=== PATIENT | female | born 1940 | race Caucasian/White ===

== ENCOUNTER 2021-08-29 11:17 | Inpatient (IN) ==
[2021-08-29] MEDS ORDERED: fentaNYL citrate 100 MCG/2 ML VIAL IV STA (11:48)
[2021-08-29 12:03] LABS: Basophils # (auto) 0.02 K/uL (0-0.2); Basophils % (auto) 0.3 %; Eosinophils # (auto) 0.22 K/uL (0-0.5); Hematocrit (blood only) 42.7 % (37-47); Hemoglobin 13.3 g/dL (12.0-16.0); Immature Granulocytes # (auto) 0.04 K/uL (0.00-0.02); Immature Granulocytes % (auto) 0.5 %; Lymphocytes # (auto) 1.01 K/uL (1.2-3.4); Lymphocytes % (auto) 13.6 %; Mean Corpuscular Hemoglobin 28.3 pg (25-34); Mean Corpuscular Hgb Conc 31.1 g/dL (32-36); Mean Corpuscular Volume 90.9 fL (80-100); Mean Platelet Volume 10.9 fL (7.4-10.4); Monocytes # (auto) 0.37 K/uL (0.11-0.59); Neutrophils # (auto) 5.74 K/uL (1.4-6.5); Neutrophils % (auto) 77.6 %; Platelet Count 200 K/uL (130-400); RDW Coefficient of Variation 14.5 % (11.5-14.5); RDW Standard Deviation 48.1 fL (36.4-46.3)
[2021-08-29 12:05] LABS: Appearance Urine Clear (Clear); Bilirubin Urine Negative (Negative); Blood Urine Negative (Negative); Color Urine Yellow; Glucose Urine UA Negative (Negative); Ketones Urine Trace (Negative); Leukocyte Esterase Urine Negative (Negative); Nitrite Urine Negative (Negative); Protein Urine Negative (Negative); Specific Gravity Urine 1.014 (1.000-1.030); Urobilinogen Urine Negative (Negative)
[2021-08-29 12:19] LABS: Troponin I High Sensitivity 7.9 pg/ml (0-14)
[2021-08-29 12:21] LABS: Albumin Globulin Ratio 1.3 (0.9-2); Albumin Level 3.5 gm/dl (3.4-5.0); BUN Creatinine Ratio 19.1 (10-20); Bilirubin,Total 0.6 mg/dl (0.2-1.0); Calcium 8.5 mg/dl (8.5-10.1); Creatinine Clr Calc Pharmacy 37.4 ml/min; Est GFR (African American) 54.5 ml/min; Globulin 2.7 gm/dl (2.5-4.0); Total Protein 6.2 gm/dl (6.0-8.3)
--- NOTE | 2021-08-29 12:27 | Emergency Department Note ---
Impression & Plan Near syncope, Splenic infarct, Anticoagulant long-term use, Abdominal pain, Carotid aneurysm, right ED Provider Note Provider: Joey Patricio MD DATE OF SERVICE: 08/29/2021 CHIEF COMPLAINT: Abdominal pain, near syncope HISTORY OF PRESENT ILLNESS: Patient is a 81-year-old female history of mi graines, prior strokes, atrial fibrillation on Eliquis presenting here today via ambulance from her daughter's home. Visiting from out of town. Had a stroke with the last 1 about 6 4 to 6 weeks ago. Had aphasia at that time that has improved. Patient states he was visiting her daughter today and was getting ready been on some make-up when she had sudden onset of lower abdominal pain into her low back. No falls reported recently. Patient states she went and sat on the bed and then felt lightheaded and laid back on the bed. Daughter reports she found the patient here and the patient was pale and diaphoretic and was having word finding issues. She did call her sister who is a nurse on the phone and she recommended calling 911. Patient states her speech is improved now and the headache she had last night has resolved. Patient denies chest pain or shortness of breath at this time. Reports lower abdominal pain to the lower back but denies nausea at this point. Patient states she took nausea medicine prior to coming in. Patient denies numbness or tingling or weakness in the oth er extremities focally. Patient reports some urinary frequency but no blood in the urine or pain with urination. REVIEW OF SYSTEMS: A total of 10 review of systems was obtained and negative except as stated above in the HPI. PAST MEDICAL HISTORY: As noted above MEDICATIONS: Reviewed home medication list SOCIAL HISTORY: Former smoker PHYSICAL EXAM: GENERAL: alert and oriented in no acute distress on stretcher Head: normocephalic and atraumatic EYES: No injection, discharge or icterus. PERRL NECK: Trachea midline. Supple. ENT: Mucous membranes pink and moist. LUNGS: Airway patent. No retractions. Breath sounds clear with good air entry bilaterally. HEART: Regular bradycardic rate and rhythm. No chest wall tenderness ABDOMEN: Soft minimal to no tenderness on exam. No significant flank tenderness. SKIN: Acyanotic, warm, dry, without rashes EXTREMITIES: Without swelling, tenderness or deformity NEUROLOGICAL: No focal deficits. No aphasia. No facial droop or slurred speech. Normal strength and tone in the extremities. Sensation to gross touch normal. EK bpm sinus bradycardia without PVC or PAC. No acute ST segment elevation or depression with some diffuse T wave inversions with a QTC of 393. No priors available. CONTINUOUS CARDIAC MONITORING: was ordered and showed a heart rate of 40s-60s bpm in sinus bradycardia to normal sinus rhythm Patient's laboratory studies and imaging reviewed. Differential includes gastrointestinal, neurologic, infection, dehydration, metabolic abnormality, hypo/hyperglycemia, electrolyte disturbance, anemia, hypoxia, cardiac sources, intracerebral event, toxicologic, as well as other pathologies. IMPRESSION/MEDICAL DECISION MAKING: Patient with abdominal pain into the back pain as well as a history of anticoagulation on A. fib and recent stroke. Had a near syncopal event with paleness and diaphoresis reported with some transient word finding. Question of this may been hypotension related but with her history of stroke this is concerning. Thrombolytics contraindicated given her use of Eliquis at this point. Basic blood work was obtained. Does report some urinary frequency and urine sample sent. Straight cath urine sample without concerns for infection or blood. Negative COVID test. Blood work here without anemia or leukocytosis. No significant electrolyte abnormalities signs of renal dysfunction. No hepatitis or pancreatitis noted on blood work. High-sensitivity troponin is not elevated. EKG shows a sinus bradycardia and again the patient denies active chest pain. Patient without significant neurodeficit or aphasia at this time and have a lower suspicion for large vessel occlusion. CT of the head as well as CT angiograms of the head and neck as well as CT abdomen pelvis will be obtained. CT per radiology of the head without evidence of mass, hemorrhage, or acute ischemia noted by CT. An aneurysm of the right internal carotid artery is noted without evidence of rupture also with a 50% narrowing of the proximal right internal carotid artery. Patient states she knows she has a history of an aneurysm but was unclear of details. CT abdomen pelvis questions of splenic infarct but no other acute bleed noted on the read. Patient has been on Eliquis. Discussed with the patient. Given that she had some speech issues earlier as well as infarcts possibly while on anticoagulation discuss with her further observation here and MRI imaging to exclude stroke. Was contacted. DIAGNOSIS: Near syncope, abdominal pain, splenic infarct, right carotid aneurysm DISPOSITION: Hospitalist will evaluate Patient was agreeable with this plan. Daughter was updated at bedside as well. Past Med/Surg History Social History Smoking Status: Former smoker Preferred Language: Gabonese Feels Safe at Home: Yes Allergies Allergies Allergy/AdvReac Type Severity Reaction Status Date / Time amoxicillin AdvReac Migraine Unverified 08/29/21 12:50 atorvastatin [From Lipitor] AdvReac Muscle Pain Unverified 08/29/21 12:50 levofloxacin [From Levaquin] AdvReac Migraine Unverified 08/29/21 12:50 loratadine [From Claritin-D] AdvReac Migraine Unverified 08/29/21 12:50 losartan [From Cozaar] AdvReac Migraine Unverified 08/29/21 12:50 pseudoephedrine AdvReac Migraine Unverified 08/29/21 12:50 [From Claritin-D] Home Meds Home Medications Medication Instructions Recorded Confirmed apixaban 5 mg tablet (Eliquis) 5 mg PO BID 08/29/21 08/29/21 atogepant 60 mg tablet (Qulipta) 60 mg PO QAM 08/29/21 08/29/21 azithromycin 250 mg tablet 250 mg PO DIRECTED 08/29/21 08/29/21 divalproex 500 mg tablet,extended 500 mg PO HS 08/29/21 08/29/21 release 24 hr docusate sodium 100 mg capsule 100 mg PO BID 08/29/21 08/29/21 levothyroxine 75 mcg tablet 75 mcg PO QAM 08/29/21 08/29/21 metoprolol succinate 50 mg 50 mg PO BID 08/29/21 08/29/21 tablet,extended release 24 hr ondansetron HCl 4 mg tablet 4 mg PO Q4H 08/29/21 08/29/21 pantoprazole 40 mg tablet,delayed 40 mg PO BID 08/29/21 08/29/21 release rizatriptan 10 mg tablet 0 mg PO .COMPLEX 08/29/21 08/29/21 Results & Data (ED) Vital Signs Vital Signs - 24 hr 08/29/21 11:22 08/29/21 11:29 08/29/21 11:59 Temperature 36.7 C Temperature Source Oral Pulse Rate 54 L 58 L Pulse Rate [Right Finger] 54 L Pulse Rhythm Regular Regular Pulse Strength Normal Pulse Strength [Right Finger] Normal Respiratory Rate 19 19 19 Respiratory Effort / Characteristics Non-Labored Spontaneous Non-Labored Spontaneous Respiratory Depth Normal Normal Respiratory Pattern Regular Blood Pressure 169/87 H Blood Pressure [Right Arm] 169/87 H Blood Pressure Mean 114 Blood Pressure Mean [Right Arm] 114 Blood Pressure Position Lying Blood Pressure Position [Right Arm] Lying Pulse Oximetry 97 97 96 Oxygen Delivery Method Room Air Room Air Room Air Sepsis Recent Fever Within 48 Hours No Sepsis New/Unexplained Change in Mental Status No Sepsis Action Taken by Nursing No Action Required 08/29/21 13:06 08/29/21 14:18 08/29/21 15:00 Temperature Temperature Source Pulse Rate Pulse Rate [Right Finger] 51 L 49 L 47 L Pulse Rhythm Pulse Strength Pulse Strength [Right Finger] Normal Normal Normal Respiratory Rate 18 17 18 Respiratory Effort / Characteristics Non-Labored Spontaneous Non-Labored Spontaneous Non-Labored Spontaneous Respiratory Depth Normal Normal Normal Respiratory Pattern Regular Regular Blood Pressure Blood Pressure [Right Arm] 166/83 H 173/99 H Blood Pressure Mean Blood Pressure Mean [Right Arm] 110 123 Blood Pressure Position Blood Pressure Position [Right Arm] Lying Lying Pulse Oximetry 98 100 99 Oxygen Delivery Method Room Air Room Air Room Air Sepsis Recent Fever Within 48 Hours Sepsis New/Unexplained Change in Mental Status Sepsis Action Taken by Nursing Laboratory Data Result diagrams: 08/29/21 11:30 08/29/21 11:30 Lab Results 08/29/21 08/29/21 08/29/21 Range/Units 11:30 11:30 11:30 WBC 7.40 (4.8-10.8) K/uL RBC 4.70 (4.2-5.4) M/uL Hgb 13.3 (12.0-16.0) g/dL Hct 42.7 (37-47) % MCV 90.9 (80-100) fL MCH 28.3 (25-34) pg MCHC 31.1 L (32-36) g/dL RDW Std Deviation 48.1 H (36.4-46.3) fL RDW Coeff of Mary 14.5 (11.5-14.5) % Plt Count 200 (130-400) K/uL MPV 10.9 H (7.4-10.4) fL Immature Gran % (Auto) 0.5 % Neut % (Auto) 77.6 % Lymph % (Auto) 13.6 % [place] % (Auto) 5.0 % Eos % (Auto) 3.0 % Baso % (Auto) 0.3 % Neut # (Auto) 5.74 (1.4-6.5) K/uL Lymph # (Auto) 1.01 L (1.2-3.4) K/uL [place] # (Auto) 0.37 (0.11-0.59) K/uL Eos # (Auto) 0.22 (0-0.5) K/uL Baso # (Auto) 0.02 (0-0.2) K/uL Immature Gran # (Auto) 0.04 H (0.00-0.02) K/uL Sodium 142 (136-145) mmol/L Potassium 4.0 (3.5-5.1) mmol/L Chloride 107 (98-107) mmol/L Carbon Dioxide 28 (21-32) mmol/L Anion Gap 7 (3-11) BUN 21 (6-23) mg/dl Creatinine 1.10 (0.6-1.2) mg/dl Est Cr Clr Drug Dosing 37.4 ml/min Est GFR ( Amer) 54.5 ml/min Est GFR (Non-Af Amer) 47.0 ml/min BUN/Creatinine Ratio 19.1 (10-20) Glucose 139 H (70-99(Fasting)) mg/dl Calcium 8.5 (8.5-10.1) mg/dl Total Bilirubin 0.6 (0.2-1.0) mg/dl AST 10 L (13-39) U/L ALT 6 L (7-52) U/L Alkaline Phosphatase 65 (34-104) U/L Troponin I High Sens 7.9 (0-14) pg/ml Total Protein 6.2 (6.0-8.3) gm/dl Albumin 3.5 (3.4-5.0) gm/dl Globulin 2.7 (2.5-4.0) gm/dl Albumin/Globulin Ratio 1.3 (0.9-2) Lipase 8 L (11-82) U/L Urine Color Urine Appearance (Clear) Urine pH (4.5-7.5) Ur Specific [place] (1.000-1.030) Urine Protein (Negative) Urine Glucose (UA) (Negative) Urine Ketones (Negative) Urine Blood (Negative) Urine Nitrite (Negative) Urine Bilirubin (Negative) Urine Urobilinogen (Negative) Ur Leukocyte Esterase (Negative) Valproic Acid 67 (50-100) mcg/ml SARS-CoV-2, RNA, NAAT (NEGATIVE) 08/29/21 08/29/21 Range/Units 11:35 11:55 WBC (4.8-10.8) K/uL RBC (4.2-5.4) M/uL Hgb (12.0-16.0) g/dL Hct (37-47) % MCV (80-100) fL MCH (25-34) pg MCHC (32-36) g/dL RDW Std Deviation (36.4-46.3) fL RDW Coeff of Mary (11.5-14.5) % Plt Count (130-400) K/uL MPV (7.4-10.4) fL Immature Gran % (Auto) % Neut % (Auto) % Lymph % (Auto) % [place] % (Auto) % Eos % (Auto) % Baso % (Auto) % Neut # (Auto) (1.4-6.5) K/uL Lymph # (Auto) (1.2-3.4) K/uL [place] # (Auto) (0.11-0.59) K/uL Eos # (Auto) (0-0.5) K/uL Baso # (Auto) (0-0.2) K/uL Immature Gran # (Auto) (0.00-0.02) K/uL Sodium (136-145) mmol/L Potassium (3.5-5.1) mmol/L Chloride (98-107) mmol/L Carbon Dioxide (21-32) mmol/L Anion Gap (3-11) BUN (6-23) mg/dl Creatinine (0.6-1.2) mg/dl Est Cr Clr Drug Dosing ml/min Est GFR ( Amer) ml/min Est GFR (Non-Af Amer) ml/min BUN/Creatinine Ratio (10-20) Glucose (70-99(Fasting)) mg/dl Calcium (8.5-10.1) mg/dl Total Bilirubin (0.2-1.0) mg/dl AST (13-39) U/L ALT (7-52) U/L Alkaline Phosphatase (34-104) U/L Troponin I High Sens (0-14) pg/ml Total Protein (6.0-8.3) gm/dl Albumin (3.4-5.0) gm/dl Globulin (2.5-4.0) gm/dl Albumin/Globulin Ratio (0.9-2) Lipase (11-82) U/L Urine Color Yellow Urine Appearance Clear (Clear) Urine pH 7.0 (4.5-7.5) Ur Specific [place] 1.014 (1.000-1.030) Urine Protein Negative (Negative) Urine Glucose (UA) Negative (Negative) Urine Ketones Trace H (Negative) Urine Blood Negative (Negative) Urine Nitrite Negative (Negative) Urine Bilirubin Negative (Negative) Urine Urobilinogen Negative (Negative) Ur Leukocyte Esterase Negative (Negative) Valproic Acid (50-100) mcg/ml SARS-CoV-2, RNA, NAAT NEGATIVE (NEGATIVE) Administered Medications Discontinued Medications Fentanyl Citrate (Fentanyl Citrate 100 Mcg/2 Ml Vial) 50 mcg IV NOW STA Stop: 08/29/21 11:49 Last Admin: 08/29/21 12:12 Dose: 50 mcg Documented by: [id number] Ioversol (Optiray 320 125ml) 120 ml IV ONCE ONE Stop: 08/29/21 13:16 Last Admin: 08/29/21 13:16 Dose: 120 ml Documented by: [id number] Imaging Data Radiologist's Impression: Abdomen/Pelvis CT 08/29/21 11:47 CT abd pelvis IV con only CLINICAL HISTORY: lower abd pain, near syncope TECHNIQUE: Helical axial images of the abdomen and pelvis were obtained and displayed. Automated dose lowering techniques and/or adjustment according to patient size were utilized for this exam. This exam was performed with intravenous contrast. COMPARISON: None available at the time of this dictation. FINDINGS: Lower chest: No acute abnormality Liver: Unremarkable. No focal lesions are seen. Gallbladder and biliary tree: No calcified gallstones. Normal caliber wall. No intra- or extrahepatic biliary ductal dilation. Pancreas: Unremarkable, no focal lesions. Spleen: Wedge-shaped hypoenhancing region in the spleen is noted. Adrenals: Unremarkable. Kidneys and ureters: Multiple renal cysts are seen. Bladder: Limited evaluation due to underdistention. Reproductive organs: Unremarkable. Bowel: Diverticulosis is seen without evidence of diverticulitis. Patient is status post appendectomy. There is a moderate to large hiatal hernia. A duodenal diverticulum is seen. Lymph nodes Retroperitoneal: Unremarkable. Mesenteric: Unremarkable. Pelvic: Unremarkable. Peritoneum: Normal. Vessels: Atherosclerotic calcifications are seen. There is a 20 mm infrarenal aortic aneurysm. Abdominal wall: Unremarkable. Bones: Unremarkable. IMPRESSION: 1. 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 Correlation with prior imaging, if available, is recommended to establish chronicity, however acute infarct may explain patient's abdominal pain. 2. Moderate to large hiatal hernia. Additional findings as above. ACT 112: Negative or not required by law. Electronically signed by: Trenton Culver M.D. 08/29/2021 1:44 PM Neck CTA 08/29/21 11:47 CT ANGIOGRAM OF THE BRAIN COMBO; CT ANGIOGRAM OF THE NECK CLINICAL HISTORY: Near syncope. Transient aphasia. Headache. COMPARISON STUDY: No priors. TECHNIQUE: Unenhanced axial CT scan of the brain is performed. Subsequently, following the IV administration of 120 of Optiray 320, CT angiogram of the head and neck was performed from the aortic arch to the vertex. Images are reviewed in the axial, sagittal, and coronal planes. 3-D MIPS images are created and assessed. IV contrast was administered without complication. All measurements were calculated based on NASCET criteria. A dose lowering technique was utilized adhering to the principles of ALARA. CT DOSE: 1962.23 mGy.cm FINDINGS: Brain parenchyma: There is age-related involutional change noting moderate subcortical and periventricular microangiopathic disease. There is no hemorrhage, mass effect, or evidence of acute territorial ischemia by CT criteria. There is no evidence of enhancing mass lesion on the angiogram phase images. The ventricles, sulci, and cisterns are normal in configuration. Amos- white matter differentiation is preserved. No extra-axial fluid collection is seen. Thoracic aorta: There is mild atherosclerotic calcification of the thoracic aorta. Visualized portions of the thoracic aorta are normal in caliber. The aortic arch demonstrates standard 3-vessel anatomy. Right carotid arterial system: The right common carotid artery is widely patent. Atherosclerotic plaque is seen in the carotid bulb, and there is less than 50% luminal narrowing of the proximal right ICA seen on image #144. The remainder of the right internal carotid artery is widely patent, as is the right external carotid artery. Left carotid arterial system: The left common carotid artery is widely patent, as are the left internal and external carotid arteries. Vertebral arteries: The vertebral arteries are widely patent bilaterally noting left-sided dominance. Subclavian arteries: The subclavian arteries are patent bilaterally. There is plaque seen in the left subclavian artery below the thoracic outlet. Intracranial vasculature: There is atherosclerotic calcification of the cavernous carotid and vertebral arteries. The internal carotid arteries are patent at the skull base, as are the anterior and middle cerebral arteries bilaterally. The vertebrobasilar system and posterior cerebral arteries are widely patent. The lower vertebral artery is dominant. There is a 1.3 x 1.1 x 1.5 cm aneurysm of the supraclinoid right internal carotid artery extending into the sella. This is best seen on axial image #105. No additional aneurysm is seen throughout the intracranial circulation. There are no foci of high-grade stenosis or focal occlusion seen throughout The intracranial circulation. Jugular veins: Patent bilaterally. Dural sinuses: Patent. Lung apices: Partially visualized upper lobe lung parenchyma appears clear. Soft tissues: The visualized pharyngeal soft tissues are normal in appearance noting angiographic phase technique. The oropharyngeal airway appears widely patent. The thyroid gland is atrophic. The salivary glands are normal in appeara nce. No cervical lymphadenopathy is seen. Skeletal structures: The skeletal structures are osteopenic. The calvarium appears intact. The cervical spine is maintained noting mild spondylosis. No lytic or blastic lesion is seen. Orbits: The bony orbits are intact. Orbital contents are normal as visualized noting bilateral ocular lens implants. Sinuses and mastoids: The paranasal sinuses are clear. The mastoid air cells are well pneumatized. IMPRESSION: 1. There is no hemorrhage, mass effect, or evidence of acute territorial ischemia by CT criteria. 2. 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 There is no evidence of aneurysm rupture at this time. Neurosurgical/neurointerventional follow-up is advised. 3. Otherwise unremarkable CT angiogram of the brain. 4. Atherosclerotic plaque causes less than 50% luminal narrowing of the proximal right internal carotid artery. 5. Otherwise unremarkable CT angiogram of the neck. ACT 112: Positive. There are findings on this exam that require communication between the performing entity and the patient following Patient Test Result Information Act ([place] Act 112) guidelines. Electronically signed by: Gurmeet Marin M.D. 08/29/2021 1:38 PM Head CTA 08/29/21 11:48 CT ANGIOGRAM OF THE BRAIN COMBO; CT ANGIOGRAM OF THE NECK CLINICAL HISTORY: Near syncope. Transient aphasia. Headache. COMPARISON STUDY: No priors. TECHNIQUE: Unenhanced axial CT scan of the brain is performed. Subsequently, following the IV administration of 120 of Optiray 320, CT angiogram of the head and neck was performed from the aortic arch to the vertex. Images are reviewed in the axial, sagittal, and coronal planes. 3-D MIPS images are created and assessed. IV contrast was administered without complication. All measurements were calculated based on NASCET criteria. A dose lowering technique was utilized adhering to the principles of ALARA. CT DOSE: 1962.23 mGy.cm FINDINGS: Brain parenchyma: There is age-related involutional change noting moderate subcortical and periventricular microangiopathic disease. There is no hemorrhage, mass effect, or evidence of acute territorial ischemia by CT criteria. There is no evidence of enhancing mass lesion on the angiogram phase images. The ventricles, sulci, and cisterns are normal in configuration. Amos- white matter differentiation is preserved. No extra-axial fluid collection is seen. Thoracic aorta: There is mild atherosclerotic calcification of the thoracic aorta. Visualized portions of the thoracic aorta are normal in caliber. The aortic arch demonstrates standard 3-vessel anatomy. Right carotid arterial system: The right common carotid artery is widely patent. Atherosclerotic plaque is seen in the carotid bulb, and there is less than 50% luminal narrowing of the proximal right ICA seen on image #144. The remainder of the right internal carotid artery is widely patent, as is the right external carotid artery. Left carotid arterial system: The left common carotid artery is widely patent, as are the left internal and external carotid arteries. Vertebral arteries: The vertebral arteries are widely patent bilaterally noting left-sided dominance. Subclavian arteries: The subclavian arteries are patent bilaterally. There is plaque seen in the left subclavian artery below the thoracic outlet. Intracranial vasculature: There is atherosclerotic calcification of the cavernous carotid and vertebral arteries. The internal carotid arteries are patent at the skull base, as are the anterior and middle cerebral arteries bilaterally. The vertebrobasilar system and posterior cerebral arteries are widely patent. The lower vertebral artery is dominant. There is a 1.3 x 1.1 x 1.5 cm aneurysm of the supraclinoid right internal carotid artery extending into the sella. This is best seen on axial image #105. No additional aneurysm is seen throughout the intracranial circulation. There are no foci of high-grade stenosis or focal occlusion seen throughout The intracranial circulation. Jugular veins: Patent bilaterally. Dural sinuses: Patent. Lung apices: Partially visualized upper lobe lung parenchyma appears clear. Soft tissues: The visualized pharyngeal soft tissues are normal in appearance noting angiographic phase technique. The oropharyngeal airway appears widely patent. The thyroid gland is atrophic. The salivary glands are normal in appearance. No cervical lymphadenopathy is seen. Skeletal structures: The skeletal structures are osteopenic. The calvarium appears intact. The cervical spine is maintained noting mild spondylosis. No lytic or blastic lesion is seen. Orbits: The bony orbits are intact. Orbital contents are normal as visualized noting bilateral ocular lens implants. Sinuses and mastoids: The paranasal sinuses are clear. The mastoid air cells are well pneumatized. IMPRESSION: 1. There is no hemorrhage, mass effect, or evidence of acute territorial ischemia by CT criteria. 2. 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 There is no evidence of aneurysm rupture at this time. Neurosurgical/neurointerventional follow-up is advised. 3. Otherwise unremarkable CT angiogram of the brain. 4. Atherosclerotic plaque causes less than 50% luminal narrowing of the proximal right internal carotid artery. 5. Otherwise unremarkable CT angiogram of the neck. ACT 112: Positive. There are findings on this exam that require communication between the performing entity and the patient following Patient Test Result Information Act ([place] Act 112) guidelines. Electronically signed by: Gurmeet Marin M.D. 08/29/2021 1:38 PM Discharge Plan Visit Data Chief Complaint: Abdominal Pain ED Provider: Joey Patricio Discharge Problem: Near syncope, Splenic infarct, Anticoagulant long-term use, Abdominal pain, Carotid aneurysm, right Patient Disposition: Being Evaluated by Hospitalist Forms Stand Alone Forms: My [facility] Prescriptions Prescriptions: No Action divalproex 500 mg Tablet Extended Release 24 Hr 500 mg PO HS RF: 0 azithromycin 250 mg Tablet 250 mg PO DIRECTED RF: 0 metoprolol succinate 50 mg Tablet Extended Release 24 Hr 50 mg PO BID RF: 0 ondansetron HCl [Zofran] 4 mg Tablet 4 mg PO Q4H RF: 0 rizatriptan 10 mg Tablet 0 mg PO .COMPLEX RF: 0 levothyroxine 75 mcg Tablet 75 mcg PO QAM RF: 0 pantoprazole 40 mg Tablet,Delayed Release (Dr/Ec) 40 mg PO BID RF: 0 docusate sodium 100 mg Capsule 100 mg PO BID RF: 0 Eliquis 5 mg Tablet 5 mg PO BID RF: 0 Qulipta 60 mg Tablet 60 mg PO QAM RF: 0 Referrals Referrals: PCP,NO [Primary Care Provider] -
[2021-08-29] MEDS ORDERED: OPTIRAY 320 125ml IV ONE (13:15)
--- NOTE | 2021-08-29 13:40 | CT Scan Report ---
CT ANGIOGRAM OF THE BRAIN COMBO; CT ANGIOGRAM OF THE NECK CLINICAL HISTORY: Near syncope. Transient aphasia. Headache. COMPARISON STUDY: No priors. TECHNIQUE: Unenhanced axial CT scan of the brain is performed. Subsequently, following the IV adminis tration of 120 of [address] 320, CT angiogram of the head and neck was performed from the aortic arch t o the vertex. Images are reviewed in the axial, sagittal, and coronal planes. 3-D MIPS images are cre ated and assessed. IV contrast was administered without complication. All measurements were calculate d based on NASCET criteria. A dose lowering technique was utilized adhering to the principles of ALA RA. CT DOSE: 1962.23 mGy.cm FINDINGS: Brain parenchyma: There is age-related involutional change noting moderate subcortical and periventri cular microangiopathic disease. There is no hemorrhage, mass effect, or evidence of acute territorial ischemia by CT criteria. There is no evidence of enhancing mass lesion on the angiogram phase images . The ventricles, sulci, and cisterns are normal in configuration. Amos-white matter differentiation is preserved. No extra-axial fluid collection is seen. Thoracic aorta: There is mild atherosclerotic calcification of the thoracic aorta. Visualized portion s of the thoracic aorta are normal in caliber. The aortic arch demonstrates standard 3-vessel anatomy . Right carotid arterial system: The right common carotid artery is widely patent. Atherosclerotic plaq ue is seen in the carotid bulb, and there is less than 50% luminal narrowing of the proximal right IC A seen on image #144. The remainder of the right internal carotid artery is widely patent, as is the right external carotid artery. Left carotid arterial system: The left common carotid artery is widely patent, as are the left pharmacy graduate intern al and external carotid arteries. Vertebral arteries: The vertebral arteries are widely patent bilaterally noting left-sided dominance. Subclavian arteries: The subclavian arteries are patent bilaterally. There is plaque seen in the left subclavian artery below the thoracic outlet. Intracranial vasculature: There is atherosclerotic calcification of the cavernous carotid and vertebr al arteries. The internal carotid arteries are patent at the skull base, as are the anterior and midd le cerebral arteries bilaterally. The vertebrobasilar system and posterior cerebral arteries are wide ly patent. The lower vertebral artery is dominant. 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 This is best seen on axial image #10 5. No additional aneurysm is seen throughout the intracranial circulation. There are no foci of high- grade stenosis or focal occlusion seen throughout The intracranial circulation. Jugular veins: Patent bilaterally. Dural sinuses: Patent. Lung apices: Partially visualized upper lobe lung parenchyma appears clear. Soft tissues: The visualized pharyngeal soft tissues are normal in appearance noting angiographic pha se technique. The oropharyngeal airway appears widely patent. The thyroid gland is atrophic. The sali vary glands are normal in appearance. No cervical lymphadenopathy is seen. Skeletal structures: The skeletal structures are osteopenic. The calvarium appears intact. The cervic al spine is maintained noting mild spondylosis. No lytic or blastic lesion is seen. Orbits: The bony orbits are intact. Orbital contents are normal as visualized noting bilateral ocular lens implants. Sinuses and mastoids: The paranasal sinuses are clear. The mastoid air cells are well pneumatized. IMPRESSION: 1. There is no hemorrhage, mass effect, or evidence of acute territorial ischemia by CT criteria. 2. 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 There is no evidence of aneurysm rupture at this time. Neurosurgical/neurointerventional follow-up is advised. 3. Otherwise unremarkable CT angiogram of the brain. 4. Atherosclerotic plaque causes less than 50% luminal narrowing of the proximal right internal carot id artery. 5. Otherwise unremarkable CT angiogram of the neck. ACT 112: Positive. There are findings on this exam that require communication between the performing entity and the patient following Patient Test Result Information Act ([place] Act 112) guidelines. Electronically signed by: Gurmeet Marin M.D. 08/29/2021 1:38 PM
--- NOTE | 2021-08-29 13:46 | CT Scan Report ---
CT abd pelvis IV con only CLINICAL HISTORY: lower abd pain, near syncope TECHNIQUE: Helical axial images of the abdomen and pelvis were obtained and displayed. Automated dose lowering techniques and/or adjustment according to patient size were utilized for this exam. This e xam was performed with intravenous contrast. COMPARISON: None available at the time of this dictation. FINDINGS: Lower chest: No acute abnormality Liver: Unremarkable. No focal lesions are seen. Gallbladder and biliary tree: No calcified gallstones. Normal caliber wall. No intra- or extrahepatic biliary ductal dilation. Pancreas: Unremarkable, no focal lesions. Spleen: Wedge-shaped hypoenhancing region in the spleen is noted. Adrenals: Unremarkable. Kidneys and ureters: Multiple renal cysts are seen. Bladder: Limited evaluation due to underdistention. Reproductive organs: Unremarkable. Bowel: Diverticulosis is seen without evidence of diverticulitis. Patient is status post appendectomy . There is a moderate to large hiatal hernia. A duodenal diverticulum is seen. Lymph nodes Retroperitoneal: Unremarkable. Mesenteric: Unremarkable. Pelvic: Unremarkable. Peritoneum: Normal. Vessels: Atherosclerotic calcifications are seen. There is a 20 mm infrarenal aortic aneurysm. Abdominal wall: Unremarkable. Bones: Unremarkable. IMPRESSION: 1. 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 Correlation with prior imagin g, if available, is recommended to establish chronicity, however acute infarct may explain patient's abdominal pain. 2. Moderate to large hiatal hernia. Additional findings as above. ACT 112: Negative or not required by law. Electronically signed by: Trenton Culver M.D. 08/29/2021 1:44 PM
--- NOTE | 2021-08-29 15:05 | History & Physical Report ---
Date of Service August 29, 2021 Assessment & Plan (1) Abdominal pain: (2) Splenic infarct: Plan: Patient is 81 y/o F with PMH CVA, HTN, HLD intolerant to statins, atrial fibrillation anticoagulated on Eliquis, migraine, hypothyroidism presented to ER with complaint of abdominal pain today to epigastric, LUQ with nausea In ER afebrile, vitals stable. No leukocytosis. Unremarkable LFTs, lipase CT ABD/PELVIS: 1. 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 Correlation with prior imaging, if available, is recommended to establish chronicity, however acute infarct may explain patient's abdominal pain. 2. Moderate to large hiatal hernia. ?Abdominal pain secondary to splenic infarct. Unsure of chronicity of splenic infarct vs hiatal hernia vs gallbladder dysfunction Continue Eliquis General surgery consultation. No acute surgical intervention recommended CBC, BMP in am (3) Near syncope: Plan: After onset of abdominal pain developed lightheaded, diaphoresis and had brief episode of mumbled speech DDX: vasovagal, orthostatic hypotension, tachybrady syndrome, TIA/CVA In ER no focal neuro deficits CT Head: no acute findings CTA Head and neck: 1. There is no hemorrhage, mass effect, or evidence of acute territorial ischemia by CT criteria. 2. 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 There is no evidence of aneurysm rupture at this time. Neurosurgical/neurointerventional follow-up is advised. 3. Otherwise unremarkable CT angiogram of the brain. 4. Atherosclerotic plaque causes less than 50% luminal narrowing of the proximal right internal carotid artery. 5. Otherwise unremarkable CT angiogram of the neck. Orothostatic vitals Tele to monitor for arrhythmias A1c, TSH pending MRI brain echo continue Eliquis Neurology consult (4) CVA (cerebral vascular accident): (5) Carotid aneurysm, right: Plan: History CVA 07/2021. Was started on Eliquis and her aspirin was discontinued Known carotid aneurysm dx in 07/2021. Follows with neurosurgeon in [place], [place]. Patient denied further workup/intervention Records requested from outside hospital Continue Eliquis Intolerant to statins (6) Atrial fibrillation: (7) Bradycardia: Plan: DDX: tachybrady syndrome On chronic anticoagulation Continue Eliquis Current bradycardia. Patient reports dx afib during CVA admission in 07/2021 and was noted to have bradycardia down to 30's and metoprolol succ was reduced from 50mg BID to 25mg BID Reduce metoprolol succinate from 25mg BID to 12.5mg BID Monitor on tele May need cardiology consult if continued bradycardia or episodes of tachycardia (8) Migraine: Plan: No current STRONG Continue divalproex, Qulipta (9) Hypothyroidism: Plan: TSH pending Continue levothyroxine DVT Prophylaxis On Eliquis DNR/DNI as per discussion with pt Follows with [facility] in [place], [place] for routine care Pt was seen and care coordinated with Dr Andrew. See addendum History of Present Illness Chief Complaint: Abdominal pain Primary Care Provider: Dr Lola Niño Patient is 81 y/o F with PMH CVA, HTN, HLD intolerant to statins, atrial fibrillation anticoagulated on Eliquis, migraine, hypothyroidism presented to ER with complaint of abdominal pain. Patient reports she is from out of town and is visiting her family. She reports she was getting ready today standing at sink washing her face when she had sudden onset of epigastric and left upper quadrant pain described as severe. Patient reports is unable to further describe pain. She feels the pain radiated to her back. Also complains of associated nausea. Denies any vomiting or diarrhea. Patient reports she developed lightheaded and diaphoretic and went to lay on bed. Her daughter walked in and found her laying on her bed and she appeared pale and daughter reports that she was crying and "jibber jabbering" and EMS was called. Here in ER patient without any speech changes and no neuro symptoms. States has hiatal hernia. She states will get epigastric discomfort with eating ice cream that has been ongoing for months. Reports in 07/2021 had episode of trouble speaking and "jibber jabbering" and was taken to [facility] in [place], [place]. Patient reports her trouble speaking lasted a day or so and then she returned to baseline. She reports had MRI brain and was told that she had had a stroke and was told that she has an aneurysm to the artery in her neck. Patient states while hospitalized she was found to have A. fib. She reports she was also noted to have bradycardia down into the 30s so her metoprolol succinate was decreased from 50 mg twice daily to 25 mg twice daily. She reports she followed up with neurosurgeon in [facility] regarding carotid aneurysm who had recommended further intervention however patient and family declined. Reports chronic urinary frequency at night only. Denies hematuria, dysuria. Denies fever/chills, diaphoresis, diarrhea, constipation, STRONG, syncope, vision changes, neck pain, CP, SOB, orthopnea, palpitations, cough, sore throat, choking, otalgia, rhinorrhea, paresthesias, weakness, extremity weakness, extremity edema, rashes. Allergies Allergy/AdvReac Type Severity Reaction Status Date / Time amoxicillin AdvReac Migraine Unverified 08/29/21 12:50 atorvastatin [From Lipitor] AdvReac Muscle Pain Unverified 08/29/21 12:50 levofloxacin [From Levaquin] AdvReac Migraine Unverified 08/29/21 12:50 loratadine [From Claritin-D] AdvReac Migraine Unverified 08/29/21 12:50 losartan [From Cozaar] AdvReac Migraine Unverified 08/29/21 12:50 pseudoephedrine AdvReac Migraine Unverified 08/29/21 12:50 [From Claritin-D] Home Medications Medication Instructions Recorded Confirmed Type apixaban 5 mg tablet (Eliquis) 5 mg PO BID 08/29/21 08/29/21 History atogepant 60 mg tablet (Qulipta) 60 mg PO QAM 08/29/21 08/29/21 History azithromycin 250 mg tablet 250 mg PO DIRECTED 08/29/21 08/29/21 History divalproex 500 mg tablet,extended 500 mg PO HS 08/29/21 08/29/21 History release 24 hr docusate sodium 100 mg capsule 100 mg PO BID 08/29/21 08/29/21 History levothyroxine 75 mcg tablet 75 mcg PO QAM 08/29/21 08/29/21 History metoprolol succinate 50 mg 25 mg PO BID 08/29/21 08/29/21 History tablet,extended release 24 hr ondansetron HCl 4 mg tablet 4 mg PO Q4H 08/29/21 08/29/21 History pantoprazole 40 mg tablet,delayed 40 mg PO BID 08/29/21 08/29/21 History release rizatriptan 10 mg tablet 0 mg PO .COMPLEX 08/29/21 08/29/21 History Past Med/Surg History Medical History Abdominal wall hernia Anticoagulant long-term use Atrial fibrillation Carotid aneurysm, right HTN (hypertension) Hypothyroidism Migraine Postoperative abdominal hernia Stroke Surgical History H/O: hysterectomy History of appendectomy History of lumpectomy of left breast pt reported benign Family History Father Heart disease Alzheimer disease Grandmother (Maternal) Breast cancer Social History Smoking Status: Former smoker Hx Alcohol Use: No Hx Substance Use: No Preferred Language: Tristanian Beliefs That Will Affect Care: None Current Living Situation: Alone Current Living Situation Comment: lives in single story apartment alone without steps Feels Safe at Home: Yes Safety Concerns: Feels Safe At This Time Assistive Devices: Denture - Upper, Denture - Lower and Glasses Review of Systems Review of Systems: All systems reviewed & are unremarkable except as noted in HPI & below Physical Exam Physical Exam: General: no distress, obese Head: normocephalic, atraumatic Eyes: PERRL, EOM's intact, conjunctiva non-injected, anicteric ENT: normal inspection external ears, nose, mucous membranes moist Neck: supple, trachea midline Lungs: clear, no respiratory distress, no wheezing/rhonchi/rales CV: RRR, no murmur, no JVD, no pretibial edema Abd: protuberant, normal BS, soft, +tenderness to palpation epigastric and mild LUQ without rebound or guarding Ext: no cyanosis, no calf tenderness Neuro: A&O x 3, no focal deficits noted, clear speech, normal affect Skin: warm, dry Results & Data Results & Data ([facility]) Vital Signs (Past 12 Hours) Vital Signs Temp Pulse Pulse Resp BP BP Pulse Ox 08/29/21 14:18 49 L 17 166/83 H 100 08/29/21 13:06 51 L 18 98 08/29/21 11:59 58 L 19 96 08/29/21 11:29 54 L 19 169/87 H 97 08/29/21 11:22 36.7 C 54 L 19 169/87 H 97 Laboratory Results Short CBC 08/29/21 Range/Units 11:30 WBC 7.40 (4.8-10.8) K/uL Hgb 13.3 (12.0-16.0) g/dL Hct 42.7 (37-47) % Plt Count 200 (130-400) K/uL BMP 08/29/21 11:30 Sodium 142 Potassium 4.0 Chloride 107 Carbon Dioxide 28 BUN 21 Creatinine 1.10 Glucose 139 H Calcium 8.5 Liver Function 08/29/21 Range/Units 11:30 Total Bilirubin 0.6 (0.2-1.0) mg/dl AST 10 L (13-39) U/L ALT 6 L (7-52) U/L Alkaline Phosphatase 65 (34-104) U/L Albumin 3.5 (3.4-5.0) gm/dl Urine 08/29/21 Range/Units 11:35 Urine Color Yellow Urine Appearance Clear (Clear) Urine pH 7.0 (4.5-7.5) Ur Specific [place] 1.014 (1.000-1.030) Urine Protein Negative (Negative) Urine Glucose (UA) Negative (Negative) Diagnostic Findings Abdomen/Pelvis CT 08/29/21 11:47 CT abd pelvis IV con only CLINICAL HISTORY: lower abd pain, near syncope TECHNIQUE: Helical axial images of the abdomen and pelvis were obtained and displayed. Automated dose lowering techniques and/or adjustment according to patient size were utilized for this exam. This exam was performed with intravenous contrast. COMPARISON: None available at the time of this dictation. FINDINGS: Lower chest: No acute abnormality Liver: Unremarkable. No focal lesions are seen. Gallbladder and biliary tree: No calcified gallstones. Normal caliber wall. No intra- or extrahepatic biliary ductal dilation. Pancreas: Unremarkable, no focal lesions. Spleen: Wedge-shaped hypoenhancing region in the spleen is noted. Adrenals: Unremarkable. Kidneys and ureters: Multiple renal cysts are seen. Bladder: Limited evaluation due to underdistention. Reproductive organs: Unremarkable. Bowel: Diverticulosis is seen without evidence of diverticulitis. Patient is status post appendectomy. There is a moderate to large hiatal hernia. A duodenal diverticulum is seen. Lymph nodes Retroperitoneal: Unremarkable. Mesenteric: Unremarkable. Pelvic: Unremarkable. Peritoneum: Normal. Vessels: Atherosclerotic calcifications are seen. There is a 20 mm infrarenal aortic aneurysm. Abdominal wall: Unremarkable. Bones: Unremarkable. IMPRESSION: 1. 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 Correlation with prior imaging, if available, is recommended to establish chronicity, however acute infarct may explain patient's abdominal pain. 2. Moderate to large hiatal hernia. Additional findings as above. ACT 112: Negative or not required by law. Electronically signed by: Trenton Culver M.D. 08/29/2021 1:44 PM Neck CTA 08/29/21 11:47 CT ANGIOGRAM OF THE BRAIN COMBO; CT ANGIOGRAM OF THE NECK CLINICAL HISTORY: Near syncope. Transient aphasia. Headache. COMPARISON STUDY: No priors. TECHNIQUE: Unenhanced axial CT scan of the brain is performed. Subsequently, following the IV administration of 120 of Optiray 320, CT angiogram of the head and neck was performed from the aortic arch to the vertex. Images are reviewed in the axial, sagittal, and coronal planes. 3-D MIPS images are created and assessed. IV contrast was administered without complication. All measurements were calculated based on NASCET criteria. A dose lowering technique was utilized adhering to the principles of ALARA. CT DOSE: 1962.23 mGy.cm FINDINGS: Brain parenchyma: There is age-related involutional change noting moderate subcortical and periventricular microangiopathic disease. There is no hemorrhage, mass effect, or evidence of acute territorial ischemia by CT criteria. There is no evidence of enhancing mass lesion on the angiogram phase images. The ventricles, sulci, and cisterns are normal in configuration. Amos- white matter differentiation is preserved. No extra-axial fluid collection is seen. Thoracic aorta: There is mild atherosclerotic calcification of the thoracic aorta. Visualized portions of the thoracic aorta are normal in caliber. The aortic arch demonstrates standard 3-vessel anatomy. Right carotid arterial system: The right common carotid artery is widely patent. Atherosclerotic plaque is seen in the carotid bulb, and there is less than 50% luminal narrowing of the proximal right ICA seen on image #144. The remainder of the right internal carotid artery is widely patent, as is the right external carotid artery. Left carotid arterial system: The left common carotid artery is widely patent, as are the left internal and external carotid arteries. Vertebral arteries: The vertebral arteries are widely patent bilaterally noting left-sided dominance. Subclavian arteries: The subclavian arteries are patent bilaterally. There is plaque seen in the left subclavian artery below the thoracic outlet. Intracranial vasculature: There is atherosclerotic calcification of the cavernous carotid and vertebral arteries. The internal carotid arteries are patent at the skull base, as are the anterior and middle cerebral arteries bilaterally. The vertebrobasilar system and posterior cerebral arteries are widely patent. The lower vertebral artery is dominant. There is a 1.3 x 1.1 x 1.5 cm aneurysm of the supraclinoid right internal carotid artery extending into the sella. This is best seen on axial image #105. No additional aneurysm is seen throughout the intracranial circulation. There are no foci of high-grade stenosis or focal occlusion seen throughout The intracranial circulation. Jugular veins: Patent bilaterally. Dural sinuses: Patent. Lung apices: Partially visualized upper lobe lung parenchyma appears clear. Soft tissues: The visualized pharyngeal soft tissues are normal in appearance noting angiographic phase technique. The oropharyngeal airway appears widely patent. The thyroid gland is atrophic. The salivary glands are normal in appearance. No cervical lymphadenopathy is seen. Skeletal structures: The skeletal structures are osteopenic. The calvarium appears intact. The cervical spine is maintained noting mild spondylosis. No lytic or blastic lesion is seen. Orbits: The bony orbits are intact. Orbital contents are normal as visualized noting bilateral ocular lens implants. Sinuses and mastoids: The paranasal sinuses are clear. The mastoid air cells are well pneumatized. IMPRESSION: 1. There is no hemorrhage, mass effect, or evidence of acute territorial ischemia by CT criteria. 2. 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 There is no evidence of aneurysm rupture at this time. N eurosurgical/neurointerventional follow-up is advised. 3. Otherwise unremarkable CT angiogram of the brain. 4. Atherosclerotic plaque causes less than 50% luminal narrowing of the proximal right internal carotid artery. 5. Otherwise unremarkable CT angiogram of the neck. ACT 112: Positive. There are findings on this exam that require communication between the performing entity and the patient following Patient Test Result Information Act ([place] Act 112) guidelines. Electronically signed by: Gurmeet Marin M.D. 08/29/2021 1:38 PM Head CTA 06/10/22 11:48 CT ANGIOGRAM OF THE BRAIN COMBO; CT ANGIOGRAM OF THE NECK CLINICAL HISTORY: Near syncope. Transient aphasia. Headache. COMPARISON STUDY: No priors. TECHNIQUE: Unenhanced axial CT scan of the brain is performed. Subsequently, following the IV administration of 120 of Optiray 320, CT angiogram of the head and neck was performed from the aortic arch to the vertex. Images are reviewed in the axial, sagittal, and coronal planes. 3-D MIPS images are created and assessed. IV contrast was administered without complication. All measurements were calculated based on NASCET criteria. A dose lowering technique was utilized adhering to the principles of ALARA. CT DOSE: 1962.23 mGy.cm FINDINGS: Brain parenchyma: There is age-related involutional change noting moderate subcortical and periventricular microangiopathic disease. There is no hemorrhage, mass effect, or evidence of acute territorial ischemia by CT criteria. There is no evidence of enhancing mass lesion on the angiogram phase images. The ventricles, sulci, and cisterns are normal in configuration. Amos- white matter differentiation is preserved. No extra-axial fluid collection is seen. Thoracic aorta: There is mild atherosclerotic calcification of the thoracic aorta. Visualized portions of the thoracic aorta are normal in caliber. The aortic arch demonstrates standard 3-vessel anatomy. Right carotid arterial system: The right common carotid artery is widely patent. Atherosclerotic plaque is seen in the carotid bulb, and there is less than 50% luminal narrowing of the proximal right ICA seen on image #144. The remainder of the right internal carotid artery is widely patent, as is the right external carotid artery. Left carotid arterial system: The left common carotid artery is widely patent, as are the left internal and external carotid arteries. Vertebral arteries: The vertebral arteries are widely patent bilaterally noting left-sided dominance. Subclavian arteries: The subclavian arteries are patent bilaterally. There is plaque seen in the left subclavian artery below the thoracic outlet. Intracranial vasculature: There is atherosclerotic calcification of the cavernous carotid and vertebral arteries. The internal carotid arteries are patent at the skull base, as are the anterior and middle cerebral arteries bilaterally. The vertebrobasilar system and posterior cerebral arteries are widely patent. The lower vertebral artery is dominant. There is a 1.3 x 1.1 x 1.5 cm aneurysm of the supraclinoid right internal carotid artery extending into the sella. This is best seen on axial image #105. No additional aneurysm is seen throughout the intracranial circulation. There are no foci of high-grade stenosis or focal occlusion seen throughout The intracranial circulation. Jugular veins: Patent bilaterally. Dural sinuses: Patent. Lung apices: Partially visualized upper lobe lung parenchyma appears clear. Soft tissues: The visualized pharyngeal soft tissues are normal in appearance noting angiographic phase technique. The oropharyngeal airway appears widely patent. The thyroid gland is atrophic. The salivary glands are normal in appearance. No cervical lymphadenopathy is seen. Skeletal structures: The skeletal structures are osteopenic. The calvarium appears intact. The cervical spine is maintained noting mild spondylosis. No lytic or blastic lesion is seen. Orbits: The bony orbits are intact. Orbital contents are normal as visualized noting bilateral ocular lens implants. Sinuses and mastoids: The paranasal sinuses are clear. The mastoid air cells are well pneumatized. IMPRESSION: 1. There is no hemorrhage, mass effect, or evidence of acute territorial ischemia by CT criteria. 2. 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 There is no evidence of aneurysm rupture at this time. Neurosurgical/neurointerventional follow-up is advised. 3. Otherwise unremarkable CT angiogram of the brain. 4. Atherosclerotic plaque causes less than 50% luminal narrowing of the proximal right internal carotid artery. 5. Otherwise unremarkable CT angiogram of the neck. ACT 112: Positive. There are findings on this exam that require communication between the performing entity and the patient following Patient Test Result Information Act ([place] Act 112) guidelines. Electronically signed by: Gurmeet Marin M.D. 08/29/2021 1:38 PM Brain MRI 08/29/21 16:47 MR brain wo con CLINICAL HISTORY: Patient reports stroke 3 weeks ago with new onset anesthesia, nausea and weakness this a.m.. COMPARISON STUDY: CT brain from 08/29/2021 TECHNIQUE: Multiplanar multisequence images of the Brain were performed without IV contrast. Diffusion weighted imaging and ADC mapping was also performed. FINDINGS: Extra-axial space: There is no evidence for a subdural hematoma, There are no extra-axial fluid collections. Ventricles and cisterns: The ventricles are mildly dilated bilaterally. There is no evidence for midline shift or mass effect. Parenchyma: There is no evidence for an acute hemorrhage or infarct. No acute diffusion abnormalities are noted on diffusion weighted imaging or ADC mapping. There is normal amos-white differentiation. There is mild cerebral cortical atrophy present. There is bright signal seen on FLAIR weighted sequences within the centrum semiovale and periventricular white matter characteristic of remote small vessel disease. The sulci and gyri appear normal without effacement. The midline structures are unremarkable. The posterior fossa structures appear normal. There is no evidence for mass lesion. Osseous structures: The paranasal sinuses are well aerated. The mastoid air cells are well aerated. Soft tissues: No focal soft tissue abnormalities are identified. IMPRESSION: 1. No acute intracranial abnormalities. 2. Evidence for mild cerebral cortical atrophy and remote small vessel disease. ACT 112: Negative or not required by law. Electronically signed by: Raleigh Bello M.D. 08/29/2021 6:26 PM
--- NOTE | 2021-08-29 15:51 | Surgery Consultation ---
Date of Consultation August 29, 2021 Assessment & Plan (1) Splenic infarct: (2) Abdominal pain: 81-year-old female with sudden onset of left upper quadrant epigastric pain with near syncope. CT scan of the abdomen and pelvis showing possible splenic infarct however unknown if this is a chronic or acute finding. Per patient she has had 4-month history of upper epigastric/LUQ abdominal pain with associated nausea. Pain is worse after eating ice cream. She has history of a large hiatal hernia and has had a history of ulcers found on upper endoscopy. No history of prior gallbladder work-up or gallbladder issues. Abdominal exam with tenderness in the epigastric and mild tenderness in the left upper quadrant and right upper quadrant. No peritoneal signs or rigidity on exam. Plan: No acute surgical intervention required for the splenic infarct. As for the patient's upper abdominal pain uncertain if this is secondary to the splenic infarct or another underlying etiology potentially her large hiatal hernia, gastric ulcer or, gallbladder issues. There is no acute findings on examination that requires surgical intervention. Would recommend pain management for the splenic infarct and continued anticoagulation. She may require further GI evaluation and further work-up for her gallbladder as potential etiologies of her chronic upper abdominal pain with nausea. Continue current medical management Seen and agree Discussed with Dr. Riggs who agrees with above. History of Present Illness Reason for Consultation: Splenic infarct LUQ abdominal pain Requesting Physician: Lisa Medrano PA-C Attending Physician: Dr. Andrew History of Present Illness Rosalba is 81 y/o F with PMH CVA, HTN, HLD intolerant to statins, atrial fibrillation anticoagulated on Eliquis, migraine, hypothyroidism presented to ER with complaint of abdominal pain. Patient is from out of town and is visiting her family. States she had sudden onset of epigastric and left upper sided abdominal pain with associated nausea. Daughter states that she was very pale and then they brought her to the emergency department. Rosalba states that she has been having chronic abdominal pain for at least 4 months. Mostly in the epigastric region describes pain as sharp and stabbing in nature. Worse with ice cream however most of the time she has pain with eating. Has a history of hiatal hernia. Possibly had an upper endoscopy within the last 6 months. She recently had a stroke and was placed on Eliquis for atrial fibrillation. She denies of any history of prior gallbladder problems or gallbladder imaging. She denies of any fevers, chills, changes in her bowel habits, diarrhea, constipation, bloating, difficulty urinating. Allergies Allergy/AdvReac Type Severity Reaction Status Date / Time amoxicillin AdvReac Migraine Unverified 08/29/21 12:50 atorvastatin [From Lipitor] AdvReac Muscle Pain Unverified 08/29/21 12:50 levofloxacin [From Levaquin] AdvReac Migraine Unverified 08/29/21 12:50 loratadine [From Claritin-D] AdvReac Migraine Unverified 08/29/21 12:50 losartan [From Cozaar] AdvReac Migraine Unverified 08/29/21 12:50 pseudoephedrine AdvReac Migraine Unverified 08/29/21 12:50 [From Claritin-D] Home Medications Medication Instructions Recorded Confirmed Type apixaban 5 mg tablet (Eliquis) 5 mg PO BID 08/29/21 08/29/21 History atogepant 60 mg tablet (Qulipta) 60 mg PO QAM 08/29/21 08/29/21 History azithromycin 250 mg tablet 250 mg PO DIRECTED 08/29/21 08/29/21 History divalproex 500 mg tablet,extended 500 mg PO HS 08/29/21 08/29/21 History release 24 hr docusate sodium 100 mg capsule 100 mg PO BID 08/29/21 08/29/21 History levothyroxine 75 mcg tablet 75 mcg PO QAM 08/29/21 08/29/21 History metoprolol succinate 50 mg 25 mg PO BID 08/29/21 08/29/21 History tablet,extended release 24 hr ondansetron HCl 4 mg tablet 4 mg PO Q4H 08/29/21 08/29/21 History pantoprazole 40 mg tablet,delayed 40 mg PO BID 08/29/21 08/29/21 History release rizatriptan 10 mg tablet 0 mg PO .COMPLEX 08/29/21 08/29/21 History Patient History Medical History (Updated 08/29/21 @ 16:41 by Yeni Delgado PA-C) Abdominal wall hernia Anticoagulant long-term use Carotid aneurysm, right Postoperative abdominal hernia Stroke Surgical History (Updated 08/29/21 @ 16:41 by Yeni Delgado PA-C) H/O: hysterectomy Social History Smoking Status: Former smoker Hx Alcohol Use: No Hx Substance Use: No Preferred Language: Bengali Beliefs That Will Affect Care: None Current Living Situation: Alone Current Living Situation Comment: lives in single story apartment alone without steps Feels Safe at Home: Yes Safety Concerns: Feels Safe At This Time Assistive Devices: Denture - Upper, Denture - Lower and Glasses Physical Exam Constitutional: WD/WN, vitals as above + obese; no acute distress and not ill appearing Neck: normal visual inspection and trachea midline Respiratory: normal respiratory effort, lungs clear to auscultation Cardiovascular: RRR, no murmur, no edema Gastrointestinal (Abdomen): Inspection/Auscultation: abdomen normal to inspection and normal bowel sounds; abdomen not distended Percussion/Palpation: + abdomen tender (epigastrium and LUQ) and abdomen soft; no guarding, abdomen not rigid and abdomen not firm Skin: no rashes, warm and dry no jaundice Psychiatric: A+Ox3, euthymic affect Results & Data ([facility]) Vital Signs (Past 12 Hours) Vital Signs Temp Pulse Pulse Resp BP BP Pulse Ox 08/29/21 15:00 47 L 18 173/99 H 99 08/29/21 14:18 49 L 17 166/83 H 100 08/29/21 13:06 51 L 18 98 08/29/21 11:59 58 L 19 96 08/29/21 11:29 54 L 19 169/87 H 97 08/29/21 11:22 36.7 C 54 L 19 169/87 H 97 Laboratory Results 08/29/21 08/29/21 08/29/21 Range/Units 11:55 11:35 11:30 WBC (4.8-10.8) K/uL RBC (4.2-5.4) M/uL Hgb (12.0-16.0) g/dL Hct (37-47) % MCV (80-100) fL MCH (25-34) pg MCHC (32-36) g/dL RDW Std Deviation (36.4-46.3) fL RDW Coeff of Mary (11.5-14.5) % Plt Count (130-400) K/uL MPV (7.4-10.4) fL Immature Gran % (Auto) % Neut % (Auto) % Lymph % (Auto) % [place] % (Auto) % Eos % (Auto) % Baso % (Auto) % Neut # (Auto) (1.4-6.5) K/uL Lymph # (Auto) (1.2-3.4) K/uL [place] # (Auto) (0.11-0.59) K/uL Eos # (Auto) (0-0.5) K/uL Baso # (Auto) (0-0.2) K/uL Immature Gran # (Auto) (0.00-0.02) K/uL Sodium (136-145) mmol/L Potassium (3.5-5.1) mmol/L Chloride (98-107) mmol/L Carbon Dioxide (21-32) mmol/L Anion Gap (3-11) BUN (6-23) mg/dl Creatinine (0.6-1.2) mg/dl Est Cr Clr Drug Dosing ml/min Est GFR ( Amer) ml/min Est GFR (Non-Af Amer) ml/min BUN/Creatinine Ratio (10-20) Glucose (70-99(Fasting)) mg/dl Calcium (8.5-10.1) mg/dl Total Bilirubin (0.2-1.0) mg/dl AST (13-39) U/L ALT (7-52) U/L Alkaline Phosphatase (34-104) U/L Troponin I High Sens (0-14) pg/ml Total Protein (6.0-8.3) gm/dl Albumin (3.4-5.0) gm/dl Globulin (2.5-4.0) gm/dl Albumin/Globulin Ratio (0.9-2) Lipase (11-82) U/L Urine Color Yellow Urine Appearance Clear (Clear) Urine pH 7.0 (4.5-7.5) Ur Specific [place] 1.014 (1.000-1.030) Urine Protein Negative (Negative) Urine Glucose (UA) Negative (Negative) Urine Ketones Trace H (Negative) Urine Blood Negative (Negative) Urine Nitrite Negative (Negative) Urine Bilirubin Negative (Negative) Urine Urobilinogen Negative (Negative) Ur Leukocyte Esterase Negative (Negative) Valproic Acid 67 (50-100) mcg/ml SARS-CoV-2, RNA, NAAT NEGATIVE (NEGATIVE) 08/29/21 08/29/21 Range/Units 11:30 11:30 WBC 7.40 (4.8-10.8) K/uL RBC 4.70 (4.2-5.4) M/uL Hgb 13.3 (12.0-16.0) g/dL Hct 42.7 (37-47) % MCV 90.9 (80-100) fL MCH 28.3 (25-34) pg MCHC 31.1 L (32-36) g/dL RDW Std Deviation 48.1 H (36.4-46.3) fL RDW Coeff of Mary 14.5 (11.5-14.5) % Plt Count 200 (130-400) K/uL MPV 10.9 H (7.4-10.4) fL Immature Gran % (Auto) 0.5 % Neut % (Auto) 77.6 % Lymph % (Auto) 13.6 % [place] % (Auto) 5.0 % Eos % (Auto) 3.0 % Baso % (Auto) 0.3 % Neut # (Auto) 5.74 (1.4-6.5) K/uL Lymph # (Auto) 1.01 L (1.2-3.4) K/uL [place] # (Auto) 0.37 (0.11-0.59) K/uL Eos # (Auto) 0.22 (0-0.5) K/uL Baso # (Auto) 0.02 (0-0.2) K/uL Immature Gran # (Auto) 0.04 H (0.00-0.02) K/uL Sodium 142 (136-145) mmol/L Potassium 4.0 (3.5-5.1) mmol/L Chloride 107 (98-107) mmol/L Carbon Dioxide 28 (21-32) mmol/L Anion Gap 7 (3-11) BUN 21 (6-23) mg/dl Creatinine 1.10 (0.6-1.2) mg/dl Est Cr Clr Drug Dosing 37.4 ml/min Est GFR ( Amer) 54.5 ml/min Est GFR (Non-Af Amer) 47.0 ml/min BUN/Creatinine Ratio 19.1 (10-20) Glucose 139 H (70-99(Fasting)) mg/dl Calcium 8.5 (8.5-10.1) mg/dl Total Bilirubin 0.6 (0.2-1.0) mg/dl AST 10 L (13-39) U/L ALT 6 L (7-52) U/L Alkaline Phosphatase 65 (34-104) U/L Troponin I High Sens 7.9 (0-14) pg/ml Total Protein 6.2 (6.0-8.3) gm/dl Albumin 3.5 (3.4-5.0) gm/dl Globulin 2.7 (2.5-4.0) gm/dl Albumin/Globulin Ratio 1.3 (0.9-2) Lipase 8 L (11-82) U/L Urine Color Urine Appearance (Clear) Urine pH (4.5-7.5) Ur Specific [place] (1.000-1.030) Urine Protein (Negative) Urine Glucose (UA) (Negative) Urine Ketones (Negative) Urine Blood (Negative) Urine Nitrite (Negative) Urine Bilirubin (Negative) Urine Urobilinogen (Negative) Ur Leukocyte Esterase (Negative) Valproic Acid (50-100) mcg/ml SARS-CoV-2, RNA, NAAT (NEGATIVE) Diagnostic Findings CT abd pelvis IV con only CLINICAL HISTORY: lower abd pain, near syncope TECHNIQUE: Helical axial images of the abdomen and pelvis were obtained and displayed. Automated dose lowering techniques and/or adjustment according to patient size were utilized for this exam. This exam was performed with intravenous contrast. COMPARISON: None available at the time of this dictation. FINDINGS: Lower chest: No acute abnormality Liver: Unremarkable. No focal lesions are seen. Gallbladder and biliary tree: No calcified gallstones. Normal caliber wall. No intra- or extrahepatic biliary ductal dilation. Pancreas: Unremarkable, no focal lesions. Spleen: Wedge-shaped hypoenhancing region in the spleen is noted. Adrenals: Unremarkable. Kidneys and ureters: Multiple renal cysts are seen. Bladder: Limited evaluation due to underdistention. Reproductive organs: Unremarkable. Bowel: Diverticulosis is seen without evidence of diverticulitis. Patient is status post appendectomy. There is a moderate to large hiatal hernia. A duodenal diverticulum is seen. Lymph nodes Retroperitoneal: Unremarkable. Mesenteric: Unremarkable. Pelvic: Unremarkable. Peritoneum: Normal. Vessels: Atherosclerotic calcifications are seen. There is a 20 mm infrarenal aortic aneurysm. Abdominal wall: Unremarkable. Bones: Unremarkable. IMPRESSION: 1. 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 Correlation with prior imaging, if available, is recommended to establish chronicity, however acute infarct may explain patient's abdominal pain. 2. Moderate to large hiatal hernia. Additional findings as above.
[2021-08-29] MEDS ORDERED: ALUMINUM/MAGNESIUM SUSP 30 ML UDC PO PRN (16:47)
[2021-08-29] MEDS ORDERED: POLYETHYLENE (MIRALAX) 17 GM PACK PO PRN (16:47)
[2021-08-29] MEDS ORDERED: PHARMACIST DISCHARGE MED REC CONSULT PRN (16:47)
[2021-08-29] MEDS ORDERED: ONDANSETRON INJ 2 MG/ML 2 ML VIAL IV PRN (16:47)
--- NOTE | 2021-08-29 18:28 | Magnetic Resonance Report ---
MR brain wo con CLINICAL HISTORY: Patient reports stroke 3 weeks ago with new onset anesthesia, nausea and weakness this a.m.. COMPARISON STUDY: CT brain from 08/29/2021 TECHNIQUE: Multiplanar multisequence images of the Brain were performed without IV contrast. Diffusi on weighted imaging and ADC mapping was also performed. FINDINGS: Extra-axial space: There is no evidence for a subdural hematoma, There are no extra-axial fluid donnell ections. Ventricles and cisterns: The ventricles are mildly dilated bilaterally. There is no evidence for mid line shift or mass effect. Parenchyma: There is no evidence for an acute hemorrhage or infarct. No acute diffusion abnormalities are noted on diffusion weighted imaging or ADC mapping. There is normal soto-white differentiation. There is mild cerebral cortical atrophy present. There is bright signal seen on FLAIR weighted sequen [place] within the centrum semiovale and periventricular white matter characteristic of remote small vess el disease. The sulci and gyri appear normal without effacement. The midline structures are unremarka ble. The posterior fossa structures appear normal. There is no evidence for mass lesion. Osseous structures: The paranasal sinuses are well aerated. The mastoid air cells are well aerated. Soft tissues: No focal soft tissue abnormalities are identified. IMPRESSION: 1. No acute intracranial abnormalities. 2. Evidence for mild cerebral cortical atrophy and remote small vessel disease. ACT 112: Negative or not required by law. Electronically signed by: Raleigh Bello M.D. 08/29/2021 6:26 PM
[2021-08-29] MEDS: APIXABAN 5 MG TABLET PO SCH (20:12)
[2021-08-29] MEDS: DIVALPROEX EXTENDED RELEASE 500 MG TAB PO SCH (20:13)
[2021-08-29] MEDS: DOCUSATE SODIUM 100 MG CAP PO SCH (20:13)
[2021-08-29] MEDS ORDERED: oxyCODONE HCL IR 5 MG TAB (IMMEDIATE RELEASE) PO PRN (20:14)
[2021-08-29] MEDS: PANTOprazole 40 MG TAB PO SCH (20:14)
[2021-08-29] MEDS: ACETAMINOPHEN 325 MG TAB PO PRN (20:23)
[2021-08-29] MEDS ORDERED: METOPROLOL SUCC 25MG EXT REL TAB PO SCH (21:00)
[2021-08-30 02:10] LABS: Basophils # (auto) 0.02 K/uL (0-0.2); Basophils % (auto) 0.2 %; Eosinophils # (auto) 0.23 K/uL (0-0.5); Eosinophils % (auto) 2.9 %; Hematocrit (blood only) 40.3 % (37-47); Hemoglobin 12.6 g/dL (12.0-16.0); Immature Granulocytes # (auto) 0.05 K/uL (0.00-0.02); Immature Granulocytes % (auto) 0.6 %; Lymphocytes % (auto) 18.6 %; Mean Corpuscular Hemoglobin 28.2 pg (25-34); Mean Corpuscular Hgb Conc 31.3 g/dL (32-36); Mean Corpuscular Volume 90.2 fL (80-100); Mean Platelet Volume 10.8 fL (7.4-10.4); Monocytes % (auto) 8.7 %; Neutrophils # (auto) 5.57 K/uL (1.4-6.5); Platelet Count 193 K/uL (130-400); RDW Coefficient of Variation 14.5 % (11.5-14.5); RDW Standard Deviation 47.3 fL (36.4-46.3); Red Blood Count 4.47 M/uL (4.2-5.4); White Blood Count 8.07 K/uL (4.8-10.8)
[2021-08-30 02:37] LABS: Calcium 8.3 mg/dl (8.5-10.1); Chol HDL Ratio 5.4 (0-5); Creatinine Clr Calc Pharmacy 33.4 ml/min; Est GFR (African American) 49.6 ml/min; Est GFR (Non-African American) 42.8 ml/min; Potassium 3.6 mmol/L (3.5-5.1)
[2021-08-30] MEDS ORDERED: MoRPHine SULFATE 4 MG/ML 1 ML CARP\\VIAL IV STA (04:11)
[2021-08-30] MEDS: LEVOTHYROXINE SODIUM 75 MCG TABLET PO SCH (05:45)
--- NOTE | 2021-08-30 06:26 | Electrocardiogram Report ---
Test Reason : Blood Pressure : / mmHG Vent. Rate : 056 BPM Atrial Rate : 056 BPM P-R Int : 164 ms QRS Dur : 082 ms QT Int : 408 ms P-R-T Axes : 061 -45 -40 degrees QTc Int : 393 ms Sinus bradycardia Left axis deviation Low voltage QRS Abnormal ECG No previous ECGs available Confirmed by Rambo Phillips ([id number]) on 08/30/2021 6:26:14 AM Referred By: ED Confirmed By:Rambo Phillips
[2021-08-30 08:00] LABS: Estimated Average Glucose 103 mg/dl; Hemoglobin A1C 5.2 % (4.5-5.6)
[2021-08-30] MEDS: APIXABAN 5 MG TABLET PO SCH ×2 (08:48→20:28)
[2021-08-30] MEDS: PANTOprazole 40 MG TAB PO SCH ×2 (08:48→20:29)
[2021-08-30] MEDS: DOCUSATE SODIUM 100 MG CAP PO SCH ×2 (08:51→20:29)
[2021-08-30] MEDS: ACETAMINOPHEN 325 MG TAB PO PRN (08:55)
[2021-08-30] MEDS ORDERED: BUTALBITAL/ACETAMIN/CAFFEINE TAB PO STA (10:00)
--- NOTE | 2021-08-30 10:50 | Electrocardiogram Report ---
Test Reason : Blood Pressure : / mmHG Vent. Rate : 046 BPM Atrial Rate : 046 BPM P-R Int : 160 ms QRS Dur : 080 ms QT Int : 454 ms P-R-T Axes : 076 -28 -08 degrees QTc Int : 397 ms Sinus bradycardia Nonspecific ST and T wave abnormality Abnormal ECG When compared with ECG of 29-AUG-2021 15:24, (unconfirmed) T wave inversion less evident in Anterolateral leads Confirmed by Stevenson Mancilla ([id number]) on 08/30/2021 10:50:46 AM Referred By: REFERRED SELF Confirmed By:Gómez Mancilla
--- NOTE | 2021-08-30 11:11 | Surgery Progress Note ---
Date of Service August 30, 2021 Assessment & Plan (1) Splenic infarct: Plan: -continue conservative measures -no surgical issues Admission and Anticipated Discharge Date Admission Date: August 29, 2021 Subjective -abdominal pain a little better -some nausea Review of Systems Constitutional: no fever and no chills Eyes: no problem reported Ear, Nose, Mouth, Throat: no problem reported Respiratory: no cough and no dyspnea Cardiovascular: no chest pain Gastrointestinal: + abdominal pain and + nausea; no vomiting Genitourinary: no dysuria Musculoskeletal: no back pain Neurologic: no localized weakness and no generalized weakness Physical Exam Constitutional: well developed and well nourished Eyes: PERRL, conjunctivae normal, anicteric sclerae ENMT: external ear and nose normal, oropharynx normal Neck: trachea midline Respiratory: normal respiratory effort, lungs clear to auscultation Cardiovascular: RRR, no murmur, no edema Gastrointestinal (Abdomen): Inspection/Auscultation: abdomen normal to inspection; abdomen not distended Percussion/Palpation: + abdomen tender and abdomen soft Results & Data ([facility]) Vital Signs (Past 12 Hours) Vital Signs Temp Pulse Pulse Resp BP Pulse Ox 08/30/21 10:50 36.3 C L 46 L 18 142/84 H 95 08/30/21 07:50 45 L 08/30/21 06:27 36.6 C 46 L 18 126/81 94 08/30/21 03:48 36.4 C L 47 L 16 129/83 95 08/29/21 23:22 48 L
--- NOTE | 2021-08-30 11:18 | Hospitalist Progress Note ---
Date of Service August 30, 2021 Assessment & Plan (1) LUQ abdominal pain: (2) Splenic infarct: (3) Near syncope: (4) Sinus bradycardia: (5) Paroxysmal atrial fibrillation: (6) HTN (hypertension): (7) Migraine: (8) Hypothyroidism: (9) Hiatal hernia: (10) Carotid aneurysm, right: Plan: Patient is 81 y/o F with PMH CVA, HTN, HLD intolerant to statins, atrial fibrillation anticoagulated on Eliquis, migraine, hypothyroidism presented to ER with complaint of abdominal pain today to epigastric, LUQ with nausea In ER afebrile, vitals stable. No leukocytosis. Unremarkable LFTs, lipase CT ABD/PELVIS: 1. 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 Correlation with prior imaging, if available, is recommended to establish chronicity, however acute infarct may explain patient's abdominal pain. 2. Moderate to large hiatal hernia. LUQ pain- ongoing for 4 months with no improvement. - CT A/P shows splenic infarct- unknown chronicity- seen by surgery and recommended conservative measures, no intervention- recommended GI eval- will consult GI - Continue protonix bid as she has large hiatal hernia and PUD is a possibility- GI to evaluate further Splenic infarct- no intervention per surgery. continue home eliquis Near syncope- stroke w/u negative, no focal deficits- suspect due to bradycardia vs vasovagal. HR in mid 40s- will continue to hold BB- if continues to be bradycardic despite washout of BB, will consult cardio. Check for lyme. orthostatic vitals, continue tele. F/u on echo In ER no focal neuro deficits MRI brain and CT head with no acute finding CTA Head and neck: 1. There is no hemorrhage, mass effect, or evidence of acute territorial ischemia by CT criteria. 2. 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 There is no evidence of aneurysm rupture at this time. Neurosurgical/neurointerventional follow-up is advised. 3. Otherwise unremarkable CT angiogram of the brain. 4. Atherosclerotic plaque causes less than 50% luminal narrowing of the proximal right internal carotid artery. 5. Otherwise unremarkable CT angiogram of the neck. Sinus bradycardia- HR in mid 40s since admission, asymptomatic- home BB on hold, hold all AV heather albert. If no improvement, cardio eval. Paroxysmal Afib- currently in sinus rhythm. Anticoagulated on eliquis. - Patient reports she was diagnosed with Afib during CVA admission in 07/2021 and was noted to have bradycardia down to 30's and toprol was reduced from 50mg BID to 25mg BID- will dc completely for now Carotid aneurysm, right- seen in CTA- Patient aware- states found in 2012 and was evaluated by neurosurgery in [facility]- recommended to continue to follow up. History of CVA 07/2021- was started on Eliquis and her aspirin was discontinued- continue eliquis, intoleratant to statin Migraine- complains of bad headache, states she thinks caffeine withdrawal- recommended coffee intake, will give fioricet x1. continue AGILE TESTER divalproex, Qulipta. Tylenol prn Hypothyroidism: TSH normal. Continue levothyroxine DVT Prophylaxis- fully anticoagulated on Eliquis Dispo- Medsurg tele- continue tele and monitor sierra- needs further management of abd pain Admission and Anticipated Discharge Date Admission Date: August 29, 2021 Subjective Continues with headache and LUQ pain. States LUQ pain ongoing for 4 months with no improvement or worsening. Also has migraine and bad headache today- states she drinks coffee regularly at home but was not given this morning. Has some nausea but no vomiting. Did not feel like eating today because of nausea. Denies any lightheadedness, dizziness, chest pain, shortness of breath. Physical Exam Physical Exam: General: Sitting comfortably in bed, not in distress, on room air HEENT: EOMI, JONATHAN, MMM Chest: Clear breath sounds bilaterally, no wheezes or crackles CVS: Bradycardic, regular, no murmur Abdomen: Soft, LUQ tenderness, not distended, normal bowel sounds Neuro: Awake, alert, oriented, conversing well, non focal Extremities: No cyanosis, clubbing or edema Results & Data Results & Data ([facility]) Vital Signs (Past 12 Hours) Vital Signs Temp Pulse Pulse Resp BP Pulse Ox 08/30/21 10:50 36.3 C L 46 L 18 142/84 H 95 08/30/21 07:50 45 L 08/30/21 06:27 36.6 C 46 L 18 126/81 94 08/30/21 03:48 36.4 C L 47 L 16 129/83 95 08/29/21 23:22 48 L Laboratory Results Short CBC 08/29/21 08/30/21 Range/Units 11:30 01:52 WBC 7.40 8.07 (4.8-10.8) K/uL Hgb 13.3 12.6 (12.0-16.0) g/dL Hct 42.7 40.3 (37-47) % Plt Count 200 193 (130-400) K/uL BMP 08/29/21 08/30/21 11:30 01:52 Sodium 142 142 Potassium 4.0 3.6 Chloride 107 107 Carbon Dioxide 28 30 BUN 21 25 H Creatinine 1.10 1.19 Glucose 139 H 91 Calcium 8.5 8.3 L Liver Function 08/29/21 Range/Units 11:30 Total Bilirubin 0.6 (0.2-1.0) mg/dl AST 10 L (13-39) U/L ALT 6 L (7-52) U/L Alkaline Phosphatase 65 (34-104) U/L Albumin 3.5 (3.4-5.0) gm/dl Urine 08/29/21 Range/Units 11:35 Urine Color Yellow Urine Appearance Clear (Clear) Urine pH 7.0 (4.5-7.5) Ur Specific [place] 1.014 (1.000-1.030) Urine Protein Negative (Negative) Urine Glucose (UA) Negative (Negative) Medications Administered Current Inpatient Medications Acetaminophen (Acetaminophen 325 Mg Tab) 650 mg PO Q4H PRN PRN Reason: Pain or Fever Stop: 09/28/21 16:46 Last Admin: 08/30/21 08:55 Dose: 650 mg Documented by: Al Hydrox/Mg Hydrox/Simethicone (Aluminum/Magnesium Susp 30 Ml Udc) 15 ml PO Q4H PRN PRN Reason: Dyspepsia Stop: 09/28/21 16:46 Apixaban (Apixaban 5 Mg Tablet) 5 mg PO BID SHERRELL Stop: 09/28/21 20:59 Last Admin: 08/30/21 08:48 Dose: 5 mg Documented by: Divalproex Sodium (Divalproex Extended Release 500 Mg Tab) 500 mg PO HS SHERRELL Stop: 09/28/21 20:59 Last Admin: 08/29/21 20:13 Dose: 500 mg Documented by: Docusate Sodium (Docusate Sodium 100 Mg Cap) 100 mg PO BID [facility] Stop: 09/28/21 20:59 Last Admin: 08/30/21 08:51 Dose: 100 mg Documented by: Levothyroxine Sodium (Levothyroxine Sodium 75 Mcg Tablet) 75 mcg PO DAILYBB [facility] Stop: 09/29/21 06:29 Last Admin: 08/30/21 05:45 Dose: 75 mcg Documented by: Metoprolol Succinate (Metoprolol Succ 25mg Ext Rel Tab) 12.5 mg PO BID [facility] Stop: 09/28/21 20:59 Last Admin: 08/29/21 20:29 Dose: Not Given Documented by: Miscellaneous (Order Awaiting Action [Atogepant [Qulipta] 60 Mg Tablet]) 1 ea N/A QS [facility] Stop: 09/29/21 00:00 Last Admin: 08/30/21 08:49 Dose: Not Given Documented by: Miscellaneous Information (Pharmacist Discharge Med Rec Consult) 1 ea N/A UD PRN PRN Reason: Consult Stop: 09/28/21 16:46 Ondansetron HCl (Ondansetron Inj 2 Mg/Ml 2 Ml Vial) 4 mg IV Q6H PRN PRN Reason: Nausea Stop: 09/28/21 16:46 Last Admin: 08/30/21 08:52 Dose: 4 mg Documented by: Oxycodone HCl (Oxycodone Hcl Ir 5 Mg Tab (Immediate Release)) 5 mg PO Q6H PRN PRN Reason: Severe Pain Stop: 09/12/21 20:13 Last Admin: 08/30/21 03:21 Dose: 5 mg Documented by: Pantoprazole Sodium (Pantoprazole 40 Mg Tab) 40 mg PO BID [facility] Stop: 09/28/21 20:59 Last Admin: 08/30/21 08:48 Dose: 40 mg Documented by: Polyethylene Glycol (Polyethylene (Miralax) 17 Gm Pack) 17 gm PO DAILY PRN PRN Reason: Constipation Stop: 09/28/21 16:46
--- NOTE | 2021-08-30 12:00 | Consultation Report ---
DATE OF CONSULTATION: 08/30/2021 REASON FOR CONSULTATION: Possible transient ischemic attack. HISTORY OF PRESENT ILLNESS: The patient is an 81-year-old presumed right-handed female who was in [facility] several weeks ago for what seems like it was a right parietal occipital infarct, thought to be related to atrial fibrillation. The patient was started on anticoagulation with Eliquis. 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 She was brought back to the area to rehabilitate as her daughter lives here. Yesterday they were going to get ready to go out and the patient noted she had a hot flash, felt nauseated and then either laid down or fell down on her bed. Unclear if there was loss of consciousness. She was pale and upon coming to her speech was gibberish. This lasted about 10 minutes. Apparently, no other focal neurologic findings were noted. She has chronically had some left upper quadrant pain and nausea and vomiting. She has no prior history of syncope or seizure. There was no accompanying vertigo, double vision, slurred speech, unilateral weakness or numbness. CT of the head was noncontributory. MRI of the brain, I believe shows a subacute to chronic right parietooccipital infarction. CTA of the head and neck showed a 1.5 cm aneurysm of the right supraclinoid internal carotid artery, otherwise unremarkable CTA of the brain, atherosclerotic plaque causing less than 50% narrowing of the right internal carotid artery and an otherwise normal CTA of the neck. Her abdomen and pelvis CT showed a wedge-shaped splenic hypodensities consistent with splenic infarct and a moderate to large hiatal hernia. Her electrocardiogram on admission was abnormal sinus bradycardia, rate of 56, left axis deviation, low voltage QRS. Heart rate has ranged from a low of 44 to a high of 58. Of note, when the patient was hospitalized at [facility], she was noted to have bradycardia into the 30s and metoprolol was decreased in dose. The patient did have some abdominal pain yesterday. Hours later she had a mild headache, which was not atypical for her migraine. PAST MEDICAL HISTORY: As above. Abdominal wall hernia, atrial fibrillation, carotid aneurysm, hypertension, hypothyroidism, migraine, stroke. PAST SURGICAL HISTORY: Hysterectomy, appendectomy, benign lump on breast. FAMILY HISTORY: Heart disease, Alzheimer's, breast cancer. SOCIAL HISTORY: Former smoker, does not drink alcohol. MEDICATIONS: On admission were apixaban, Qulipta, azithromycin, Depakote, docusate, levothyroxine, metoprolol, Zofran, pantoprazole and Rizatriptan. ALLERGIES: AMOXICILLIN, ATORVASTATIN, LEVOFLOXACIN, LORATADINE, LOSARTAN, AND SUDAFED. PHYSICAL EXAMINATION: VITAL SIGNS: Current vitals, temperature 36.3, pulse 46, respiration 18, 142/84, 95% on room air. GENERAL: The patient is awake and alert. Speech and language are normal and her affect is appropriate. No carotid or vertebral bruits are noted. HEART: Is irregularly irregular. No murmurs, rubs or gallops. NEUROLOGIC: Pupils are postsurgical. Optic nerves are grossly normal. Motility is normal and there is no field cut. There is no visual extinction. There may be a mild flattening of the right nasolabial fold, but on the whole face is symmetric. Tongue is midline. Motor is 5/5, no drift. Normal rapid alternating movements. Symmetric reflexes, downgoing toes. [id number] and [id number] are normal. Sensation is intact to light touch. IMPRESSION: Episode of flush and nausea and pallor, speaking mild gibberish, speaks of hypoperfusion rather than focal vascular ischemia. PLAN: I agree with the plan as it is currently described including monitor for symptomatic bradycardia. Check for orthostasis. Possible vasovagal syncope. This patient has not had a new stroke, has atrial fibrillation and best treatment for stroke prevention includes a DOAC, which the pt is one. Recommend a goal LDL of 70 or less. Regarding her right supraclinoid ICA aneurysm 1.5 cm by report, the patient has declined intervention previously. I have no sense that this is related to her current presentation. We will sign off. Job ID: [id number] [facility]
[2021-08-30 12:30] LABS: Lyme Ab IgG w/WB Rflx Negative (Negative); Lyme Ab IgM w/WB Rflx Negative (Negative)
[2021-08-30] MEDS: D5W AND 1/2NSS 1,000 ML IV SCH (15:59)
[2021-08-30] MEDS: traMADol HCL 50 MG TABLET PO PRN ×2 (16:07→20:40)
[2021-08-30] MEDS: DIVALPROEX EXTENDED RELEASE 500 MG TAB PO SCH (20:28)
[2021-08-31] MEDS: D5W AND 1/2NSS 1,000 ML IV SCH (03:57)
[2021-08-31] MEDS: LEVOTHYROXINE SODIUM 75 MCG TABLET PO SCH (05:38)
[2021-08-31] MEDS ORDERED: ALUMINUM/MAGNESIUM SUSP 30 ML UDC PO PRN (07:36)
--- NOTE | 2021-08-31 07:43 | Gastrointestinal Consultation ---
Date of Consultation August 31, 2021 Assessment & Plan (1) LUQ abdominal pain: 81 yo female with multiple comorbidities including CVA and AF on Eloquis with 6+ months of upper abd pain which has been worked up where she lives (here visiting family) known to have a large hiatal hernia and history of ulcers. Feeling OK this AM. Hungry. Would allow her to eat and follow symptoms. Given recent workup by her primary GI physician and PCP, would not repeat diagnostics. Treat with BID PPI. can add BID H2RA (Pepcid). PRN use of Zofran. Suspec thte finding of splenic infarct is not acute. (2) Hiatal hernia: (3) Abdominal pain: (4) Splenic infarct: (5) Anticoagulant long-term use: (6) Atrial fibrillation: (7) CVA (cerebral vascular accident): History of Present Illness Reason for Consultation: abd pain Attending Physician: Luke Aceves MD History of Present Illness 81 yo female visiting family from out of town. She has multiple medical problems including CAD, AF, fairly recent CVA, on Eloquis and chronic abd pain that has been present for at least the last 6 months. She has a GI physician at home and has had a work up for her upper abd pain. 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 She thinks her recent EGD was just a few months ago. on PPI. On evaluation here she was found to have evidence of splenic infarct which is thought to be chronic and not acute. This morning she is resting comfortably. Her pain is minimal and she tells me not any worse than it has been for months. Not nauseated this AM. No vomiting. She is asking if she can have breakfast as she is hungry. Allergies Allergy/AdvReac Type Severity Reaction Status Date / Time amoxicillin AdvReac Migraine Unverified 08/29/21 12:50 atorvastatin [From Lipitor] AdvReac Muscle Pain Unverified 08/29/21 12:50 levofloxacin [From Levaquin] AdvReac Migraine Unverified 08/29/21 12:50 loratadine [From Claritin-D] AdvReac Migraine Unverified 08/29/21 12:50 losartan [From Cozaar] AdvReac Migraine Unverified 08/29/21 12:50 pseudoephedrine AdvReac Migraine Unverified 08/29/21 12:50 [From Nikki] Home Medications Medication Instructions Recorded Confirmed Type apixaban 5 mg tablet (Eliquis) 5 mg PO BID 08/29/21 08/29/21 History atogepant 60 mg tablet (Qulipta) 60 mg PO QAM 08/29/21 08/29/21 History azithromycin 250 mg tablet 250 mg PO DIRECTED 08/29/21 08/29/21 History divalproex 500 mg tablet,extended 500 mg PO HS 08/29/21 08/29/21 History release 24 hr docusate sodium 100 mg capsule 100 mg PO BID 08/29/21 08/29/21 History levothyroxine 75 mcg tablet 75 mcg PO QAM 08/29/21 08/29/21 History metoprolol succinate 50 mg 25 mg PO BID 08/29/21 08/29/21 History tablet,extended release 24 hr ondansetron HCl 4 mg tablet 4 mg PO Q4H 08/29/21 08/29/21 History pantoprazole 40 mg tablet,delayed 40 mg PO BID 08/29/21 08/29/21 History release rizatriptan 10 mg tablet 0 mg PO .COMPLEX 08/29/21 08/29/21 History Patient History Medical History Abdominal wall hernia Anticoagulant long-term use Atrial fibrillation Carotid aneurysm, right HTN (hypertension) Hypothyroidism Migraine Postoperative abdominal hernia Stroke Surgical History H/O: hysterectomy History of appendectomy History of lumpectomy of left breast pt reported benign Family History Father Heart disease Alzheimer disease Grandmother (Maternal) Breast cancer Social History Smoking Status: Former smoker Hx Alcohol Use: No Hx Substance Use: No Preferred Language: Maori Communication Ability: Effective Beliefs That Will Affect Care: None marital status: / Current Living Situation: Alone Current Living Situation Comment: lives in single story apartment alone without steps How many Children do You have: 4 Feels Safe at Home: Yes Safety Concerns: Feels Safe At This Time Assistive Devices: Cane, CPAP and Walker Assistive Devices Comment: CPAP is in [place]. Pt does not like to use Review of Systems Review of Systems: All systems reviewed & are unremarkable except as noted in HPI & below Physical Exam Constitutional: WD/WN, vitals as above Respiratory: normal respiratory effort, lungs clear to auscultation Cardiovascular: RRR, no murmur, no edema Extremities: + edema (Left hand and forearm with edema) Gastrointestinal (Abdomen): normal bowel sounds, soft, nontender, no hepatosplenomegaly Results & Data ([facility]) Vital Signs (Past 12 Hours) Vital Signs Temp Pulse Pulse Resp BP Pulse Ox 08/31/21 04:41 36.7 C 73 18 127/77 93 08/31/21 02:41 51 L 08/30/21 22:00 36.5 C 55 L 18 139/84 95
[2021-08-31] MEDS: APIXABAN 5 MG TABLET PO SCH ×2 (08:28→20:26)
[2021-08-31] MEDS: PANTOprazole 40 MG TAB PO SCH ×2 (08:28→20:27)
[2021-08-31] MEDS: DOCUSATE SODIUM 100 MG CAP PO SCH ×2 (08:28→20:27)
[2021-08-31] MEDS: [UNRECOGNIZED DRUG - REMARK] PO SCH (08:29)
[2021-08-31] MEDS: FAMOTIDINE 20 MG TAB PO SCH ×2 (08:33→20:31)
[2021-08-31 08:43] LABS: Basophils # (auto) 0.01 K/uL (0-0.2); Basophils % (auto) 0.2 %; Eosinophils # (auto) 0.23 K/uL (0-0.5); Eosinophils % (auto) 3.9 %; Hematocrit (blood only) 38.1 % (37-47); Hemoglobin 11.9 g/dL (12.0-16.0); Immature Granulocytes # (auto) 0.05 K/uL (0.00-0.02); Immature Granulocytes % (auto) 0.8 %; Lymphocytes # (auto) 1.12 K/uL (1.2-3.4); Lymphocytes % (auto) 18.8 %; Mean Corpuscular Hemoglobin 28.1 pg (25-34); Mean Corpuscular Hgb Conc 31.2 g/dL (32-36); Mean Corpuscular Volume 90.1 fL (80-100); Mean Platelet Volume 10.9 fL (7.4-10.4); Monocytes # (auto) 0.55 K/uL (0.11-0.59); Monocytes % (auto) 9.2 %; Neutrophils # (auto) 3.99 K/uL (1.4-6.5); Neutrophils % (auto) 67.1 %; Platelet Count 187 K/uL (130-400); RDW Coefficient of Variation 14.5 % (11.5-14.5); RDW Standard Deviation 47.5 fL (36.4-46.3); Red Blood Count 4.23 M/uL (4.2-5.4); White Blood Count 5.95 K/uL (4.8-10.8)
[2021-08-31 08:57] LABS: BUN Creatinine Ratio 27.5 (10-20); Calcium 8.5 mg/dl (8.5-10.1); Creatinine Clr Calc Pharmacy 44.1 ml/min; Est GFR (African American) 68.6 ml/min; Est GFR (Non-African American) 59.2 ml/min; Phosphorus 3.3 mg/dl (2.5-4.9); Potassium 3.6 mmol/L (3.5-5.1)
--- NOTE | 2021-08-31 09:05 | Surgery Progress Note ---
Date of Service August 31, 2021 Assessment & Plan (1) LUQ abdominal pain: Plan: -splenic infact without sigh of inefction -pain minimal -will sign off Admission and Anticipated Discharge Date Admission Date: August 29, 2021 Subjective -minimal pain -eating OK -appreciate GI input Review of Systems Constitutional: no fever and no chills Respiratory: no cough and no dyspnea Cardiovascular: no chest pain Gastrointestinal: + abdominal pain (mild); no nausea, no vomiting and no change in bowel habits Genitourinary: no dysuria Physical Exam Constitutional: WD/WN, vitals as above Respiratory: normal respiratory effort, lungs clear to auscultation Cardiovascular: RRR, no murmur, no edema Gastrointestinal (Abdomen): Inspection/Auscultation: abdomen normal to inspection; abdomen not distended Percussion/Palpation: + abdomen tender and abdomen soft; no guarding Musculoskeletal: Head/Neck/Chest: normocephalic and head atraumatic [facility] & Data ([facility]) Vital Signs (Past 12 Hours) Vital Signs Temp Pulse Pulse Resp BP Pulse Ox 08/31/21 08:11 36.4 C L 53 L 16 138/91 94 08/31/21 07:58 52 L 08/31/21 04:41 36.7 C 73 18 127/77 93 08/31/21 02:41 51 L 08/30/21 22:00 36.5 C 55 L 18 139/84 95
[2021-08-31] MEDS: traMADol HCL 50 MG TABLET PO PRN (10:34)
--- NOTE | 2021-08-31 12:09 | Cardiology Consultation ---
Date of Consultation August 31, 2021 Assessment & Plan (1) Paroxysmal atrial fibrillation: (2) Sinus bradycardia: (3) CVA (cerebral vascular accident): The patient is currently alert and oriented and in no acute distress. The patient's beta-albert was held on admission. At present I would continue to hold the metoprolol. She is anticoagulated with Eliquis. The echocardiogram shows no evidence of a PFO or other significant findings. At this point I would recommend no additional cardiac work-up. History of Present Illness Attending Physician: Luke Aceves MD History of Present Illness This is an 81-year-old female who recently relocated to live with family here in [place]. She is originally from [facility] where she has received most of her medical care. She is a very pleasant and alert 81-year-old female but not a good historian and most of the information is taken from the medical record. Recently she had a CVA which was felt to be secondary to paroxysmal atrial fibrillation. She has been chronically anticoagulated with Eliquis and is on 25 mg of metoprolol succinate twice daily for rhythm control. On the telemetry she is currently in a sinus bradycardia with heart rates in the 50s and has had no evidence of atrial fibrillation. No high-grade heart block. On admission the patient's beta-albert was held due to the sinus bradycardia in the 40s She presented to the emergency department with with nausea and abdominal discomfort. She had a presyncopal episode at home which was most likely related to the abdominal discomfort and a vasovagal event. During my exam she is sitting in a chair with no ongoing complaints. She has been seen by the GI service. An echocardiogram completed this admission shows no atrial septal defect or PFO. No significant valvular pathology and normal LV function. Allergies Allergy/AdvReac Type Severity Reaction Status Date / Time amoxicillin AdvReac Migraine Unverified 08/29/21 12:50 atorvastatin [From Lipitor] AdvReac Muscle Pain Unverified 08/29/21 12:50 levofloxacin [From Levaquin] AdvReac Migraine Unverified 08/29/21 12:50 loratadine [From Claritin-D] AdvReac Migraine Unverified 08/29/21 12:50 losartan [From Cozaar] AdvReac Migraine Unverified 08/29/21 12:50 pseudoephedrine AdvReac Migraine Unverified 08/29/21 12:50 [From Nikki] Home Medications Medication Instructions Recorded Confirmed Type apixaban 5 mg tablet (Eliquis) 5 mg PO BID 08/29/21 08/29/21 History atogepant 60 mg tablet (Qulipta) 60 mg PO QAM 08/29/21 08/29/21 History azithromycin 250 mg tablet 250 mg PO DIRECTED 08/29/21 08/29/21 History divalproex 500 mg tablet,extended 500 mg PO HS 08/29/21 08/29/21 History release 24 hr docusate sodium 100 mg capsule 100 mg PO BID 08/29/21 08/29/21 History levothyroxine 75 mcg tablet 75 mcg PO QAM 08/29/21 08/29/21 History metoprolol succinate 50 mg 25 mg PO BID 08/29/21 08/29/21 History tablet,extended release 24 hr ondansetron HCl 4 mg tablet 4 mg PO Q4H 08/29/21 08/29/21 History pantoprazole 40 mg tablet,delayed 40 mg PO BID 08/29/21 08/29/21 History release rizatriptan 10 mg tablet 0 mg PO .COMPLEX 08/29/21 08/29/21 History Patient History Medical History Abdominal wall hernia Anticoagulant long-term use Atrial fibrillation Carotid aneurysm, right HTN (hypertension) Hypothyroidism Migraine Postoperative abdominal hernia Stroke Surgical History H/O: hysterectomy History of appendectomy History of lumpectomy of left breast pt reported benign Family History Father Heart disease Alzheimer disease Grandmother (Maternal) Breast cancer Social History Smoking Status: Former smoker Hx Alcohol Use: No Hx Substance Use: No Preferred Language: Lithuanian Communication Ability: Effective Beliefs That Will Affect Care: None marital status: / Current Living Situation: Alone Current Living Situation Comment: lives in single story apartment alone without steps How many Children do You have: 4 Feels Safe at Home: Yes Safety Concerns: Feels Safe At This Time Assistive Devices: Cane, CPAP and Walker Assistive Devices Comment: CPAP is in [place]. Pt does not like to use Review of Systems Review of Systems: Review of Systems: See HPI for pertinent positives. All other 10 point review of systems are negative. Physical Exam Physical Exam: General: no acute distress and stated age Head: normocephalic, no masses, lesions, tenderness or abnormalities Eyes: conjunctiva are pink and non-injected, sclera clear Neck: supple, no adenopathy, no bruits, normal jugular venous pulse, no hepatojugular reflux Chest: normal shape and normal respiratory effort Lungs: clear to auscultation and percussion Cardiac Exam: - regular rate & rhythm, no murmurs gallops or rubs - normal S1, normal S2 Pulses: 2(+) throughout Abdomen: abdomen soft, non-tender, no abnormal masses and no hepatosplenomegaly Musculoskeletal: no gait disturbance, no joint inflammation, no deforming arthritis Extremities: no edema and no cyanosis Neuro: grossly normal exam Results & Data ([facility]) Vital Signs (Past 12 Hours) Vital Signs Temp Pulse Pulse Resp BP BP Pulse Ox 08/31/21 11:12 36.8 C 59 L 18 137/88 96 08/31/21 08:11 36.4 C L 53 L 16 138/91 94 08/31/21 07:58 52 L 08/31/21 04:41 36.7 C 73 18 127/77 93 08/31/21 02:41 51 L Laboratory Results Laboratory Results - last 24 hr 08/30/21 08/30/21 08/31/21 11:26 11:26 07:33 WBC 5.95 RBC 4.23 Hgb 11.9 L Hct 38.1 MCV 90.1 MCH 28.1 MCHC 31.2 L RDW Std Deviation 47.5 H RDW Coeff of Mary 14.5 Plt Count 187 MPV 10.9 H Immature Gran % (Auto) 0.8 Neut % (Auto) 67.1 Lymph % (Auto) 18.8 [place] % (Auto) 9.2 Eos % (Auto) 3.9 Baso % (Auto) 0.2 Neut # (Auto) 3.99 Lymph # (Auto) 1.12 L [place] # (Auto) 0.55 Eos # (Auto) 0.23 Baso # (Auto) 0.01 Immature Gran # (Auto) 0.05 H Sodium Potassium Chloride Carbon Dioxide Anion Gap BUN Creatinine Est Cr Clr Drug Dosing Est GFR ( Amer) Est GFR (Non-Af Amer) BUN/Creatinine Ratio Glucose Calcium Phosphorus Magnesium Vitamin B12 135 L Lyme Disease IgG Ab Negative Lyme Disease IgM Ab Negative 08/31/21 07:33 WBC RBC Hgb Hct MCV MCH MCHC RDW Std Deviation RDW Coeff of Mary Plt Count MPV Immature Gran % (Auto) Neut % (Auto) Lymph % (Auto) [place] % (Auto) Eos % (Auto) Baso % (Auto) Neut # (Auto) Lymph # (Auto) [place] # (Auto) Eos # (Auto) Baso # (Auto) Immature Gran # (Auto) Sodium 139 Potassium 3.6 Chloride 105 Carbon Dioxide 29 Anion Gap 5 BUN 25 H Creatinine 0.91 Est Cr Clr Drug Dosing 44.1 Est GFR ( Amer) 68.6 Est GFR (Non-Af Amer) 59.2 BUN/Creatinine Ratio 27.5 H Glucose 99 Calcium 8.5 Phosphorus 3.3 Magnesium 2.0 Vitamin B12 Lyme Disease IgG Ab Lyme Disease IgM Ab Medications Administered Current Inpatient Medications Acetaminophen (Acetaminophen 325 Mg Tab) 650 mg PO Q4H PRN PRN Reason: Pain or Fever Stop: 09/28/21 16:46 Last Admin: 08/30/21 08:55 Dose: 650 mg Documented by: Al Hydrox/Mg Hydrox/Simethicone (Aluminum/Magnesium Susp 30 Ml Udc) 15 ml PO Q4H PRN PRN Reason: Dyspepsia Stop: 09/28/21 16:46 Al Hydrox/Mg Hydrox/Simethicone (Aluminum/Magnesium Susp 30 Ml Udc) 15 ml PO TID PRN PRN Reason: Heartburn Stop: 09/30/21 07:35 Apixaban (Apixaban 5 Mg Tablet) 5 mg PO BID SHERRELL Stop: 09/28/21 20:59 Last Admin: 08/31/21 08:28 Dose: 5 mg Documented by: Cyanocobalamin (Cyanocobalamin 1000 Mcg/Ml Vial) 1,000 mcg IM QAM SHERRELL Stop: 10/04/21 08:59 Divalproex Sodium (Divalproex Extended Release 500 Mg Tab) 500 mg PO HS SHERRELL Stop: 09/28/21 20:59 Last Admin: 08/30/21 20:28 Dose: 500 mg Documented by: Docusate Sodium (Docusate Sodium 100 Mg Cap) 100 mg PO BID [facility] Stop: 09/28/21 20:59 Last Admin: 08/31/21 08:28 Dose: 100 mg Documented by: Famotidine (Famotidine 20 Mg Tab) 20 mg PO BID [facility] Stop: 09/30/21 08:59 Last Admin: 08/31/21 08:33 Dose: 20 mg Documented by: Dextrose/Sodium Chloride (D5w And 1/2nss) 1,000 mls @ 80 mls/hr IV .[id number] [facility] Stop: 08/31/21 15:29 Last Admin: 08/31/21 03:57 Dose: 80 mls/hr Documented by: Levothyroxine Sodium (Levothyroxine Sodium 75 Mcg Tablet) 75 mcg PO DAILYBB [facility] Stop: 09/29/21 06:29 Last Admin: 08/31/21 05:38 Dose: 75 mcg Documented by: Metoprolol Succinate (Metoprolol Succ 25mg Ext Rel Tab) 12.5 mg PO BID [facility] Stop: 09/28/21 20:59 Last Admin: 08/29/21 20:29 Dose: Not Given Documented by: Miscellaneous Information (Pharmacist Discharge Med Rec Consult) 1 ea N/A UD PRN PRN Reason: Consult Stop: 09/28/21 16:46 Atogepant [Qulipta]: Non-Form Pt's Own Med 1 ea PO QAM [facility] Stop: 09/30/21 08:59 Last Admin: 08/31/21 08:29 Dose: 60 mg Documented by: Ondansetron HCl (Ondansetron Inj 2 Mg/Ml 2 Ml Vial) 4 mg IV Q6H PRN PRN Reason: Nausea Stop: 09/28/21 16:46 Last Admin: 08/30/21 08:52 Dose: 4 mg Documented by: Oxycodone HCl (Oxycodone Hcl Ir 5 Mg Tab (Immediate Release)) 5 mg PO Q6H PRN PRN Reason: Severe Pain Stop: 09/12/21 20:13 Last Admin: 08/30/21 03:21 Dose: 5 mg Documented by: Pantoprazole Sodium (Pantoprazole 40 Mg Tab) 40 mg PO BID [facility] Stop: 09/28/21 20:59 Last Admin: 08/31/21 08:28 Dose: 40 mg Documented by: Polyethylene Glycol (Polyethylene (Miralax) 17 Gm Pack) 17 gm PO DAILY PRN PRN Reason: Constipation Stop: 09/28/21 16:46 Tramadol HCl (Tramadol Hcl 50 Mg Tablet) 50 mg PO Q6 PRN PRN Reason: mod pain Stop: 09/29/21 15:11 Last Admin: 08/31/21 10:34 Dose: 50 mg Documented by:
--- NOTE | 2021-08-31 13:07 | Hospitalist Progress Note ---
Date of Service August 31, 2021 Assessment & Plan (1) LUQ abdominal pain: (2) Splenic infarct: (3) Near syncope: (4) Sinus bradycardia: (5) Paroxysmal atrial fibrillation: (6) HTN (hypertension): (7) Migraine: (8) Hypothyroidism: (9) Hiatal hernia: (10) Carotid aneurysm, right: Plan: Patient is 81 y/o F with PMH CVA, HTN, HLD intolerant to statins, atrial fibrillation anticoagulated on Eliquis, migraine, hypothyroidism presented to ER with complaint of abdominal pain today to epigastric, LUQ with nausea In ER afebrile, vitals stable. No leukocytosis. Unremarkable LFTs, lipase CT ABD/PELVIS: 1. 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 Correlation with prior imaging, if available, is recommended to establish chronicity, however acute infarct may explain patient's abdominal pain. 2. Moderate to large hiatal hernia. LUQ pain- ongoing for 4 months with no improvement. - CT A/P shows splenic infarct- unknown chronicity, likely chronic - seen by surgery and recommended conservative measures, no intervention - Seen by GI- did not recommend further work up as this point as she recently had OP EGD couple months ago- recommended addition of pepcid to protonix recommended GI eval- seen by GI - Continue protonix bid, added pepcid bid- monitor for improvement Splenic infarct- no intervention per surgery. continue home eliquis Syncope- stroke w/u negative, no focal deficits- suspect due to bradycardia vs vasovagal. HR in mid 40s->now in 50s. Orthostatics negative. Lyme negative. Echo reviewed. monitor in tele. In ER no focal neuro deficits MRI brain and CT head with no acute finding CTA Head and neck: 1. There is no hemorrhage, mass effect, or evidence of acute territorial ischemia by CT criteria. 2. 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 There is no evidence of aneurysm rupture at this time. Neurosurgical/neurointerventional follow-up is advised. 3. Otherwise unremarkable CT angiogram of the brain. 4. Atherosclerotic plaque causes less than 50% luminal narrowing of the proximal right internal carotid artery. 5. Otherwise unremarkable CT angiogram of the neck. Sinus bradycardia- HR in mid 40s on admission, asymptomatic-> improved to 50s after holding BB. Reviewed cardio note after which I spoke to Dr Lei- recommended to hold BB for now- will monitor on tele. Lyme negative. TSH normal Paroxysmal Afib- currently in sinus rhythm. Anticoagulated on eliquis. - Patient reports she was diagnosed with Afib during CVA admission in 07/2021 and was noted to have bradycardia down to 30's and toprol was reduced from 50mg BID to 25mg BID- will dc completely for now Carotid aneurysm, right- seen in CTA- Patient aware- states found in 2012 and was evaluated by neurosurgery in [facility]- recommended to continue to follow up. History of CVA 07/2021- was started on Eliquis and her aspirin was discontinued- continue eliquis, intoleratant to statin Migraine- headache resolved with fioricet. continue [employer] divalproex, Qulipta. Tylenol prn Hypothyroidism: TSH normal. Continue levothyroxine DVT Prophylaxis- fully anticoagulated on Eliquis Dispo- Medsurg tele Admission and Anticipated Discharge Date Admission Date: August 29, 2021 Subjective Continues with intermittent abdominal and back pain. Hallucination is resolved. Tolerating oral intake without nausea or vomiting today. Denies any lightheadedness or dizziness. No fever or chills. Physical Exam Physical Exam: General: Sitting comfortably in chair eating breakfast, not in distress, on room air HEENT: EOMI, JONATHAN, MMM Chest: Clear breath sounds bilaterally, no wheezes or crackles CVS: Bradycardic, regular, no murmur Abdomen: Soft, LUQ tenderness, not distended, normal bowel sounds Neuro: Awake, alert, oriented, conversing well, non focal Extremities: No cyanosis, clubbing or edema Results & Data Results & Data ([facility]) Vital Signs (Past 12 Hours) Vital Signs Temp Pulse Pulse Resp BP BP Pulse Ox 08/31/21 11:12 36.8 C 59 L 18 137/88 96 08/31/21 08:11 36.4 C L 53 L 16 138/91 94 08/31/21 07:58 52 L 08/31/21 04:41 36.7 C 73 18 127/77 93 08/31/21 02:41 51 L Laboratory Results Short CBC 08/31/21 Range/Units 07:33 WBC 5.95 (4.8-10.8) K/uL Hgb 11.9 L (12.0-16.0) g/dL Hct 38.1 (37-47) % Plt Count 187 (130-400) K/uL [facility] 08/31/21 07:33 Sodium 139 Potassium 3.6 Chloride 105 Carbon Dioxide 29 BUN 25 H Creatinine 0.91 Glucose 99 Calcium 8.5 Medications Administered Current Inpatient Medications Acetaminophen (Acetaminophen 325 Mg Tab) 650 mg PO Q4H PRN PRN Reason: Pain or Fever Stop: 09/28/21 16:46 Last Admin: 08/30/21 08:55 Dose: 650 mg Documented by: Al Hydrox/Mg Hydrox/Simethicone (Aluminum/Magnesium Susp 30 Ml Udc) 15 ml PO Q4H PRN PRN Reason: Dyspepsia Stop: 09/28/21 16:46 Al Hydrox/Mg Hydrox/Simethicone (Aluminum/Magnesium Susp 30 Ml Udc) 15 ml PO TID PRN PRN Reason: Heartburn Stop: 09/30/21 07:35 Apixaban (Apixaban 5 Mg Tablet) 5 mg PO BID SHERRELL Stop: 09/28/21 20:59 Last Admin: 08/31/21 08:28 Dose: 5 mg Documented by: Cyanocobalamin (Cyanocobalamin 1000 Mcg/Ml Vial) 1,000 mcg IM QAM [facility] Stop: 10/04/21 08:59 Divalproex Sodium (Divalproex Extended Release 500 Mg Tab) 500 mg PO HS [facility] Stop: 09/28/21 20:59 Last Admin: 08/30/21 20:28 Dose: 500 mg Documented by: Docusate Sodium (Docusate Sodium 100 Mg Cap) 100 mg PO BID SHERRELL Stop: 09/28/21 20:59 Last Admin: 08/31/21 08:28 Dose: 100 mg Documented by: Famotidine (Famotidine 20 Mg Tab) 20 mg PO BID [facility] Stop: 09/30/21 08:59 Last Admin: 08/31/21 08:33 Dose: 20 mg Documented by: Dextrose/Sodium Chloride (D5w And 1/2nss) 1,000 mls @ 80 mls/hr IV .[id number] [facility] Stop: 08/31/21 15:29 Last Admin: 08/31/21 03:57 Dose: 80 mls/hr Documented by: Levothyroxine Sodium (Levothyroxine Sodium 75 Mcg Tablet) 75 mcg PO DAILYBB [facility] Stop: 09/29/21 06:29 Last Admin: 08/31/21 05:38 Dose: 75 mcg Documented by: Metoprolol Succinate (Metoprolol Succ 25mg Ext Rel Tab) 12.5 mg PO BID [facility] Stop: 09/28/21 20:59 Last Admin: 08/29/21 20:29 Dose: Not Given Documented by: Miscellaneous Information (Pharmacist Discharge Med Rec Consult) 1 ea N/A UD PRN PRN Reason: Consult Stop: 09/28/21 16:46 Atogepant [Qulipta]: Non-Form Pt's Own Med 1 ea PO QAM [facility] Stop: 09/30/21 08:59 Last Admin: 08/31/21 08:29 Dose: 60 mg Documented by: Ondansetron HCl (Ondansetron Inj 2 Mg/Ml 2 Ml Vial) 4 mg IV Q6H PRN PRN Reason: Nausea Stop: 09/28/21 16:46 Last Admin: 08/30/21 08:52 Dose: 4 mg Documented by: Oxycodone HCl (Oxycodone Hcl Ir 5 Mg Tab (Immediate Release)) 5 mg PO Q6H PRN PRN Reason: Severe Pain Stop: 09/12/21 20:13 Last Admin: 08/30/21 03:21 Dose: 5 mg Documented by: Pantoprazole Sodium (Pantoprazole 40 Mg Tab) 40 mg PO BID [facility] Stop: 09/28/21 20:59 Last Admin: 08/31/21 08:28 Dose: 40 mg Documented by: Polyethylene Glycol (Polyethylene (Miralax) 17 Gm Pack) 17 gm PO DAILY PRN PRN Reason: Constipation Stop: 09/28/21 16:46 Tramadol HCl (Tramadol Hcl 50 Mg Tablet) 50 mg PO Q6 PRN PRN Reason: mod pain Stop: 09/29/21 15:11 Last Admin: 08/31/21 10:34 Dose: 50 mg Documented by:
[2021-08-31] MEDS: LIDOCAINE 5% 1 PATCH TD SCH (17:21)
[2021-08-31] MEDS: DIVALPROEX EXTENDED RELEASE 500 MG TAB PO SCH (20:27)
[2021-09-01] MEDS: LEVOTHYROXINE SODIUM 75 MCG TABLET PO SCH (05:26)
[2021-09-01 06:10] LABS: Hematocrit (blood only) 36.7 % (37-47); Hemoglobin 11.9 g/dL (12.0-16.0); Mean Corpuscular Hemoglobin 29.6 pg (25-34); Mean Corpuscular Hgb Conc 32.4 g/dL (32-36); Mean Corpuscular Volume 91.3 fL (80-100); Mean Platelet Volume 10.6 fL (7.4-10.4); Platelet Count 170 K/uL (130-400); RDW Coefficient of Variation 14.4 % (11.5-14.5); RDW Standard Deviation 48.3 fL (36.4-46.3); Red Blood Count 4.02 M/uL (4.2-5.4); White Blood Count 6.17 K/uL (4.8-10.8)
[2021-09-01 06:38] LABS: BUN Creatinine Ratio 19.4 (10-20); Calcium 8.2 mg/dl (8.5-10.1); Creatinine Clr Calc Pharmacy 43.2 ml/min; Est GFR (African American) 66.8 ml/min; Est GFR (Non-African American) 57.6 ml/min; Magnesium 1.9 mg/dl (1.7-2.4); Potassium 3.8 mmol/L (3.5-5.1)
[2021-09-01] MEDS: APIXABAN 5 MG TABLET PO SCH (08:28)
[2021-09-01] MEDS: DOCUSATE SODIUM 100 MG CAP PO SCH (08:28)
[2021-09-01] MEDS: FAMOTIDINE 20 MG TAB PO SCH (08:28)
[2021-09-01] MEDS: PANTOprazole 40 MG TAB PO SCH (08:28)
[2021-09-01] MEDS: LIDOCAINE 5% 1 PATCH TD SCH (08:29)
[2021-09-01] MEDS: [UNRECOGNIZED DRUG - REMARK] PO SCH (08:29)
--- NOTE | 2021-09-01 11:46 | Electrocardiogram Report ---
Test Reason : Blood Pressure : / mmHG Vent. Rate : 059 BPM Atrial Rate : 059 BPM P-R Int : 160 ms QRS Dur : 084 ms QT Int : 424 ms P-R-T Axes : 112 224 213 degrees QTc Int : 419 ms Suspect arm lead reversal, interpretation assumes no reversal Sinus bradycardia Lateral infarct , age undetermined Inferior infarct , age undetermined Abnormal ECG When compared with ECG of 30-AUG-2021 05:34, Lateral infarct is now Present Inferior infarct is now Present T wave inversion now evident in Lateral leads Confirmed by Stevenson Mancilla ([id number]) on 09/01/2021 6:44:53 PM Referred By: REFERRED SELF Confirmed By:Gómez Mancilla
--- NOTE | 2021-09-01 11:49 | Electrocardiogram Report ---
Test Reason : Blood Pressure : / mmHG Vent. Rate : 045 BPM Atrial Rate : 045 BPM P-R Int : 174 ms QRS Dur : 082 ms QT Int : 454 ms P-R-T Axes : 077 -30 -20 degrees QTc Int : 392 ms Sinus bradycardia Left axis deviation Low voltage QRS Abnormal ECG When compared with ECG of 29-AUG-2021 11:26, No significant change was found Confirmed by Stevenson Mancilla ([id number]) on 09/01/2021 11:48:42 AM Referred By: REFERRED SELF Confirmed By:Gómez Mancilla
--- NOTE | 2021-09-01 13:15 | Cardiology Progress Note ---
Date of Service September 01, 2021 Assessment & Plan (1) Paroxysmal atrial fibrillation: (2) Sinus bradycardia: (3) CVA (cerebral vascular accident): Plan: The patient is currently alert and oriented and in no acute distress. The patient's beta-albert was held on admission. At present I would continue to hold the metoprolol. She is anticoagulated with Eliquis. The echocardiogram shows no evidence of a PFO or other significant findings. At this point I would recommend no additional cardiac work-up. Admission and Anticipated Discharge Date Admission Date: August 29, 2021 Subjective Telemetry reviewed: No further bradycardia arrhythmias overnight. Results & Data ([facility]) Vital Signs (Past 12 Hours) Vital Signs Temp Pulse Pulse Resp BP BP Pulse Ox 09/01/21 12:00 36.4 C L 64 18 147/75 H 98 09/01/21 07:47 36.7 C 56 L 18 165/89 H 96 09/01/21 07:39 51 L 09/01/21 02:56 36.5 C 62 16 136/84 94 09/01/21 01:33 57 L
--- NOTE | 2021-09-01 14:32 | Discharge Summary ---
Date of Service September 01, 2021 Admission HPI Per Admitting Provider Patient is 81 y/o F with PMH CVA, HTN, HLD intolerant to statins, atrial fibrillation anticoagulated on Eliquis, migraine, hypothyroidism presented to ER with complaint of abdominal pain. Patient reports she is from out of town and is visiting her family. She reports she was getting ready today standing at sink washing her face when she had sudden onset of epigastric and left upper quadrant pain described as severe. Patient reports is unable to further describe pain. She feels the pain radiated to her back. Also complains of associated nausea. Denies any vomiting or diarrhea. Patient reports she developed lightheaded and diaphoretic and went to lay on bed. Her daughter walked in and found her laying on her bed and she appeared pale and daughter reports that she was crying and "jibber jabbering" and EMS was called. Here in ER patient without any speech changes and no neuro symptoms. States has hiatal hernia. She states will get epigastric discomfort with eating ice cream that has been ongoing for months. Reports in 07/2021 had episode of trouble speaking and "jibber jabbering" and was taken to [facility] in [place], [place]. Patient reports her trouble speaking lasted a day or so and then she returned to baseline. She reports had MRI brain and was told that she had had a stroke and was told that she has an aneurysm to the artery in her neck. Patient states while hospitalized she was found to have A. fib. She reports she was also noted to have bradycardia down into the 30s so her metoprolol succinate was decreased from 50 mg twice daily to 25 mg twice daily. She reports she followed up with neurosurgeon in [facility] regarding carotid aneurysm who had recommended further intervention however patient and family declined. Reports chronic urinary frequency at night only. Denies hematuria, dysuria. Denies fever/chills, diaphoresis, diarrhea, constipation, STRONG, syncope, vision changes, neck pain, CP, SOB, orthopnea, palpitations, cough, sore throat, choking, otalgia, rhinorrhea, paresthesias, weakness, extremity weakness, extremity edema, rashes. Admission Exam Per Admitting Provider General: no distress, obese Head: normocephalic, atraumatic Eyes: PERRL, EOM's intact, conjunctiva non-injected, anicteric ENT: normal inspection external ears, nose, mucous membranes moist Neck: supple, trachea midline Lungs: clear, no respiratory distress, no wheezing/rhonchi/rales CV: RRR, no murmur, no JVD, no pretibial edema Abd: protuberant, normal BS, soft, +tenderness to palpation epigastric and mild LUQ without rebound or guarding Ext: no cyanosis, no calf tenderness Neuro: A&O x 3, no focal deficits noted, clear speech, normal affect Skin: warm, dry Principal Diagnosis Near syncope Sinus bradycardia LLQ abdominal pain Splenic infarct Migraine Hiatal hernia Carotid aneurysm, right Discharge Exam GENERAL: Alert and oriented x3. NAD, on RA. EAting lunch. HEENT: No pallor, no icterus. Pupils equal, round and reactive to light. Oral mucosa moist. NECK: No JVD, no neck masses. HEART: S1 and S2 heard. Regular rate and rhythm. No murmur, no gallop. RESPIRATORY SYSTEM: Normal AP diameter. No accessory muscle use. No wheezing, no crackles. ABDOMEN: Soft, bowel sounds present, LUQ tender-mild, no distention. CENTRAL NERVOUS SYSTEM: No facial droop. Speech is clear. Obeys simple commands. Moves extremities. EXTREMITIES: trace ble edema, no erythema seen. Discharge Data Allergies Allergy/AdvReac Type Severity Reaction Status Date / Time amoxicillin AdvReac Migraine Unverified 08/29/21 12:50 atorvastatin [From Lipitor] AdvReac Muscle Pain Unverified 08/29/21 12:50 levofloxacin [From Levaquin] AdvReac Migraine Unverified 08/29/21 12:50 loratadine [From Claritin-D] AdvReac Migraine Unverified 08/29/21 12:50 losartan [From Cozaar] AdvReac Migraine Unverified 08/29/21 12:50 pseudoephedrine AdvReac Migraine Unverified 08/29/21 12:50 [From Claritin-D] Consultations 08/29/21 14:12 ED Decision to Admit Stat 08/29/21 15:33 Consult Health Information Management Routine 08/29/21 16:47 Consult General Surgery Routine Consult Neurology Routine 08/30/21 11:09 Consult Gastroenterology Routine 08/31/21 09:53 Consult Cardiology Routine Ordered Studies 08/29/21 11:47 CT abd pelvis IV con only Stat CT angio neck with con Stat 08/29/21 11:48 CT angio head wo/w Stat 08/29/21 16:47 MR brain wo con Routine Hospital Course (1) LUQ abdominal pain: (2) Splenic infarct: (3) Near syncope: (4) Sinus bradycardia: (5) Paroxysmal atrial fibrillation: (6) HTN (hypertension): (7) Migraine: (8) Hypothyroidism: (9) Hiatal hernia: (10) Carotid aneurysm, right: Patient is 81 y/o F with PMH CVA, HTN, HLD intolerant to statins, atrial fibrillation anticoagulated on Eliquis, migraine, hypothyroidism presented to ER with complaint of abdominal pain today to epigastric, LUQ with nausea In ER afebrile, vitals stable. No leukocytosis. Unremarkable LFTs, lipase. the imaging in the ED: CT ABD/PELVIS: 1. 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 Correlation with prior imaging, if available, is recommended to establish chronicity, however acute infarct may explain patient's abdominal pain. 2. Moderate to large hiatal hernia. She was managed for the following: #. LUQ pain- ongoing for 4 months with no improvement. - CT A/P shows splenic infarct- unknown chronicity, likely chronic. Stopping home Rizatriptan upon DC due to its association w/ splenic infarct. - seen by surgery and recommended conservative measures, no intervention - Seen by GI- did not recommend further work up as this point as she recently had OP EGD couple months ago- recommended addition of pepcid to protonix recommended GI eval- seen by GI - Continue protonix bid, added pepcid bid- monitor for improvement #. Splenic infarct- no intervention per surgery. continue home eliquis. Will DC home Rizatriptan. #. Syncope- stroke w/u negative, no focal deficits- suspect due to bradycardia vs vasovagal. Early in presentation, HR in mid 40s->now in 50s. Orthostatics ne gative. Lyme negative. Echo reviewed, no interatrial septum. Tele reviewed HR in 50-60s overnight, HR in 60s in AM In ER no focal neuro deficits MRI brain and CT head with no acute finding CTA Head and neck: 1. There is no hemorrhage, mass effect, or evidence of acute territorial ischemia by CT criteria. 2. There is a 1.5 cm aneurysm of the supraclinoid right internal carotid art wendy. There is no evidence of aneurysm rupture at this time. Neurosurgical/neurointerventional follow-up is advised. 3. Otherwise unremarkable CT angiogram of the brain. 4. Atherosclerotic plaque causes less than 50% luminal narrowing of the proximal right internal carotid artery. 5. Otherwise unremarkable CT angiogram of the neck. #. Sinus bradycardia- HR in mid 40s on admission, asymptomatic-> improved to 50s to 60s after holding BB. Reviewed cardio note - recommended to hold BB for now, no additional w/u now. Lyme negative. TSH normal #. Paroxysmal Afib- currently in sinus rhythm. Anticoagulated on eliquis. - Patient reports she was diagnosed with Afib during CVA admission in 07/2021 and was noted to have bradycardia down to 30's and toprol was reduced from 50mg BID to 25mg BID- will dc completely for now #. Carotid aneurysm, right- seen in CTA- Patient aware- states found in 2012 and was evaluated by neurosurgery in [facility]- recommended to continue to follow up. #. History of CVA 07/2021- was started on Eliquis and her aspirin was discontinued- continue eliquis, intoleratant to statin #. Migraine- headache resolved with fioricet. continue [employer] divalproex, Qulipta. Tylenol prn. DC rizatriptan. #. Hypothyroidism: TSH normal. Continue levothyroxine DVT Prophylaxis- fully anticoagulated on Eliquis Patient being discharged to home with home health. Patient's daughter Nhi was given a phone call and went over to discharge recommendation. She voiced understanding and was agreeable to the plan of care. Following instructions were communicated: Follow-up with your primary care physician within a week time. For your splenic infarct, surgery evaluated you while inpatient, no intervention per surgery. Follow-up with primary care as an outpatient for continued monitoring. For your syncope, neurology and cardiology evaluated you while inpatient, your metoprolol has been stopped, your heart rate has been better upon discontinuing your metoprolol. Follow-up with your heart doctor as an outpatient in 2 to 3 weeks time for further evaluation and management. For your hiatal hernia and abdominal pain, GI doctor evaluated you, because of your recent work-up by your primary care physician and your primary GI physician, no further interventions were done while in hospital, Pepcid has been added on top of your home Protonix. Follow-up with the GI doctor as an outpatient. I will discharge you with few days worth of pain meds, you will need to get in touch with your PCP for further evaluation/prescription on Pain Management. You can also buy [id number] lidocaine patch 4% for your pain management if not controlled with Tylenol and tramadol. For your history of carotid aneurysm x right, maintain follow-up with your neur osurgery as previous recommendation. Get your blood work CBC and CMP done in a week time and have the results forwarded to your primary care physician. Your vitamin B12 was low, you have been started on vitamin B12 supplement. Because of the concern of association of splenic infarction due to rizatriptan, your home medication rizatriptan has been stopped upon discharge. Continue follow-up with your primary care physician for further evaluation and management of your migraine. Continue other home meds. Continue with your home health physical therapy. Take your medications as prescribed. Total Time Total Time Spent Total Time Spent (In Minutes): 45 Discharge Plan Discharge Items Patient Disposition: Home - Home Health Services Reason For Visit: ABD PAIN Discharge Diagnosis: Near syncope Sinus bradycardia LLQ abdominal pain Splenic infarct Migraine Hiatal hernia Carotid aneurysm, right Activity: Resume your previous activity Non-emergency contact: Primary Care Provider Call non-emergency contact if: you have any medication questions, your symptoms worsen and your temperature is above 101 Follow-up/Referrals: PCP,NO [Primary Care Provider] - Diet: Regular Addtl Attending Provider Instructions: Follow-up with your primary care physician within a week time. For your splenic infarct, surgery evaluated you while inpatient, no intervention per surgery. Follow-up with primary care as an outpatient for continued monitoring. For your syncope, neurology and cardiology evaluated you while inpatient, your metoprolol has been stopped, your heart rate has been better upon discontinuing your metoprolol. Follow-up with your heart doctor as an outpatient in 2 to 3 weeks time for further evaluation and management. For your hiatal hernia and abdominal pain, GI doctor evaluated you, because of your recent work-up by your primary care physician and your primary GI phy sician, no further interventions were done while in hospital, Pepcid has been added on top of your home Protonix. Follow-up with the GI doctor as an outpatient. I will discharge you with few days worth of pain meds, you will need to get in touch with your PCP for further evaluation/prescription on Pain Management. You can also buy [id number] lidocaine patch 4% for your pain management if not controlled with Tylenol and tramadol. For your history of carotid aneurysm x right, maintain follow-up with your neurosurgery as previous recommendation. Get your blood work CBC and CMP done in a week time and have the results forwarded to your primary care physician. Your vitamin B12 was low, you have been started on vitamin B12 supplement. Because of the concern of association of splenic infarction due to rizatriptan, your home medication rizatriptan has been stopped upon discharge. Continue follow-up with your primary care physician for further evaluation and management of your migraine. Continue other home meds. Continue with home health PT. Take your medications as prescribed. Pending Studies at Discharge: No Stand-Alone Forms: My [facility] [employer], Smoking Cessation Medications and DC Order Prescriptions: New acetaminophen 325 mg Tablet 650 mg PO Q6H PRN (Reason: fever or pain) Qty: 30 RF: 0 tramadol 50 mg Tablet 50 mg PO Q6 PRN (Reason: severe pain (scale score 7-10)) Qty: 20 RF: 0 famotidine 20 mg Tablet 20 mg PO BID Qty: 60 RF: 0 cyanocobalamin (vitamin B-12) 100 mcg tablet 100 mcg PO DAILY Qty: 30 RF: 0 Continued divalproex 500 mg Tablet Extended Release 24 Hr 500 mg PO HS RF: 0 ondansetron HCl [Zofran] 4 mg Tablet 4 mg PO Q4H RF: 0 levothyroxine 75 mcg Tablet 75 mcg PO QAM RF: 0 pantoprazole 40 mg Tablet,Delayed Release (Dr/Ec) 40 mg PO BID RF: 0 docusate sodium 100 mg Capsule 100 mg PO BID RF: 0 Eliquis 5 mg Tablet 5 mg PO BID RF: 0 Qulipta 60 mg Tablet 60 mg PO QAM RF: 0 Discontinued azithromycin 250 mg Tablet 250 mg PO DIRECTED RF: 0 metoprolol succinate 50 mg Tablet Extended Release 24 Hr 25 mg PO BID RF: 0 rizatriptan 10 mg Tablet 0 mg PO .COMPLEX RF: 0 Discharge Orders: Discharge Order (Routine); Ordered 09/01/21 Ordered By: Emperatriz Francisco Admission Data Admit Date/Time: 08/29/21 15:33 Attending Provider: Emperatriz Francisco Admit Provider: Deondre Andrew Primary Care Provider: PCP,ULICES Other Providers: Deondre Andrew ; Chepe Riggs ; Hanny Stallings ; Becky Pinzon ; Chepe Lei
[2021-09-04] MEDS ORDERED: CYANOCOBALAMIN 1000 MCG/ML VIAL IM SCH (09:00)
== END 2021-09-01 17:00 | disposition home health service (06) | DRG 815 ==
LOC: ED 11:17 → SUATTDRO 15:33 → 2N 15:33

== ENCOUNTER 2024-03-01 09:57 | Observation (INO) ==
--- NOTE | 2024-03-01 10:18 | Emergency Department Note ---
Impression & Plan Syncope, Fall, Chronic anticoagulation, Acute pain of left knee, History of atrial fibrillation ED Provider Note NAME: MUKUND ABDI AGE: 83 SEX: F : 1940 ARRIVES VIA: Ambulance INFORMANT: Patient, nursing/EMS report, daughter ED PROVIDER(S): Braydon Carty MD CHIEF COMPLAINT: Syncope MEDICAL DECISION MAKING: Patient presents due to concern for syncope while on Eliquis. No reported head strike no head or neck pain does complain of left knee pain. Patient is well- appearing at the bedside. Known history of A-fib. Patient's blood work shows a normal white count H&H and platelet count. The patient's kidney function is unremarkable with normal electrolytes. TSH elevated but free T4 normal. The patient did have a head CT PE and chest x-rays obtained. These are unremarkable. Given the patient's known history of A-fib with associated syncope without prodromal symptoms to believe the patient would benefit from admission and telemetry. I did speak with ALBANIA Diaz with Dr. Chavez and the patient was admitted to the medicine service. I discussed the findings and recommendations with the patient. After further discussion the patient was on Depakote in the past for migraines. She does have a prior history of what they described as a cerebral aneurysm but the patient had recently had a study completed and seen by Dr. Go through [facility] and this was apparently unchanged back in January. Patient currently is without any headache or neurologic symptoms. Discussion w/ other healthcare providers: ALBANIA Diaz with Dr. Chavez inpatient medicine service Prior /Outside records reviewed: none Differential diagnosis: Vasovagal event, dehydration, infection, hypoglycemia, electrolyte abnormalities, arrhythmia, pulmonary embolism, seizure among others were considered. Diagnostics, as interpreted by me: ECG: Sinus with first-degree AV block, rate of 56, prolonged OK normal QRS, left axis deviation T wave inversions inferiorly as well as anterior laterally.Patient's T wave inversions appear chronic from comparison September 01, 2021. Cardiac monitoring: An order was placed for continuous cardiac monitoring. The monitor shows a rate of 56 with sinus rhythm. Patient was placed on pulse oximetry Medical decision rules: None Imaging studies: I informally interpreted the patient's chest x-ray does not show obvious pneumonia or pneumothorax with formal report to follow. HPI: Patient presents due to concern for syncope that occurred at [facility] prior to arrival. The patient states that she was walking towards the gift cards when she suddenly just passed out. The patient denies any prodromal symptoms of dizziness or lightheadedness no palpitations. The patient denies any chest pain or shortness of breath. Patient states that she does have some left knee pain. She does not believe that she struck her head. The patient denies any head neck chest back or abdominal pain no upper extremity or right lower extremity pain. The patient last took her Eliquis this morning. Patient does follow with [facility] cardiology. PAST MEDICAL HISTORY: See Below PAST SURGICAL HISTORY: See Below SOCIAL HISTORY: See Below HOME MEDICATIONS: See Below ALLERGIES: See Below VITALS: See Below PHYSICAL EXAMINATION: GENERAL: NAD, non-toxic. Wearing glasses. EYE EXAM: Normal conjunctiva. PERRL, no anisocoria and EOM's grossly intact w/o pain. Head: Normocephalic atraumatic. OROPHARYNX: Moist mucus membranes, grossly normal dentition. NECK: Trachea midline, no stridor. Supple, no nuchal rigidity, no adenopathy, non-tender. No signs of meningismus. FROM of the neck with good chin to chest and neck extension. No midline C-spine TTP. LUNGS: Clear to auscultation. Normal chest wall mechanics. HEART: NSR, no MRG. ABDOMEN: Abdomen soft, non-tender, no masses, no rebound or guarding. BACK: No CVA TTP. SKIN: No rashes and no bruising. UPPER EXTREMITIES: Upper extremities are grossly normal. No TTP or deformity. LOWER EXTREMITIES: Mild left knee pain with associated ecchymosis and no significant swelling able to bend at the left knee no obvious deformity neurovasc intact distally. No TTP to the right lower extremity. NEURO EXAM: A&O x3, cranial nerves II-XII grossly intact, normal speech, moves all 4 extremities. Past Med/Surg History Problem List (Updated 03/01/24 @ 16:30 by Braydon Carty MD) History of atrial fibrillation (Acute) Acute pain of left knee (Acute) Chronic anticoagulation (Acute) Fall (Acute) Syncope (Acute) Fall Paroxysmal atrial fibrillation Sinus bradycardia LUQ abdominal pain Bradycardia CVA (cerebral vascular accident) History of appendectomy Hypothyroidism Migraine HTN (hypertension) Atrial fibrillation Anticoagulant long-term use (Acute) Carotid aneurysm, right (Acute) Hiatal hernia Near syncope (Acute) Splenic infarct (Acute) Abdominal pain (Acute) Medical History Postoperative abdominal hernia Abdominal wall hernia Stroke Surgical History History of lumpectomy of left breast pt reported benign H/O: hysterectomy Family History Father Heart disease Alzheimer disease Grandmother (Maternal) Breast cancer Social History Smoking Status: Former smoker Hx Alcohol Use: No Hx Substance Use: No Preferred Language: Monegasque Communication Ability: Effective Tax Advisor Required: No Beliefs That Will Affect Care: None marital status: / Current Living Situation: Family Current Living Situation Comment: lives in apartment How many Children do You have: 4 Other Information That Helps Us Care for You: No Feels Safe at Home: Yes Safety Concerns: Feels Safe At This Time Assistive Devices: Denture - Upper, Denture - Lower, Glasses and Walker Allergies Allergies Allergy/AdvReac Type Severity Reaction Status Date / Time amoxicillin AdvReac Migraine Unverified 03/01/24 11:25 atorvastatin [From Lipitor] AdvReac Muscle Pain Unverified 03/01/24 11:25 levofloxacin [From Levaquin] AdvReac Migraine Unverified 03/01/24 11:25 loratadine [From Claritin-D] AdvReac Migraine Unverified 03/01/24 11:25 losartan [From Cozaar] AdvReac Migraine Unverified 03/01/24 11:25 pseudoephedrine AdvReac Migraine Unverified 03/01/24 11:25 [From Claritin-D] Home Meds Home Medications Medication Instructions Recorded Confirmed apixaban 5 mg tablet (Eliquis) 5 mg PO BID 08/29/21 03/01/24 atogepant 60 mg tablet (Qulipta) 60 mg PO QAM 08/29/21 03/01/24 levothyroxine 75 mcg tablet 75 mcg PO QAM 08/29/21 03/01/24 amlodipine 5 mg tablet 5 mg PO DAILY 03/01/24 03/01/24 cholecalciferol (vitamin D3) 25 25 mcg PO QAM 03/01/24 03/01/24 mcg (1,000 unit) tablet (Vitamin D3) fluoxetine 20 mg capsule 20 mg PO DAILY 03/01/24 03/01/24 levocetirizine 5 mg tablet (Xyzal) 5 mg PO PM 03/01/24 03/01/24 metoprolol succinate 25 mg 25 mg PO DAILY 03/01/24 03/01/24 tablet,extended release 24 hr multivitamin 1 tab PO QAM 03/01/24 03/01/24 pantoprazole 20 mg tablet,delayed 20 mg PO DAILY 03/01/24 03/01/24 release turmeric 400 mg capsule 400 mg PO QAM 03/01/24 03/01/24 Results & Data (ED) Vital Signs Vital Signs - 24 hr 03/01/24 10:01 03/01/24 10:16 03/01/24 10:21 Temperature 37.0 C Temperature Source Oral Pulse Rate 66 57 L 57 L Pulse Rate from SpO2 Sensor Pulse Rhythm Regular Pulse Strength Normal Respiratory Rate 18 Respiratory Effort / Characteristics Non-Labored Spontaneous Respiratory Depth Normal Respiratory Pattern Regular Blood Pressure 160/99 H Blood Pressure Mean 119 Blood Pressure Position Sitting Pulse Oximetry 95 98 Oxygen Delivery Method Room Air Room Air Sepsis Recent Fever Within 48 Hours No Sepsis New/Unexplained Change in Mental Status No Sepsis Action Taken by Nursing No Action Required 03/01/24 11:33 Temperature Temperature Source Pulse Rate 53 L Pulse Rate from SpO2 Sensor 52 L Pulse Rhythm Pulse Strength Respiratory Rate 14 Respiratory Effort / Characteristics Respiratory Depth Respiratory Pattern Blood Pressure 177/107 H Blood Pressure Mean 130 Blood Pressure Position Pulse Oximetry 97 Oxygen Delivery Method Sepsis Recent Fever Within 48 Hours Sepsis New/Unexplained Change in Mental Status Sepsis Action Taken by Shelter Medications Current Medication List: was personally reviewed by me Laboratory Data Attestation: I reviewed the patient's lab results. 03/01/24 10:06 03/01/24 10:06 Lab Results 03/01/24 Range/Units 10:06 WBC 6.46 (4.8-10.8) K/ul RBC 4.46 (4.20-5.40) M/uL Hgb 13.1 (12.0-16.0) g/dl Hct 40.0 (37.0-47.0) % MCV 89.7 (80.0-100.0) fL MCH 29.4 (25.0-34.0) pg MCHC 32.8 (32.0-36.0) g/dL RDW Std Deviation 43.3 (36.4-46.3) fL RDW Coeff of Mary 13.2 (11.5-14.5) % Plt Count 200 (130-400) K/uL MPV 10.6 (9.4-12.4) fL Immature Gran % (Auto) 0.9 % Neut % (Auto) 67.1 % Lymph % (Auto) 18.0 % Barbour % (Auto) 9.9 % Eos % (Auto) 3.6 % Baso % (Auto) 0.5 % Neut # (Auto) 4.34 (1.40-6.50) K/uL Lymph # (Auto) 1.16 L (1.20-3.40) K/uL Barbour # (Auto) 0.64 H (0.11-0.59) K/uL Eos # (Auto) 0.23 (0.00-0.50) K/uL Baso # (Auto) 0.03 (0.00-0.20) K/uL Immature Gran # (Auto) 0.06 (0.01-0.20) K/uL Sodium 141 (136-145) mmol/L Potassium 4.2 (3.5-5.1) mmol/L Chloride 108 H (98-107) mmol/L Carbon Dioxide 29 (21-32) mmol/L Anion Gap 4 (3-11) BUN 19 (6-23) mg/dl Creatinine 0.91 (0.6-1.2) mg/dl Est Cr Clr Drug Dosing 42.2 ml/min eGFR 62.60 BUN/Creatinine Ratio 20.9 H (10-20) Glucose 88 (70-99(Fasting)) mg/dl Calcium 9.0 (8.6-10.3) mg/dl Magnesium 2.0 (1.7-2.4) mg/dl Total Bilirubin 0.5 (0.2-1.0) mg/dl AST 15 (13-39) U/L ALT 11 (7-52) U/L Alkaline Phosphatase 80 (34-104) U/L Troponin I High Sens 7.8 (0-14) pg/ml Total Protein 6.3 (6.0-8.3) gm/dl Albumin 3.5 (3.4-5.0) gm/dl Globulin 2.8 (2.5-4.0) gm/dl Albumin/Globulin Ratio 1.3 (0.9-2) TSH 5.531 H (0.300-4.500) uIu/ml Free T4 1.09 (0.61-1.60) ng/dl Administered Medications Discontinued Medications Acetaminophen (Acetaminophen 500 Mg Tab) 1,000 mg PO NOW STA Stop: 03/01/24 12:39 Last Admin: 03/01/24 12:42 Dose: 1,000 mg Documented By: NADINE Lidocaine (Lidocaine 5% 1 Patch) 1 patch TD NOW STA Stop: 03/01/24 12:38 Last Admin: 03/01/24 12:42 Dose: 1 patch Documented By: NADINE Imaging Data Radiologist's Impression: Chest X-Ray 03/01/24 10:16 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 Comparison: None available at the time of this dictation. FINDINGS: No lines and tubes are seen. Calcified and tortuous aorta is seen. The lungs are clear. No evidence of pleural effusion or pneumothorax. IMPRESSION: No acute chest disease. ACT 112: Negative or not required by law. Electronically signed by: Trenton Culver M.D. 03/01/2024 10:38 AM Knee X-Ray 03/01/24 10:16 XR knee LT 3V HISTORY: 83 years-old Female pain/bruising post fall acute left knee pain status post syncope COMPARISON: None TECHNIQUE: 3 views of the left knee FINDINGS: Arterial calcifications. Demineralized appearance of the bones. Arterial calcifications. Dystrophic 1.4 cm calcification noted in the expected location of the MCL origin. There is moderate anterolateral soft tissue swelling. No acute fracture, dislocation or large joint effusion. IMPRESSION: Soft tissue swelling without acute fracture. ACT 112: Negative or not required by law. The above report was generated using voice recognition software. It may contain grammatical, syntax or spelling errors. Electronically signed by: Rashard Roberts M.D. 03/01/2024 10:55 AM Discharge Plan Visit Data Chief Complaint: Syncope Stated Complaint: SYNCOPE ED Provider: Braydon Carty Discharge Problem: Syncope, Fall, Chronic anticoagulation, Acute pain of left knee, History of atrial fibrillation Patient Disposition: Admitted As Inpatient Discharge Instructions Interventions: ED Discharge Assessment Last Done: 03/01/24 12:35 Discharge Problem: Syncope Qualifiers: Syncope type: unspecified Qualified Code(s): R55 - Syncope and collapse Fall Qualifiers: Encounter type: initial encounter Qualified Code(s): W19.XXXA - Unspecified fall, initial encounter
[2024-03-01 10:35] LABS: Basophils # (auto) 0.03 K/uL (0.00-0.20); Basophils % (auto) 0.5 %; Eosinophils # (auto) 0.23 K/uL (0.00-0.50); Eosinophils % (auto) 3.6 %; Hemoglobin 13.1 g/dl (12.0-16.0); Immature Granulocytes # (auto) 0.06 K/uL (0.01-0.20); Immature Granulocytes % (auto) 0.9 %; Lymphocytes # (auto) 1.16 K/uL (1.20-3.40); Mean Corpuscular Hemoglobin 29.4 pg (25.0-34.0); Mean Corpuscular Hgb Conc 32.8 g/dL (32.0-36.0); Mean Corpuscular Volume 89.7 fL (80.0-100.0); Mean Platelet Volume 10.6 fL (9.4-12.4); Monocytes # (auto) 0.64 K/uL (0.11-0.59); Monocytes % (auto) 9.9 %; Neutrophils # (auto) 4.34 K/uL (1.40-6.50); Neutrophils % (auto) 67.1 %; Platelet Count 200 K/uL (130-400); RDW Coefficient of Variation 13.2 % (11.5-14.5); RDW Standard Deviation 43.3 fL (36.4-46.3); Red Blood Count 4.46 M/uL (4.20-5.40); White Blood Count 6.46 K/ul (4.8-10.8)
--- NOTE | 2024-03-01 10:40 | XRay Report ---
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 Comparison: None available at the time of this dictation. FINDINGS: No lines and tubes are seen. Calcified and tortuous aorta is seen. The lungs are clear. No evidence o f pleural effusion or pneumothorax. IMPRESSION: No acute chest disease. ACT 112: Negative or not required by law. Electronically signed by: Trenton Culver M.D. 03/01/2024 10:38 AM
--- NOTE | 2024-03-01 10:56 | XRay Report ---
XR knee LT 3V HISTORY: 83 years-old Female pain/bruising post fall acute left knee pain status post syncope COMPARISON: None TECHNIQUE: 3 views of the left knee FINDINGS: Arterial calcifications. Demineralized appearance of the bones. Arterial calcifications. Dystrophic 1 .4 cm calcification noted in the expected location of the MCL origin. There is moderate anterolateral soft tissue swelling. No acute fracture, dislocation or large joint effusion. IMPRESSION: Soft tissue swelling without acute fracture. ACT 112: Negative or not required by law. The above report was generated using voice recognition software. It may contain grammatical, syntax o r spelling errors. Electronically signed by: Rashard Roberts M.D. 03/01/2024 10:55 AM
[2024-03-01 10:58] LABS: Albumin Globulin Ratio 1.3 (0.9-2); Albumin Level 3.5 gm/dl (3.4-5.0); BUN Creatinine Ratio 20.9 (10-20); Bilirubin,Total 0.5 mg/dl (0.2-1.0); Creatinine Clr Calc Pharmacy 42.2 ml/min; Globulin 2.8 gm/dl (2.5-4.0); Potassium 4.2 mmol/L (3.5-5.1); Total Protein 6.3 gm/dl (6.0-8.3)
[2024-03-01 11:04] LABS: Troponin I High Sensitivity 7.8 pg/ml (0-14)
--- NOTE | 2024-03-01 12:04 | History & Physical Report ---
Date of Service March 01, 2024 Assessment & Plan (1) Paroxysmal atrial fibrillation: (2) Sinus bradycardia: (3) CVA (cerebral vascular accident): (4) Hypothyroidism: (5) Migraine: (6) HTN (hypertension): (7) Carotid aneurysm, right: (8) Hiatal hernia: Plan Assessment and plan: Syncope Bradycardia: EKG with sinus bradycardia in the 50s, reports this is the patient's baseline Hold metoprolol for now, telemetry monitoring, check orthostatic BPs Recheck echo, cardiology consult, suspect underlying arrhythmia or symptomatic bradycardia Troponin level negative, mag and K within normal limits Hx HTN/AF/CVA: Continue amlodipine/hold metoprolol with bradycardia Hold Eliquis for now with injury to left knee, monitor H/H Hx migraines: Hold Qulipta while inpatient Hx hypothyroidism: Continue Synthroid, check TSH Hx GERD: Continue Protonix A total of 60 minutes was spent on chart review/facilitating plan of care/reviewing diagnostic data/discussion with consultants Full code DVT prophylaxis: Eliquis on hold History of Present Illness Chief Complaint: syncope Primary Care Provider: Temi Santos MD The patient is an 83-year-old female with a past medical history of bradycardia, PAF, on Eliquis, HTN, carotid aneurysm right, syncopal episodes, splenic infarct, hypothyroidism, depression, GERD, migraines who presents to the ED on 03/01/2024 with complaints of passing out at the grocery store today. Patient's daughter reports she dropped her off at [employer] this morning. The patient reports while she was shopping she passed out. It is unclear how long the pat ient was down for. Patient denies any dizziness but does remember feeling some lightheadedness prior to passing out. She reports compliance with her medications. On exam, the patient denies any chest pain/shortness of breath/nausea/vomiting/diarrhea/abdominal pain. Patient's daughter is at bedside and reports the patient is usually in sinus rhythmsinus bradycardia in the 50s sometimes in the 40s, patient denies any heart palpitations or blurry vision. Patient was hospitalized for similar symptoms in 2021 and her metoprolol was temporarily held and she has been back on her metoprolol for about 2 years now. Does have a history of a stroke and had some residual slurred speech but otherwise has no weakness no other focal deficits. Has a history of hernia repair 2 years ago and she was being considered for Watchman device prior to this. That is not being pursued at this time. Patient does not smoke, denies illicit drug use, denies alcohol use. She does report a recent viral illness and taking cough medicine and she feels that her cough is improving. Labs are fairly unremarkable on arrival., Troponin was negative, no acute EKG changes recent viral illness - taking cough medicine - dry cough - getting better Head CT was negative, patient does not believe she struck her head with the fall, denies any headaches, neuroexam within normal limits Knee x-ray showed soft tissue swellingno acute fracture Chest x-ray was negative The patient will be admitted for further syncope workup Allergies Allergy/AdvReac Type Severity Reaction Status Date / Time amoxicillin AdvReac Migraine Unverified 03/01/24 11:25 atorvastatin [From Lipitor] AdvReac Muscle Pain Unverified 03/01/24 11:25 levofloxacin [From Levaquin] AdvReac Migraine Unverified 03/01/24 11:25 loratadine [From Claritin-D] AdvReac Migraine Unverified 03/01/24 11:25 losartan [From Cozaar] AdvReac Migraine Unverified 03/01/24 11:25 pseudoephedrine AdvReac Migraine Unverified 03/01/24 11:25 [From Claritin-D] Home Medications Medication Instructions Recorded Confirmed Type apixaban 5 mg tablet (Eliquis) 5 mg PO BID 08/29/21 03/01/24 History atogepant 60 mg tablet (Qulipta) 60 mg PO QAM 08/29/21 03/01/24 History levothyroxine 75 mcg tablet 75 mcg PO QAM 08/29/21 03/01/24 History amlodipine 5 mg tablet 5 mg PO DAILY 03/01/24 03/01/24 History cholecalciferol (vitamin D3) 25 25 mcg PO QAM 03/01/24 03/01/24 History mcg (1,000 unit) tablet (Vitamin D3) fluoxetine 20 mg capsule 20 mg PO DAILY 03/01/24 03/01/24 History levocetirizine 5 mg tablet (Xyzal) 5 mg PO PM 03/01/24 03/01/24 History metoprolol succinate 25 mg 25 mg PO DAILY 03/01/24 03/01/24 History tablet,extended release 24 hr multivitamin 1 tab PO QAM 03/01/24 03/01/24 History pantoprazole 20 mg tablet,delayed 20 mg PO DAILY 03/01/24 03/01/24 History release turmeric 400 mg capsule 400 mg PO QAM 03/01/24 03/01/24 History Past Med/Surg History Problem List (Updated 09/20/23 @ 00:07 by Daryn Domínguez) Paroxysmal atrial fibrillation Sinus bradycardia LUQ abdominal pain Bradycardia CVA (cerebral vascular accident) History of appendectomy Hypothyroidism Migraine HTN (hypertension) Atrial fibrillation Anticoagulant long-term use (Acute) Carotid aneurysm, right (Acute) Hiatal hernia Near syncope (Acute) Splenic infarct (Acute) Abdominal pain (Acute) Medical History Postoperative abdominal hernia Abdominal wall hernia Stroke Surgical History History of lumpectomy of left breast pt reported benign H/O: hysterectomy Family History Father Heart disease Alzheimer disease Grandmother (Maternal) Breast cancer Social History Smoking Status: Never smoker Hx Alcohol Use: No Hx Substance Use: No Preferred Language: Turkmen Communication Ability: Effective Beliefs That Will Affect Care: None marital status: / Current Living Situation: Alone Current Living Situation Comment: lives in single story apartment alone without steps How many Children do You have: 4 Feels Safe at Home: Yes Assistive Devices: Cane, CPAP and Walker Review of Systems Review of Systems: All systems reviewed & are unremarkable except as noted in HPI & below Physical Exam Constitutional: WD/WN, vitals as above Eyes: PERRL, conjunctivae normal, anicteric sclerae ENMT: external ear and nose normal, oropharynx normal Neck: trachea midline, no thyromegaly Respiratory: normal respiratory effort, lungs clear to auscultation Cardiovascular: RRR, no murmur, no edema (+ 3 b/l le non pitting edema ) Gastrointestinal (Abdomen): normal bowel sounds, soft, nontender, no hepatosplenomegaly Musculoskeletal: no cyanosis or clubbing, extremities motor strength 5/5 (L knee soft tissue swelling ) Skin: no rashes, warm and dry Neurologic: PERRL, EOMI, accommodation nl, no face palsy, no dysarthria Psychiatric: A+Ox3, euthymic affect Lymphatic: no cervical or axillary lymphadenopathy Results & Data Results & Data Vital Signs (Past 12 Hours) Vital Signs Temp Pulse Resp BP Pulse Ox O2 Del Method 03/01/24 11:33 53 L 14 177/107 H 97 03/01/24 10:21 57 L 03/01/24 10:16 57 L 98 Room Air 03/01/24 10:01 37.0 C 66 18 160/99 H 95 Room Air Diagnostic Findings Laboratory Results WBC 6.46 K/ul (4.8-10.8) 03/01/24 10:06 RBC 4.46 M/uL (4.20-5.40) 03/01/24 10:06 Hgb 13.1 g/dl (12.0-16.0) 03/01/24 10:06 Hct 40.0 % (37.0-47.0) 03/01/24 10:06 MCV 89.7 fL (80.0-100.0) 03/01/24 10:06 MCH 29.4 pg (25.0-34.0) 03/01/24 10:06 MCHC 32.8 g/dL (32.0-36.0) 03/01/24 10:06 RDW Std Deviation 43.3 fL (36.4-46.3) 03/01/24 10:06 RDW Coeff of Mary 13.2 % (11.5-14.5) 03/01/24 10:06 Plt Count 200 K/uL (130-400) 03/01/24 10:06 MPV 10.6 fL (9.4-12.4) 03/01/24 10:06 Immature Gran % (Auto) 0.9 % 03/01/24 10:06 Neut % (Auto) 67.1 % 03/01/24 10:06 Lymph % (Auto) 18.0 % 03/01/24 10:06 Broome % (Auto) 9.9 % 03/01/24 10:06 Eos % (Auto) 3.6 % 03/01/24 10:06 Baso % (Auto) 0.5 % 03/01/24 10:06 Neut # (Auto) 4.34 K/uL (1.40-6.50) 03/01/24 10:06 Lymph # (Auto) 1.16 K/uL (1.20-3.40) L 03/01/24 10:06 Broome # (Auto) 0.64 K/uL (0.11-0.59) H 03/01/24 10:06 Eos # (Auto) 0.23 K/uL (0.00-0.50) 03/01/24 10:06 Baso # (Auto) 0.03 K/uL (0.00-0.20) 03/01/24 10:06 Immature Gran # (Auto) 0.06 K/uL (0.01-0.20) 03/01/24 10:06 Sodium 141 mmol/L (136-145) 03/01/24 10:06 Potassium 4.2 mmol/L (3.5-5.1) 03/01/24 10:06 Chloride 108 mmol/L (98-107) H 03/01/24 10:06 Carbon Dioxide 29 mmol/L (21-32) 03/01/24 10:06 Anion Gap 4 (3-11) 03/01/24 10:06 BUN 19 mg/dl (6-23) 03/01/24 10:06 Creatinine 0.91 mg/dl (0.6-1.2) 03/01/24 10:06 Est Cr Clr Drug Dosing 42.2 ml/min 03/01/24 10:06 eGFR 62.60 03/01/24 10:06 BUN/Creatinine Ratio 20.9 (10-20) H 03/01/24 10:06 Glucose 88 mg/dl (70-99(Fasting)) 03/01/24 10:06 Calcium 9.0 mg/dl (8.6-10.3) 03/01/24 10:06 Magnesium 2.0 mg/dl (1.7-2.4) 03/01/24 10:06 Total Bilirubin 0.5 mg/dl (0.2-1.0) 03/01/24 10:06 AST 15 U/L (13-39) 03/01/24 10:06 ALT 11 U/L (7-52) 03/01/24 10:06 Alkaline Phosphatase 80 U/L (34-104) 03/01/24 10:06 Troponin I High Sens 7.8 pg/ml (0-14) 03/01/24 10:06 Total Protein 6.3 gm/dl (6.0-8.3) 03/01/24 10:06 Albumin 3.5 gm/dl (3.4-5.0) 03/01/24 10:06 Globulin 2.8 gm/dl (2.5-4.0) 03/01/24 10:06 Albumin/Globulin Ratio 1.3 (0.9-2) 03/01/24 10:06 Impressions Chest X-Ray 03/01/24 10:16 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 Comparison: None available at the time of this dictation. FINDINGS: No lines and tubes are seen. Calcified and tortuous aorta is seen. The lungs are clear. No evidence of pleural effusion or pneumothorax. IMPRESSION: No acute chest disease. ACT 112: Negative or not required by law. Electronically signed by: Trenton Culver M.D. 03/01/2024 10:38 AM Knee X-Ray 03/01/24 10:16 XR knee LT 3V HISTORY: 83 years-old Female pain/bruising post fall acute left knee pain status post syncope COMPARISON: None TECHNIQUE: 3 views of the left knee FINDINGS: Arterial calcifications. Demineralized appearance of the bones. Arterial calcifications. Dystrophic 1.4 cm calcification noted in the expected location of the MCL origin. There is moderate anterolateral soft tissue swelling. No acute fracture, dislocation or large joint effusion. IMPRESSION: Soft tissue swelling without acute fracture. ACT 112: Negative or not required by law. The above report was generated using voice recognition software. It may contain grammatical, syntax or spelling errors. Electronically signed by: Rashard Roberts M.D. 03/01/2024 10:55 AM Supervising Physician Co-Signing Physician Notes Patient is an 83-year-old female with history of CVA, paroxysmal atrial fibrillation on chronic anticoagulation with Eliquis, hypothyroidism, migraine, hypertension and other medical problems presents with history of syncopal episode today. Patient states that she suddenly lost consciousness resulting in a fall hitting her left knee causing pain and swelling. Denies any head trauma. Also denies any dizziness, diaphoresis, chest pain, shortness of breath, nausea, vomiting today. Patient's daughter reports that her heart rate has been low mostly in the 40s to 50s and has been on metoprolol as recommended by her it recruiter. Patient denies any palpitations, skipping beats that she felt. Patient also states she has been recovering from a URI since 1 week duration and has been using Delsym as needed. Currently she denies any significant cough. please review HPI for complete details of presentation. I personally reviewed blood work, imaging studies and EKG. CT head showed no acute process. Carotid ultrasound showed no significant hemodynamic stenosis. Knee x-ray showed soft tissue swelling without acute fractures. EKG showed sinus bradycardia with first-degree AV block, low voltage QRS, left axis deviation. Physical Exam: Vitals signs as noted above General Appearance: Morbidly obese, no apparent distress Head: normocephalic, Atraumatic Eyes: normal inspection, EOMI Neck: supple, Trachea midline Respiratory/Chest: Normal breath sounds, CTA, No accessory muscle use Cardiovascular: S1, S2, No murmur, + bradycardia Abdomen/GI:Soft, Non tender, Bowel sounds present Extremities/Musculoskeletal:normal inspection, trace edema, left knee ecchymosis, tender, swelling Neurologic/Psych:AAOX3, grossly no focal neurological deficits Skin: normal color, warm Syncope Sinus bradycardia with first-degree AV block History of paroxysmal A-fib on Eliquis Fall secondary to syncopal episode Left knee contusion CT head, carotid ultrasound noncontributory Check orthostatics, resting echo monitor on telemetry Hold metoprolol for now Cardiology consulted PT OT, fall precautions Given significant left knee swelling, will hold Eliquis for now Monitor H&H Pain control I personally interviewed and examined at bedside. Patient's care is coordinated with Leyda LOVELACE. I have reviewed the advanced practitioner's documentation, and I agree with plan of care. Please refer to the documentation above for details of patient's presentation and for discussion of other issues. I spent a total [id number] coordinating, documenting, and providing care for this patient excluding time spent in the performance of separately billed services.
--- NOTE | 2024-03-01 12:21 | CT Scan Report ---
CT head/brain wo con CLINICAL HISTORY: syncope Technique: Contiguous axial CT images of the head were acquired from the base of the skull to the mitchel connor without intravenous contrast administration. Images were viewed in brain, subdural and [facility] . Automated dose lowering techniques and/or adjustment according to patient size were utilized for this exam. Comparison: Comparison is made to CT head 08/29/2021 Findings: Areas of decreased attenuation are present in the periventricular and subcortical white matter bilate rally consistent with small vessel ischemic disease. Generalized cerebral atrophy with commensurate e nlargement of the ventricles, sulci, and cisterns is also present. There is no acute intracranial hem orrhage or evidence of acute territorial infarction. No shift of the midline structures, mass effect, or extra-axial abnormalities are shown. Atherosclerotic calcifications are present in the intracran ial segments of the internal carotid arteries. As the posterior right frontal lobe is unchanged. Pre viously noted right carotid aneurysm is partially visualized. Imaged portions of the paranasal sinuses and mastoid air cells are clear. The orbits appear normal. There are no acute fractures of the calvaria or scalp swelling. Impression: 1. No acute intracranial hemorrhage, no evidence of acute territorial infarction or other acute intr acranial disease process. 2. Redemonstration of right carotid aneurysm. ACT 112: Negative or not required by law. Electronically signed by: Trenton Culver M.D. 03/01/2024 12:19 PM
[2024-03-01] MEDS: ACETAMINOPHEN 500 MG TAB PO STA (12:42)
[2024-03-01] MEDS: LIDOCAINE 5% 1 PATCH TD STA (12:42)
--- NOTE | 2024-03-01 13:55 | Ultrasound Report ---
ULTRASOUND OF THE CAROTID ARTERIES CLINICAL HISTORY: carotid stenosis TECHNIQUE: Real-time, grayscale, and color Doppler sonography of the bilateral carotid arteries is pe rformed. Images are reviewed in the transverse and longitudinal planes. COMPARISON: Comparison is made to CTA neck 08/29/2021 FINDINGS: The carotid arteries are patent bilaterally and demonstrate antegrade flow. There is mild atheroscler otic plaque on the right and mild atherosclerotic plaque on the left. Normal doppler arterial wavefor ms are seen throughout. Velocity measurements are listed below. Common carotid peak systolic velocity (cm/sec): RIGHT: 45 LEFT: 51 ICA peak systolic velocity (cm/sec): RIGHT: 64 LEFT: 53 ICA/CC peak systolic ratio: RIGHT: 1.4 LEFT: 1.0 Antegrade flow was shown in the vertebral arteries. The external carotid arteries are patent. Tortuou s course of the right common carotid artery is noted. IMPRESSION: 1. There is no sonographic evidence of hemodynamically significant stenosis in the right or left car otid arterial system. 2. Antegrade flow is shown in the vertebral arteries. Society of Radiologists in Ultrasound consensus guidelines: Normal: ICA PSV is <125 cm/sec and no plaque or intimal thickening is visible sonographically additional criteria include ICA/CCA PSV ratio <2.0 and ICA EDV <40 cm/sec <50% ICA stenosis: ICA PSV is <125 cm/sec and plaque or intimal thickening is visible sonographically additional criteria include ICA/CCA PSV ratio <2.0 and ICA EDV <40 cm/sec 50-69% ICA stenosis: ICA PSV is 125-230 cm/sec and plaque is visible sonographically additional criteria include ICA/CCA PSV ratio of 2.0-4.0 and ICA EDV of 40-100 cm/sec ?70% ICA stenosis but less than near occlusion: ICA PSV is >230 cm/sec and visible plaque and luminal narrowing are seen at soto-scale and color Dopp ler ultrasound (the higher the Doppler parameters lie above the threshold of 230 cm/sec, the greater the likelihood of severe disease) additional criteria include ICA/CCA PSV ratio >4 and ICA EDV >100 cm/sec ACT 112: Negative or not required by law. Electronically signed by: Trenton Culver M.D. 03/01/2024 1:52 PM
[2024-03-01 14:32] LABS: Thyroid Stimulating Hormone 5.531 uIu/ml (0.300-4.500)
--- NOTE | 2024-03-01 14:45 | Cardiology Consultation ---
Date of Consultation March 01, 2024 Assessment & Plan (1) Fall: (2) Sinus bradycardia: (3) Paroxysmal atrial fibrillation: (4) HTN (hypertension): Plan Patient admitted after a fall this morning. Possible near syncope episode but details unclear. She did not fully lose consciousness or hit her head. Landed on her left knee. No fractures. She has known history of mild sinus bradycardia. She has been taking metoprolol 25 mg daily due to PAF. Upon arrival, HR's were in the 50's. No evidence of high degree AV block or pauses. Will reduce metoprolol to 12.5 mg daily in the evening. Holding parameters set. Consider outpatient ZIO. Monitor on telemetry during admission. Continue Eliquis 5 mg BID for history of CVA and PAF. Echocardiogram pending. She was hypertensive on arrival, but improving upon admission. Monitor. Continue amlodipine. Case discussed with Dr. Stevens I spent a total of 55 minutes on the date of service in preparation, delivery, and documentation of the care provided to this patient, excluding any time spent in the performance of separately billed services. Lilliam Ramos PA-C Department of Cardiology, [facility] This chart was completed in part utilizing Speech Voice Recognition Software. Grammatical errors, random word insertions, pronoun errors, and incomplete sentences are an occasional consequence of this system due to software limitations, ambient noise, and hardware issues. Any formal questions or concerns about the content, text, or information contained within the body of this dictation should be directly addressed to the provider for clarification. Supervising Physician Co-Signing Physician Notes Attending attestation: Case reviewed with the advanced practitioner. I have personally performed a history and physical examination on the patient. I have reviewed the advanced practitioner's documentation on the date of service referenced in note, and I agree with, and take responsibility for the plan of care. Subjective: Patient describes recurrent near syncope episodes with heavy perspiration. Presenting episode was the first episode of justyna syncope. She had been hospitalized for an episode of near syncope in 2020. Sinus bradycardia noted at that time, similar to that which is noted today.] Exam: Cardiovascular regular rhythm, bradycardic, no edema, no murmur Data: EKG performed today 03/01/2024 and interpret independently: Sinus bradycardia 56 bpm with first-degree AV block, NV interval 244 ms, diffuse T wave inversions. Compared to previous tracing dating back to 2021, the T wave inversions are chronic. The NV interval has increased. Echocardiogram performed today revealed mild concentric left ventricular perjury, normal LVEF in the range of 55 to 60%, mild aortic valve sclerosis without stenosis, trace aortic regurgitation Impression/ Plan: Syncope Sinus bradycardia, First-degree AV History of paroxysmal Abnormal EKG Symptoms are not suggestive angina Discussed options with patient and daughter, Charlee. Will observe on telemetry overnight. If unrevealing, will proceed with loop recorder tomorrow. I spent a total of 25 minutes coordinating, documenting, and providing care for this patient excluding time spent in the performance of separately billed services or time spent by another provider. Humble Stevens, DO History of Present Illness Reason for Consultation: Near syncope Requesting Physician: Ruth Hospitalist Attending Physician: Dr. Stevens History of Present Illness Patient is an 83-year-old female who was admitted to [facility] after having a near syncopal episode/fall at [employer]. Patient is unable to tell me exactly what happened. Her daughter had just dropped her off at the entrance and patient had ambulated inside to grab a shopping cart. She was standing/waiting, looking at items and felt herself falling. She tried to grab the shopping cart but this rolled away and she ended up landing on her left knee. She did not hit her head. She does not think she lost consciousness. she is unsure what caused her fall. She does not recall feeling lightheaded or dizzy. No palpitations. She admits to taking her meds this morning with some coffee but did not eat anything. She admits to intermittent episodes at home where she feels hot/flushed/diaphoretic and then feels near syncopal. She has never truly lost consciousness. Metoprolol was reduced in the past due to mild bradycardia with HR's in the 40- 50s. She denies chest pain or dyspnea. No recent palpitations or tachypalpitations. She reports compliance with all medications. Cardiac Problems: 1. Paroxysmal atrial fibrillation 2. Bradycardia 3. Primary hypertension 4. Mixed hyperlipidemia 5. Cerebral aneurysm 6. EMILIA Upon evaluation, patient resting in bed. Daughter at bedside. No dizziness or lightheadedness. She notes left knee pain, which is swollen with ecchymosis. No fractures identified. BP was elevated on arrival, but trending down since admission. EKG demonstrated sinus bradycardia with possible inferior and lateral infarcts, Anterior and lateral T wave inversions. HS troponin negative x1 since admission. Compared with prior outpatient EKG's, T wave inversions are similar. She denies chest pain or dyspnea. She notes cold like symptoms over the lsat few days/week. No fevers or chills. She admits her appetite has been poor. Allergies Allergy/AdvReac Type Severity Reaction Status Date / Time amoxicillin AdvReac Migraine Unverified 03/01/24 11:25 atorvastatin [From Lipitor] AdvReac Muscle Pain Unverified 03/01/24 11:25 levofloxacin [From Levaquin] AdvReac Migraine Unverified 03/01/24 11:25 loratadine [From Claritin-D] AdvReac Migraine Unverified 03/01/24 11:25 losartan [From Cozaar] AdvReac Migraine Unverified 03/01/24 11:25 pseudoephedrine AdvReac Migraine Unverified 03/01/24 11:25 [From Claritin-D] Home Medications Medication Instructions Recorded Confirmed Type apixaban 5 mg tablet (Eliquis) 5 mg PO BID 08/29/21 03/01/24 History atogepant 60 mg tablet (Qulipta) 60 mg PO QAM 08/29/21 03/01/24 History levothyroxine 75 mcg tablet 75 mcg PO QAM 08/29/21 03/01/24 History amlodipine 5 mg tablet 5 mg PO DAILY 03/01/24 03/01/24 History cholecalciferol (vitamin D3) 25 25 mcg PO QAM 03/01/24 03/01/24 History mcg (1,000 unit) tablet (Vitamin D3) fluoxetine 20 mg capsule 20 mg PO DAILY 03/01/24 03/01/24 History levocetirizine 5 mg tablet (Xyzal) 5 mg PO PM 03/01/24 03/01/24 History metoprolol succinate 25 mg 25 mg PO DAILY 03/01/24 03/01/24 History tablet,extended release 24 hr multivitamin 1 tab PO QAM 03/01/24 03/01/24 History pantoprazole 20 mg tablet,delayed 20 mg PO DAILY 03/01/24 03/01/24 History release turmeric 400 mg capsule 400 mg PO QAM 03/01/24 03/01/24 History Patient History Medical History Postoperative abdominal hernia Abdominal wall hernia Stroke Surgical History History of lumpectomy of left breast pt reported benign H/O: hysterectomy Family History Father Heart disease Alzheimer disease Grandmother (Maternal) Breast cancer Social History Smoking Status: Former smoker Hx Alcohol Use: No Hx Substance Use: No Preferred Language: Singaporean Communication Ability: Effective 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 Beliefs That Will Affect Care: None marital status: / Current Living Situation: Family Current Living Situation Comment: lives in apartment How many Children do You have: 4 Other Information That Helps Us Care for You: No Feels Safe at Home: Yes Safety Concerns: Feels Safe At This Time Assistive Devices: Denture - Upper, Denture - Lower, Glasses and Walker Review of Systems Review of Systems: All systems reviewed & are unremarkable except as noted in HPI & below Physical Exam Constitutional: WD/WN, vitals as above average body habitus; no acute distress Neck: trachea midline, no thyromegaly Respiratory: normal respiratory effort Auscultation: no diminished lung sounds, no crackles, no rales and no wheezes Cardiovascular: Rate/Rhythm: regular rate and regular rhythm Heart Sounds: normal S1, normal S2 and + murmur (I/ systolic murmur) Vessels: no JVD Extremities: no edema Musculoskeletal: Knee: + ecchymosis (left knee) Neurologic: PERRL, EOMI, accommodation nl, no face palsy, no dysarthria Results & Data Vital Signs (Past 12 Hours) Vital Signs Temp Pulse Pulse Resp BP BP Pulse Ox 03/01/24 14:18 67 03/01/24 13:26 03/01/24 13:26 36.7 C 49 L 16 130/87 96 03/01/24 12:34 54 L 18 156/83 H 97 03/01/24 11:33 53 L 14 177/107 H 97 03/01/24 10:21 57 L 03/01/24 10:16 57 L 98 03/01/24 10:01 37.0 C 66 18 160/99 H 95 Pulse Ox O2 Del Method O2 Del Method 03/01/24 14:18 03/01/24 13:26 96 Room Air 03/01/24 13:26 Room Air 03/01/24 12:34 03/01/24 11:33 03/01/24 10:21 03/01/24 10:16 Room Air 03/01/24 10:01 Room Air Laboratory Results Cardiac Enzymes 03/01/24 Range/Units 10:06 AST 15 (13-39) U/L Troponin I High Sens 7.8 (0-14) pg/ml CBC 03/01/24 Range/Units 10:06 WBC 6.46 (4.8-10.8) K/ul RBC 4.46 (4.20-5.40) M/uL Hgb 13.1 (12.0-16.0) g/dl Hct 40.0 (37.0-47.0) % Plt Count 200 (130-400) K/uL Neut # (Auto) 4.34 (1.40-6.50) K/uL Lymph # (Auto) 1.16 L (1.20-3.40) K/uL [place] # (Auto) 0.64 H (0.11-0.59) K/uL Eos # (Auto) 0.23 (0.00-0.50) K/uL Baso # (Auto) 0.03 (0.00-0.20) K/uL Comprehensive Metabolic Panel 03/01/24 Range/Units 10:06 Sodium 141 (136-145) mmol/L Potassium 4.2 (3.5-5.1) mmol/L Chloride 108 H (98-107) mmol/L Carbon Dioxide 29 (21-32) mmol/L BUN 19 (6-23) mg/dl Creatinine 0.91 (0.6-1.2) mg/dl Glucose 88 (70-99(Fasting)) mg/dl Calcium 9.0 (8.6-10.3) mg/dl AST 15 (13-39) U/L ALT 11 (7-52) U/L Alkaline Phosphatase 80 (34-104) U/L Total Protein 6.3 (6.0-8.3) gm/dl Albumin 3.5 (3.4-5.0) gm/dl Intake and Output 03/01/24 03/01/24 03/01/24 06:59 14:59 22:59 Intake Total 240 / 240 Balance 240 / 240 Intake: Oral 240 / 240 Other: Weight 78.925 kg Weight Measurement Method Built in [facility] Patient Weight 03/02/24 06:59 Weight 78.925 kg Diagnostic Findings Telemetry reviewed: Sinus bradycardia with HR around 55 bmp. No pauses or high degree AV block. 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 Comparison: None available at the time of this dictation. FINDINGS: No lines and tubes are seen. Calcified and tortuous aorta is seen. The lungs are clear. No evidence of pleural effusion or pneumothorax. IMPRESSION: No acute chest disease. Carotid Doppler Study 03/01/24 11:36 ULTRASOUND OF THE CAROTID ARTERIES CLINICAL HISTORY: carotid stenosis TECHNIQUE: Real-time, grayscale, and color Doppler sonography of the bilateral carotid arteries is performed. Images are reviewed in the transverse and longitudinal planes. COMPARISON: Comparison is made to CTA neck 08/29/2021 FINDINGS: The carotid arteries are patent bilaterally and demonstrate antegrade flow. There is mild atherosclerotic plaque on the right and mild atherosclerotic plaque on the left. Normal doppler arterial waveforms are seen throughout. Velocity measurements are listed below. Common carotid peak systolic velocity (cm/sec): RIGHT: 45 LEFT: 51 ICA peak systolic velocity (cm/sec): RIGHT: 64 LEFT: 53 ICA/CC peak systolic ratio: RIGHT: 1.4 LEFT: 1.0 Antegrade flow was shown in the vertebral arteries. The external carotid arteries are patent. Tortuous course of the right common carotid artery is noted. IMPRESSION: 1. There is no sonographic evidence of hemodynamically significant stenosis in the right or left carotid arterial system. 2. Antegrade flow is shown in the vertebral arteries. Head CT 03/01/24 11:36 CT head/brain wo con CLINICAL HISTORY: syncope Technique: Contiguous axial CT images of the head were acquired from the base of the skull to the vertex without intravenous contrast administration. Images were viewed in brain, subdural and bone windows. Automated dose lowering techniques and/or adjustment according to patient size were utilized for this exam. Comparison: Comparison is made to CT head 08/29/2021 Findings: Areas of decreased attenuation are present in the periventricular and subcortical white matter bilaterally consistent with small vessel ischemic disease. Generalized cerebral atrophy with commensurate enlargement of the ventricles, sulci, and cisterns is also present. There is no acute intracranial hemorrhage or evidence of acute territorial infarction. No shift of the midline structures, mass effect, or extra-axial abnormalities are shown. Atherosclerotic calcifications are present in the intracranial segments of the internal carotid arteries. As the posterior right frontal lobe is unchanged. Previously noted right carotid aneurysm is partially visualized. Imaged portions of the paranasal sinuses and mastoid air cells are clear. The orbits appear normal. There are no acute fractures of the calvaria or scalp swelling. Impression: 1. No acute intracranial hemorrhage, no evidence of acute territorial infarction or other acute intracranial disease process. 2. Redemonstration of right carotid aneurysm. ACT 112: Negative or not required by law. Electronically signed by: Trenton Culver M.D. 03/01/2024 12:19 PM Prior echo reviewed from August 2021: Normal LVEF at 60-65% LA is moderately dilated RV systolic function is normal aortic valve sclerosis without stenosis Medications Administered Current Inpatient Medications Acetaminophen (Acetaminophen 325 Mg Tab) 650 mg PO Q4H PRN PRN Reason: Pain or Fever Stop: 03/31/24 13:25 Amlodipine Besylate (Amlodipine Besylate 5 Mg Tab) 5 mg PO DAILY [facility] Stop: 04/01/24 08:59 Apixaban (Apixaban 5 Mg Tablet) 5 mg PO BID [facility] Stop: 04/01/24 08:59 Fluoxetine HCl (Fluoxetine Hcl 20 Mg Cap) 20 mg PO DAILY [facility] Stop: 04/01/24 08:59 Levothyroxine Sodium (Levothyroxine Sodium 75 Mcg Tablet) 75 mcg PO DAILYBB [facility] Stop: 04/01/24 06:29 Lidocaine (Lidocaine 5% 1 Patch) 1 patch TD QAM [facility] Stop: 04/01/24 08:59 Miscellaneous (Remove Lidoderm Patch) 1 each N/A DAILY@2100 [facility] Stop: 12/11/24 21:01 Miscellaneous (Remove Lidoderm Patch) 1 each N/A DAILY@2100 [facility] Stop: 03/31/24 20:59 Pantoprazole Sodium (Pantoprazole 40 Mg Tab) 40 mg PO DAILY [facility] Stop: 04/01/24 08:59 Vitamin D (Cholecalciferol 25 Mcg (1000 Units) Tab) 25 mcg PO QAM [facility] Stop: 04/01/24 08:59 (1) Fall Encounter type: initial encounter Qualified Code(s): W19.XXXA - Unspecified fall, initial encounter (4) HTN (hypertension) Hypertension type: primary hypertension Qualified Code(s): I10 - Essential (primary) hypertension
[2024-03-01 15:07] LABS: T4 Free Thyroxine 1.09 ng/dl (0.61-1.60)
--- NOTE | 2024-03-01 16:21 | Electrocardiogram Report ---
Test Reason : Blood Pressure : */* mmHG Vent. Rate : 56 BPM Atrial Rate : 56 BPM P-R Int : 244 ms QRS Dur : 90 ms QT Int : 442 ms P-R-T Axes : 60 -55 -28 degrees QTcB Int : 426 ms Sinus bradycardia with 1st degree A-V block Left axis deviation Low voltage QRS Old Inferior infarct (cited on or before 01-Sep-2021) Old Anterolateral infarct (cited on or before 01-Sep-2021) Abnormal ECG When compared with ECG of 01-Sep-2021 10:17, NC interval has increased probable lead placement error corrected Confirmed by Dustin Mondragon ([id number]) on 03/01/2024 4:21:21 PM Referred By: REFERRED SELF Confirmed By: Dustin Mondragon
[2024-03-01] MEDS: METOPROLOL SUCC 25MG EXT REL TAB PO SCH (20:52)
[2024-03-01] MEDS: SODIUM CHLORIDE 0.45 % 1,000 ML IV ONE (21:00)
[2024-03-01] MEDS ORDERED: APIXABAN 5 MG TABLET PO SCH (21:00)
[2024-03-01] MEDS: ACETAMINOPHEN 325 MG TAB PO PRN (21:09)
[2024-03-02 00:26] LABS: Appearance Urine Clear (Clear); Bacteria Urine Automated None Seen (None Seen); Bilirubin Urine Negative (Negative); Blood Urine Negative (Negative); Cast Urine Automated 0-2 /lpf (0-2); Color Urine Yellow; Glucose Urine UA Negative (Negative); Ketones Urine Trace (Negative); Leukocyte Esterase Urine Trace (Negative); Nitrite Urine Negative (Negative); Protein Urine Negative (Negative); RBC Urine Automated 0-2 /hpf (0-2); Specific Gravity Urine 1.019 (1.000-1.030); Urobilinogen Urine Negative (Negative); WBC Urine Automated 0-5 /hpf (0-5); pH Urine 5.5 (4.5-7.5)
[2024-03-02] MEDS: LEVOTHYROXINE SODIUM 75 MCG TABLET PO SCH (06:00)
[2024-03-02] MEDS: FLUoxetine HCL 20 MG CAP PO SCH (07:41)
[2024-03-02] MEDS: PANTOprazole 40 MG TAB PO SCH (07:41)
[2024-03-02] MEDS: CHOLECALCIFEROL 25 MCG (1000 UNITS) TAB PO SCH (07:41)
[2024-03-02] MEDS: amLODIPine BESYLATE 5 MG TAB PO SCH (07:41)
[2024-03-02 07:44] LABS: Hematocrit (blood only) 32.2 % (37.0-47.0); Hemoglobin 10.7 g/dl (12.0-16.0); Mean Corpuscular Hemoglobin 29.5 pg (25.0-34.0); Mean Corpuscular Hgb Conc 33.2 g/dL (32.0-36.0); Mean Corpuscular Volume 88.7 fL (80.0-100.0); Mean Platelet Volume 10.5 fL (9.4-12.4); Platelet Count 181 K/uL (130-400); RDW Coefficient of Variation 13.1 % (11.5-14.5); RDW Standard Deviation 42.6 fL (36.4-46.3); Red Blood Count 3.63 M/uL (4.20-5.40); White Blood Count 7.17 K/ul (4.8-10.8)
[2024-03-02 08:07] LABS: Albumin Globulin Ratio 1.4 (0.9-2); BUN Creatinine Ratio 20.7 (10-20); Bilirubin,Total 0.5 mg/dl (0.2-1.0); Calcium 8.3 mg/dl (8.6-10.3); Creatinine Clr Calc Pharmacy 41.5 ml/min; Globulin 2.2 gm/dl (2.5-4.0); Magnesium 1.8 mg/dl (1.7-2.4); Potassium 3.7 mmol/L (3.5-5.1); Total Protein 5.2 gm/dl (6.0-8.3)
[2024-03-02] MEDS: LIDOCAINE 5% 1 PATCH TD SCH (08:27)
[2024-03-02] MEDS ORDERED: METOPROLOL SUCC 25MG EXT REL TAB PO SCH (09:00)
[2024-03-02] MEDS ORDERED: PANTOprazole 40 MG TAB PO SCH (09:00)
[2024-03-02] MEDS ORDERED: APIXABAN 5 MG TABLET PO SCH (09:00)
[2024-03-02 11:37] VITALS: RESP 20; O2SAT 97
--- NOTE | 2024-03-02 12:44 | Electrocardiogram Report ---
Test Reason : Blood Pressure : */* mmHG Vent. Rate : 60 BPM Atrial Rate : 60 BPM P-R Int : 196 ms QRS Dur : 90 ms QT Int : 438 ms P-R-T Axes : 49 -49 -16 degrees QTcB Int : 438 ms Normal sinus rhythm Left axis deviation Low voltage QRS Incomplete right bundle branch block Old Inferior infarct (cited on or before 01-Sep-2021) Old Anterolateral infarct Nonspecific T wave abnormality Anterior leads When compared with ECG of 01-Mar-2024 10:07, No significant change Confirmed by Dustin Mondragon ([id number]) on 03/02/2024 12:43:54 PM Referred By: REFERRED SELF Confirmed By: Dustin Mondragon
--- NOTE | 2024-03-02 14:08 | Electrophysiology Report ---
Date of Service March 02, 2024 Electrophysiology Procedure Electrophysiology Procedure Report The procedure performed: Implantation of patient activated loop recorder Staff radiopharmacist: Stevenson Mancilla MD Indication: The patient is an 83-year-old woman with a history of intermittent syncope of unknown etiology. Procedure in detail: The patient was informed of the risks benefits and alternatives to the intended procedure. They understood such and wished to proceed. The patient was taken to the electrophysiology suite where the upper chest area was prepped and draped in the usual sterile fashion. An area left lateral to the sternum in the 4th intercostal space was subsequently anesthetized using subcutaneous administration of lidocaine solution. A small incision was made at this site and implantation of the loop recorder was accomplished using a proprietary impl antation tool. The small incision was subsequently closed using a single 4 0 Vicryl suture. Steri-Strips and a sterile dressing were then applied. The patient tolerated the procedure well. There were no immediate complications. The device was tested noninvasively prior to conclusion of the procedure. Equipment used: Patient activated loop recorder: [employer]. Model number [id number]. Serial number [id number] Electrophysiology codes Implantable Monitors Procedure 1: Implantable Monitors: [id number] Loop Recorder Implant
[2024-03-02 15:13] VITALS: TEMP 97.9
--- NOTE | 2024-03-02 16:09 | Discharge Summary ---
Discharge Summary Date of Service March 02, 2024 Principal Dx & Hospital Course #1 = Principal Diagnosis (1) Syncope: (2) Fall: (3) Drug-induced bradycardia: (4) Contusion of left knee: (5) Left leg cellulitis: (6) Paroxysmal atrial fibrillation: (7) Hypothyroidism: (8) HTN (hypertension): Plan Patient is an 83-year-old female presented to the ED after having a syncopal event and fall while shopping at [employer]. In the ED she was noted to have some sinus bradycardia into the 40s however it was asymptomatic in the ED. She was referred for further evaluation. Patient was monitored in the hospital. Her metoprolol dose was decreased in half. Cardiology consultation was obtained. She did not have any significant pauses here on telemetry monitoring. Heart rates were in the 50s to low 60s after decreasing her metoprolol dose. Cardiology recommended a loop recorder to be placed since she had a very similar episode about 2 years ago. Patient underwent placement of a loop recorder while here in the hospital. And she tolerated that procedure well. Patient did have a significant contusion of her left knee where she fell. Significant ecchymosis and swelling. Also has some redness down her anterior left lower leg possibly some early cellulitis versus inflammation from the contusion. Started on some oral Keflex for possible early cellulitis. She was seen by therapies and is doing well able to march in place. Recommended that she could return home. Patient will be discharged home on decreased dose of metoprolol. She will follow-up with cardiology and her PCP. Given instructions on how to trigger recordings of her loop recorder. Notes For Next Care Provider Continue to follow with cardiology Medication Changes From Visit Metoprolol dose decreased Admission HPI Per Admitting Provider The patient is an 83-year-old female with a past medical history of bradycardia, PAF, on Eliquis, HTN, carotid aneurysm right, syncopal episodes, splenic infarct, hypothyroidism, depression, GERD, migraines who presents to the ED on 03/01/2024 with complaints of passing out at the grocery store today. Patient's daughter reports she dropped her off at [employer] this morning. The patient reports while she was shopping she passed out. It is unclear how long the patient was down for. Patient denies any dizziness but does remember feeling some lightheadedness prior to passing out. She reports compliance with her medications. On exam, the patient denies any chest pain/shortness of breath/nausea/vomiting/diarrhea/abdominal pain. Patient's daughter is at bedside and reports the patient is usually in sinus rhythmsinus bradycardia in the 50s sometimes in the 40s, patient denies any heart palpitations or blurry vision. Patient was hospitalized for similar symptoms in 2021 and her metoprolol was temporarily held and she has been back on her metoprolol for about 2 years now. Does have a history of a stroke and had some residual slurred speech but otherwise has no weakness no other focal deficits. Has a history of hernia repair 2 years ago and she was being considered for Watchman device prior to this. That is not being pursued at this time. Patient does not smoke, denies illicit drug use, denies alcohol use. She does report a recent viral illness and taking cough medicine and she feels that her cough is improving. Labs are fairly unremarkable on arrival., Troponin was negative, no acute EKG changes recent viral illness - taking cough medicine - dry cough - getting better Head CT was negative, patient does not believe she struck her head with the fall, denies any headaches, neuroexam within normal limits Knee x-ray showed soft tissue swellingno acute fracture Chest x-ray was negative The patient will be admitted for further syncope workup Admission Exam Per Admitting Provider See H&P Discharge Exam Constitutional: Alert, no acute distress HEENT: Mucous membranes moist. Lungs: Clear to auscultation, decreased, no wheezes rales or rhonchi CV: S1-S2, regular Abdomen: Soft, nontender, nondistended Extremities: Trace pretibial edema Musculoskeletal: Contusion over left patella and anterior tibial tuberosity. Ecchymosis, edema and some redness along the anterior tibia. Some tenderness to palpation, some mild warmth. Neuro: No focal deficits Psych: Cooperative, normal mood Updated Medication List Medication Instructions Recorded Confirmed Type apixaban 5 mg tablet (Eliquis) 5 mg PO BID 08/29/21 03/01/24 History atogepant 60 mg tablet (Qulipta) 60 mg PO QAM 08/29/21 03/01/24 History levothyroxine 75 mcg tablet 75 mcg PO QAM 08/29/21 03/01/24 History amlodipine 5 mg tablet 5 mg PO DAILY 03/01/24 03/01/24 History cholecalciferol (vitamin D3) 25 25 mcg PO QAM 03/01/24 03/01/24 History mcg (1,000 unit) tablet (Vitamin D3) fluoxetine 20 mg capsule 20 mg PO DAILY 03/01/24 03/01/24 History levocetirizine 5 mg tablet (Xyzal) 5 mg PO PM 03/01/24 03/01/24 History multivitamin 1 tab PO QAM 03/01/24 03/01/24 History pantoprazole 20 mg tablet,delayed 20 mg PO DAILY 03/01/24 03/01/24 History release turmeric 400 mg capsule 400 mg PO QAM 03/01/24 03/01/24 History cephalexin 500 mg capsule 500 mg PO TID 5 days #15 caps 03/02/24 Rx lidocaine 5 % topical patch 1 patch transdermal QAM #10 ea 03/02/24 Rx metoprolol succinate 25 mg 12.5 mg (1/2 x 25 mg) PO HS #30 03/02/24 Rx tablet,extended release 24 hr tabs Hospital Stay Data Consultations 03/01/24 11:23 ED Decision to Admit Stat 03/01/24 13:26 Consult Cardiology Routine Procedures Performed Operation Date: 03/02/24 12:00 Actual Procedures p Implant Cardiac Event Recorder - Stevenson Mancilla MD Diagnostic Imagining Performed 03/01/24 11:[address] [CT head/brain wo con] Stat US carotid doppler BI Urgent Reviewed imaging, laboratory and diagnostic studies. Pertinent findings as below. Head CT no acute findings Carotid Doppler no significant stenosis Knee x-ray soft tissue swelling no fracture Urinalysis unremarkable Electrolytes stable Creatinine 0.87 WBCs 7.1 Hemoglobin 10.7, stable Echocardiogram shows ejection fraction of 55 to 60%, normal systolic function mild aortic sclerosis. I refer you to the full report for details Personally reviewed EKG from 03/02/2024: Normal sinus rhythm 60 bpm no significant changes from previous Pending Results Patient Have Any Pending Studies at Discharge: No Discharge Instructions Given to Patient (Per Discharging Provider) Follow instructions you received with the loop recorder Follow-up with cardiology Total Time Total Time Spent Total Time Spent (In Minutes): 36
[2024-03-02] MEDS: cephALEXin 500 MG CAP PO SCH (16:10)
--- NOTE | 2024-03-02 16:28 | Communication Note ---
Date of Service: March 02, 2024 By CMS guidelines, a determination that the admission or continued stay is not medically necessary has been made by a member of the UR committee and a ph ysician for this hospital stay, therefore a Code 44 will be completed and the Inpatient admission will be changed to outpatient.
[2024-03-02 16:47] VITALS: BP 105/74; PULSE 51
--- NOTE | 2024-03-02 17:31 | Cardiology Progress Note ---
Date of Service March 02, 2024 Assessment & Plan (1) Fall: (2) Sinus bradycardia: (3) Paroxysmal atrial fibrillation: (4) HTN (hypertension): Plan Longstanding history of near syncope events, presenting symptoms concerning for syncope in a patient that certainly has risk for underlying conduction system disease. She has an ongoing indication for metoprolol given her history of atrial fibrillation and I think trying to maintain sinus rhythm is important. Patient has undergone loop recorder implantation. She has been instructed with regards to how to send asymptomatic patient triggered event. Will arrange follow-up with our pacemaker clinic and clinical follow-up as well. Patient stable from a cardiac perspective for discharge. Admission and Anticipated Discharge Date Admission Date: March 01, 2024 Subjective Patient seen in cardiology follow-up after implantation of [employer] loop recorder. Patient without complaints. Telemetry earlier in the day revealed sinus bradycardia in the 50s, up to the 70s this evening. Physical Exam Constitutional: WD/WN, vitals as above average body habitus; no acute distress Neck: trachea midline, no thyromegaly Respiratory: normal respiratory effort Auscultation: no diminished lung sounds, no crackles, no rales and no wheezes Cardiovascular: Rate/Rhythm: regular rate and regular rhythm Heart Sounds: normal S1, normal S2 and + murmur (I/ systolic murmur) Vessels: no JVD Extremities: no edema Musculoskeletal: Knee: + ecchymosis (left knee) Neurologic: PERRL, EOMI, accommodation nl, no face palsy, no dysarthria Results & Data Vital Signs (Past 12 Hours) Vital Signs Temp Pulse Pulse Pulse Resp BP BP 03/02/24 16:59 36.6 C 51 L 64 20 124/87 105/74 03/02/24 16:47 36.6 C 51 L 64 20 124/87 105/74 03/02/24 15:12 36.6 C 64 20 124/87 03/02/24 14:35 71 03/02/24 14:03 03/02/24 11:36 36.5 C 71 20 105/74 03/02/24 07:40 36.5 C 57 L 18 148/78 H 03/02/24 07:37 03/02/24 07:13 57 L Pulse Ox Pulse Ox O2 Del Method O2 Flow Rate 03/02/24 16:59 97 03/02/24 16:47 97 12/12/24 15:12 97 Room Air 03/02/24 14:35 03/02/24 14:03 97 0 03/02/24 11:36 97 Room Air 03/02/24 07:40 96 Room Air 03/02/24 07:37 Room Air 03/02/24 07:13 (1) Fall Encounter type: initial encounter Qualified Code(s): W19.XXXA - Unspecified fall, initial encounter (4) HTN (hypertension) Hypertension type: primary hypertension Qualified Code(s): I10 - Essential (primary) hypertension
--- OUTSIDE RECORDS SUMMARY | 2024-03-02 20:35 | External Medical Summary | Summary of Care ---
Author Name Unknown Organization [facility] Address [address] [place] [address] Phone [phone] Care Team Providers Care Battery Tester Name Role Phone Temi Santos MD Primary Care Provider [phone] Reason for Visit * Reason Comments eRx-Medication Refill Encounter Details Date Type Department Care Team (Late st Contact Info) Description 02/20/2024 Refill Family Practice [facility] [address] [facility] [place] [address] Temi Santos MD [address] [facility] [place] [address] Allergies Active Allergy Reactions Criticality Noted Date Comments Amoxicillin Low 08/29/2021 Other reaction(s): Migraine migraine Atorvastatin Low 08/29/2021 Other reaction(s): Muscle Pain Myalgia Levofloxacin Low 08/29/2021 Other reaction(s): Migraine Lisinopril Low 10/02/2021 Dry cough Loratadine 08/29/2021 Other reaction(s): Migraine Losartan Low 08/29/2021 Other reaction(s): Migraine migraines Pseudoephedrine Low 08/29/2021 Other reaction(s): Migraine migraine documented as of this encounter (statuses as of 02/20/2024) Medications Simethicone 80 MG Oral Tablet Chewable Take 1 Tablet by mouth every 6 hours as needed for Gas. Active One-A-Day Womens 50 Plus Oral Tablet Take 1 Tablet by mouth every morning. Active Vitamin D3 25 MCG (1000 UT) Oral Capsule (Cholecalciferol) Take 1 Capsule by mouth in the morning. Active Benefiber On The GO Oral Powder Take 1 Package by mouth every morning. Active Levocetirizine Dihydrochloride 5 MG Oral Tablet (Xyzal Allergy 24HR) Take 1 Tablet by mouth every evening. Active amLODIPine Besylate 5 MG Oral Tablet (Norvasc)Indication s:Hypertension goal BP (blood pressure) < 140/80,Mitral valve insufficiency, unspecified etiology,Paroxysmal atrial fibrillation (HCC) Take 1 Tablet by mouth in the morning. 90 Tablet 3 08/18/19 24 Active Metoprolol Succinate ER 25 MG Oral Tablet Extended Release 24 Hour (toPROL XL)Indications:Hype rtension goal BP (blood pressure) < 140/80,Mitral valve insufficiency, unspecified etiology,Paroxysmal atrial fibrillation (HCC) Take 1 Tablet by mouth in the morning. 90 Tablet 3 08/18/19 24 Active Qulipta 60 MG Oral TabletIndications:C hronic migraine w/o aura, not intractable, w/o stat migr Take 1 Tablet by mouth in the morning. 30 Tablet 3 01/05/20 24 Active Ondansetron 4 MG Oral Tablet Disintegrating (Zofran)Indications :Nausea without vomiting One pill by mouth every 12 hours as needed for Nausea. 20 Tablet 3 01/07/20 24 Active Turmeric 500 MG Oral Capsule Take 1 Capsule by mouth in the morning. Active Eliquis 5 MG Oral Tablet Take 1 Tablet by mouth in the morning and 1 Tablet before bedtime. 180 Tablet 1 01/10/20 24 Active FLUoxetine HCl 20 MG Oral Capsule (PROzac)Indications :Persistent depressive disorder Take 1 Capsule by mouth at bedtime. 90 Capsule 1 01/11/20 24 Active Pantoprazole Sodium 20 MG Oral Tablet Delayed Release (Protonix) Take 2 Tablets by mouth in the morning. 180 Tablet 3 01/12/20 24 Active Levothyroxine Sodium 75 MCG Oral Tablet (Levoxyl) TAKE 1 TABLET BY MOUTH IN THE MORNING 90 Tablet 2 02/20/20 24 Active Levothyroxine Sodium 75 MCG Oral Tablet (Levoxyl) TAKE 1 TABLET BY MOUTH IN THE MORNING 90 Tablet 11/23/19 24 024 Discontinued documented as of this encounter (statuses as of 02/20/2024) Active Problems Problem Noted Date Diagnosed Date Chronic kidney disease, stage 3a 01/03/2024 Overview: Per CKD protocol Benign hypertension with stage 3a chronic kidney disease 11/29/2023 Overview: Per CKD protocol Diarrhea following gastrointestinal surgery 10/2023 EMILIA (obstructive sleep apnea) 09/02/2022 Paraesophageal hernia 04/23/2022 Acquired hypothyroidism 04/21/2022 Migraine without aura 04/21/2022 History of CVA (cerebrovascular accident) 2022 Persistent depressive disorder 04/21/2022 Statin intolerance 04/21/2022 Cerebral aneurysm 10/02/2021 Mixed hyperlipidemia 10/02/2021 Paroxysmal atrial fibrillation 10/02/2021 Bradycardia 10/02/2021 documented as of this encounter (statuses as of 02/20/2024) Resolved Problems Problem Noted Date Diagnosed Date Resolved Date Benign hypertension with CKD (chronic kidney disease) stage III 04/22/2022 12/02/2023 Overview: Per CKD protocol Primary hypertension 10/02/2021 023 documented as of this encounter (statuses as of 02/20/2024) Immunizations Name Administration Dates Next Due Pneumococcal Conjugate Vacc, 13 Valent (Prevnar) 10/08/2015 Seasonal Influenza Virus Vac cine, Unspecified Formulation 01/08/2020,01/16/2019,01/14/2018,2016,12/26/2014,01/19/2014,12/09/2012 Varicella Zoster Vaccine (Adult) 10/08/2015 documented as of this encounter Social History Tobacco Use Types Packs/Day Years Used Date Smoking Tobacco: Former Cigarettes 1 40 1 963 - 2002 Passive Smoke Exposure: Past Smokeless Tobacco: Never Alcohol Use Standard Drinks/Week Comments Never 0 (1 standard drink = 0.6 oz pur e alcohol) PHQ-2 Answer Date Recorded PHQ Adult Total Score 0 09/02/2022 Hunger Vital Sign Answer Date Recorded Within the past 12 months, y ou worried that your food would run out before you got the money to buy more. Never true 04/26/19 24 Within the past 12 months, t he food you bought just didn't last and you didn't have money to get more. Never true 04/26/2023 Childcare Answer Date Recorded Do you feel overwhelmed with taking care of a child, family member or friend? No 04/26/2023 Does your family need help f inding childcare? (Household - for ages 0-17 years) Not on file 04/26/2023 Clothing Answer Date Recorded Have you been unable to get clothing when it was really needed? No 04/26/2023 Is your family able to get c lothes or diapers when needed? (Household - for ages 0-17 years) Not on file 04/26/2023 Personal Safety Answer Date Recorded Do you feel unsafe or have concerns for your saf ety? No 04/26/2023 Do you have concerns for you r family's safety? (Household - for ages 0-17 years) Not on file 04/26/2023 Utilities Answer Date Recorded Do you have trouble paying y our heating, water, or electric bill? No 04/26/2023 Is your family able to pay t he heat, water, or electric bill? (Household - for ages 0-17 years) Not on file 04/26/2023 Does your family have access to good internet? (Household - for ages 0-17 years) Not on file 04/26/2023 Employment Status Answer Date Recorded Are you unemployed or without regular income? No 04/26/2023 Does the household have a re gular source of income? (Household - for ages 0-17 years) Not on file 04/26/2023 Social Connections Answer Date Recorded How often do you feel lonely or isolated from th ose around you? Rarely 04/26/2023 Financial Resource Strain Answer Date R ecorded Do you have any trouble payi ng for your medications, or do you think you might in the future? No 04/26/2023 Does your family have troubl e paying for medicine? (Household - for ages 0-17 years) Not on file 04/26/2023 Transportation Needs Answer Date Record ed READ ONLY Do you have troubl e getting a ride to medical visits or work? Never True 04/26/2023 Does your family have a hard time getting a ride to doctors visits? (Household - for ages 0-17 years) Not on file 04/26/2023 Has lack of transportation k ept you from medical appointments, meetings, work, or from getting things needed for daily living? Check all that apply. (Adult - for ages 18 years and over) Not on file 04/26/2023 Do you (or your family) have trouble finding or paying for a ride (transportation)? (Household - for ages 0-17 years) Not on file 04/26/2023 Housing Stability Answer Date Recorded Do you currently live in a s helter or have no steady place to sleep at night? No 04/26/2023 READ ONLY Do you think you a re at risk of becoming homeless? No 04/26/2023 Does your family worry about paying for your home or becoming homeless? (Household - for ages 0-17 years) Not on file 0 04/26/2023 Are you homeless or worried that you might be in the future? (Adult - for ages 18 years and over) Not on file Are you (or your family) zach eless or worried that you might be in the future? (Household - for ages 0-17 years) Not on file Food Insecurity Answer Date Recorded Do you need food for this week? No 04/26/2023 Are you able to get enough f ood for your family? (Household - for ages 0-17 years) Not on file 04/26/2023 Does your family need food t his week? (Household - for ages 0-17 years) Not on file 04/26/2023 Do you always have enough fo od for your family? (Household - for ages 0-17 years) Not on file 04/26/2023 Comments No Sex and Gender Information Value Date Recorded Sex Assigned at Female 09/02/2022 8:48 AM EDT Legal Sex Female 11:20 AM EDT Gender Identity Not on file Sexual Orientation Straight 09/02/2022 8: 48 AM EDT documented as of this encounter Functional Status * Are you deaf or do you have serious difficulty hearing? Answer Date of Assessment Author No 04/23/2022 2:00 PM Xiomara Guzman RN * Are you blind or do you have serious difficulty seeing, even when wearing glasses? Answer Date of Assessment Author No 04/23/2022 2:00 PM Xiomara Guzman RN * Do you have serious difficulty walking or climbing stairs? (5 years old or older) Answer Date of Assessment Author No 04/24/2022 12:13 PM Michaela Espana RN * Do you have difficulty dressing or bathing? (5 years old or older) Answer Date of Assessment Author No 04/23/2022 2:00 PM Xiomara Guzman RN * Because of a physical, mental, or emotional condition, do you have difficulty doing errands alone such as visiting a doctors office or shopping? (15 years old or older) Answer Date of Assessment Author Yes 04/23/2022 2:00 PM Xiomara Guzman RN documented as of this encounter Mental Status * Because of a physical, mental, or emotional condition, do you have serious difficulty concentrating, remembering, or making decisions? (5 years old or older) Answer Entry Date Author No 04/23/2022 2:00 PM Xiomara Guzman RN documented in this encounter Miscellaneous Notes * Telephone Encounter - Hortencia Headley [facility] - 02/20/2024 10:06 AM ESTSigned Prescriptions: Disp Refills Levothyroxine Sodium 75 MCG Oral Tablet (L*90 Tab*2 Sig: TAKE 1 TABLET BY MOUTH IN THE MORNINGAuthorizing Provider: Adelso SANTOS User: HORTENCIA HEADLEY-- documented in this encounter Plan of Treatment Upcoming Encounters Date Type Department Care Team (Late st Contact Info) Description 06/23/2024 11:00 AM EDT [facility] [address] [place], [place] [id number] Temi Santos MD [address] [place] [address] 07/14/2024 10:00 AM EDT Office Visit Neurology [facility] [address] [facility] [place] [address] Hanny Stallings MD [address] [facility] [place] [address] 07/19/2024 9:30 AM EDT Office Visit Cardiology, [facility] [address] [place] [address] Allyson Lackey CRNP [address] [place] [address] Health Maintenance Due Date Last Done Comments DXA Scan 2005 Adult Wellness Visit 2006 Pneumococcal Vaccine: 65+ Years (2 of 2 - PPSV23 or PCV20) 10/07/2016 10/08/2015 Depression Monitoring 09/03/2023 09/02/2022 COVID-19 Vaccine ( season) 2023 Influenza Vaccine (FLU shot) (#1) 2023 01/08/2020, 01/08/2020, 01/16/2019, Additional history exists GFR 05/23/2024 11/24/2023, 11/20, 10/20/2022, Additional history exists Albumin/Creatinine Ratio 11/23/2024 11/24/2023, 03/24 CKD HGB USE SMARTSET 67352 11/23/202411/23, 11/24/2023, 12/03/2022, Additional history exists CKD PHOS USE SMARTSET [id number] 11/23/2024 11/24/2023, 0 10/20/2022 TSH 11/23/2024 11/24/2023, 08/0 03/2022, 04/21/2022 Zoster Vaccines Discontinued 10/08/2015 DTap/Tdap Vaccines Discontinued HPV (Gardasil) Vaccine Aged Out No lo nger eligible based on patient's age to complete this topic Hepatitis B Vaccine Aged Out No longe r eligible based on patient's age to complete this topic MENINGOCOCCAL (MENACTRA/MENVEO) Aged Out No longer eligible based on patient's age to complete this topic documented as of this encounter Medical Devices Not on filedocumented as of this encounter Advance Directives * Full Code (Latest Code Status on File) Date Activated Date Inactivated Comments 04/23/2022 10:16 AM 04/25/2022 6:55 PM This order re flects the patients wishes and were consensually agreed upon. Question Answer Comments Discussion of Advance Direct elma occurred with: Not Discussed due to patient's condition * Full Code Date Activated Date Inactivated Comments 04/23/2022 6:54 AM 04/23/2022 10:16 AM Question Answer Comments Discussion of Advance Directives occurred with: Patient Care Teams Battery Tester Relationship Specialty Start Date End Date Temi Santos MD [address] [place] [address] PCP - General Family Medicine 05/17/23 documented as of this encounter
--- OUTSIDE RECORDS SUMMARY | 2024-03-02 20:36 | External Medical Summary | Summary of Care ---
Author Name Unknown Organization [facility] Address [address] [place] [address] Phone [phone] Care Team Providers Care Manager Garden Name Role Phone Temi Santos MD Primary Care Provider [phone] Reason for Visit * Reason Comments Outpatient Testing Encounter Details Date Type Department Care Team (Late st Contact Info) Description 11/24/2023 9:00 AM EDT Laboratory Laboratory, [facility] [address] [facility] [place] [id number] [facility] [address] [facility] [place] [address] EMILIA (obstructive sleep apnea); Benign hypertension with CKD (chronic kidney disease) stage III (HCC); Acquired hypothyroidism; Mixed hyperlipidemia; Chronic kidney disease, unspecified CKD stage Allergies Active Allergy Reactions Criticality Noted Date Comments Amoxicillin Low 08/29/2021 Other reaction(s): Migraine migraine Atorvastatin Low 08/29/2021 Other reaction(s): Muscle Pain Myalgia Levofloxacin Low 08/29/2021 Other reaction(s): Migraine Lisinopril Low 10/02/2021 Dry cough Loratadine 08/29/2021 Other reaction(s): Migraine Losartan Low 08/29/2021 Other reaction(s): Migraine migraines Pseudoephedrine Low 08/29/2021 Other reaction(s): Migraine migraine documented as of this encounter (statuses as of 11/24/2023) Medications Medication Sig Dispensed Refills Start Date End Date Status Simethicone 80 MG Oral Tablet Chewable Take 1 Tablet by mouth every 6 hours as needed for Gas. Active Pantoprazole Sodium 20 MG Oral Tablet Delayed Release (Protonix) Take 2 Tablets by mouth in the morning. 180 Tablet 3 04/02/2023 Active One-A-Day Womens 50 Plus Oral Tablet [...] 1 Tablet by mouth every evening. Active Qulipta 60 MG Oral TabletIndications:Chron ic migraine w/o aura, not intractable, w/o stat migr Take 1 Tablet by mouth in the morning. 30 Tablet 3 08/17/2023 Active Ondansetron 4 MG Oral Tablet Disintegrating (Zofran) One pill by mouth every 12 hours as needed for Nausea. 20 Tablet 3 08/18/2023 Active Eliquis 5 MG Oral Tablet Take 1 Tablet by mouth in the morning and 1 Tablet before bedtime. 180 Tablet 1 08/18/2023 Active amLODIPine Besylate 5 MG Oral Tablet (Norvasc)Indications:Hy pertension goal BP (blood pressure) < 140/80,Mitral valve insufficiency, unspecified etiology,Paroxysmal atrial fibrillation (HCC) Take 1 Tablet by mouth in the morning. 90 Tablet 3 08/18/2023 Active Metoprolol Succinate ER 25 MG Oral Tablet Extended Release 24 Hour (toPROL XL)Indications:Hyperten kings goal BP (blood pressure) < 140/80,Mitral valve insufficiency, unspecified etiology,Paroxysmal atrial fibrillation (HCC) Take 1 Tablet by mouth in the morning. 90 Tablet 3 08/18/2023 Active FLUoxetine HCl 20 MG Oral Capsule (PROzac)Indications:Per sistent depressive disorder Take 1 capsule by mouth at bedtime 90 Capsule 1 10/12/2023 Active Levothyroxine Sodium 75 MCG Oral Tablet (Levoxyl) TAKE 1 TABLET BY MOUTH IN THE MORNING 90 Tablet 11/23/2023 Active documented as of this encounter (statuses as of 11/24/2023) Active Problems Problem Noted Date Diagnosed Date Diarrhea following gastrointestinal surgery 10/2023 EMILIA (obstructive sleep apnea) 09/02/2022 Paraesophageal hernia 04/23/2022 Benign hypertension with CKD (chronic kidney disease) stage III 04/22/2022 Acquired hypothyroidism 04/21/2022 Migraine without aura 04/21/2022 History of CVA (cerebrovascular accident) 2022 Persistent depressive disorder 04/21/2022 Statin intolerance 04/21/2022 Cerebral aneurysm 10/02/2021 Mixed hyperlipidemia 10/02/2021 Paroxysmal atrial fibrillation 10/02/2021 Bradycardia 10/02/2021 documented as of this encounter (statuses as of 11/24/2023) Resolved Problems Problem Noted Date Diagnosed Date Resolved Date Primary hypertension 10/02/2021 023 documented as of this encounter (statuses as of 11/24/2023) Immunizations Name Administration Dates Next Due Pneumococcal Conjugate Vacc, 13 Valent (Prevnar) 10/08/2015 Seasonal Influenza Virus Vac cine, Unspecified Formulation 01/08/2020,01/16/2019,01/14/2018,2016,12/26/2014,01/19/2014,12/09/2012 Varicella Zoster Vaccine (Adult) 10/08/2015 documented as of this encounter Social History Tobacco Use Types Packs/Day Years Used Date Smoking Tobacco: Former Cigarettes 1 40 1 963 - 2003 Passive Smoke Exposure: Past Smokeless Tobacco: Never [...] No 04/26/2023 Does the household have a [facility]? (Household - for ages [...] ages 0-17 years) Not on file 04/26/2023 Sex and Gender Information Value Date Recorded Sex Assigned at Female 09/02/2022 8:48 AM EDT Gender Identity Not on file Sexual Orientation Straight 09/02/2022 8: 48 AM EDT Job Start Date Occupation Industry Not on file Not on file Not on file documented as of this encounter Functional Status Functional Status Response Date of Assess ment Are you deaf or do you have serious difficulty h earing? No 04/23/2022 Are you blind or do you have serious difficulty seeing, even when wearing glasses? No 04/23/2022 Do you have serious difficul ty walking or climbing stairs? (5 years old or older) No 04/24/2022 Do you have difficulty dress ing or bathing? (5 years old or older) No 04/23/2022 Because of a physical, menta l, or emotional condition, do you have difficulty doing errands alone such as visiting a doctor s office or shopping? (15 years old or older) Yes 04/23/19 Cognitive Status Response Date of Assessm ent Because of a physical, menta l, or emotional condition, do you have serious difficulty concentrating, remembering, or making decisions? (5 years old or older) No 04/23/2022 documented as of this encounter Plan of Treatment Upcoming Encounters Date Type Department Care Team (Late st Contact Info) Description 12/17/2023 10:00 AM EDT Office Visit Family Practice [facility] [address] [facility] [place] [address] Temi Santos MD [address] [facility] [address] [facility] [place] [address] 01/05/2024 9:30 AM EDT Office Visit Cardiology, [facility] [address] [place] [address] Allyson Lackey CRNP [address] [place] [address] 01/07/2024 10:00 AM EDT Office Visit Neurology [facility] [address] [facility] [place] [address] Hanny Stallings MD [address] [facility] [place] [address] Pending Results Name Type Priority Associated Diagnoses Date /Time CBC WITH WBC DIFFERENTIAL Lab Routine EMILIA (obstructive sleep apnea) 11/24/2023 8:55 AM EDT COMPREHENSIVE METABOLIC PANEL Lab Routine Benign hypertension with CKD (chronic kidney disease) stage III (HCC) 11/24/2023 8:55 AM EDT TSH WITH FREE T4 IF INDICATED Lab Routine Acquired hypothyroidism 11/24/2023 8:55 AM EDT LIPID PANEL WITH DIRECT LDL IF TG IS HIGH Lab Routine Mixed hyperlipidemia 11/24/2023 8:55 AM EDT PHOSPHORUS Lab Routine Chronic kidney disease, unspecified CKD stage 11/24/2023 8:55 AM EDT CBC Lab Routine EMILIA (obstructive sleep apnea) 11/24/2023 8:55 AM EDT DIFFERENTIAL, AUTOMATED Lab Routine EMILIA (obstructive sleep apnea) 11/24/2023 8:55 AM EDT ALBUMIN / CREATININE RATIO, URINE Lab Routine Chronic kidney disease, unspecified CKD stage 11/24/2023 9:21 AM EDT Health Maintenance Due Date Last Done Comments DXA Scan 2005 Adult Wellness Visit 2006 Pneumococcal Vaccine: 65+ Years (2 of 2 - PPSV23 or PCV20) 10/07/2016 10/08/2015 Albumin/Creatinine Ratio 04/21/2023 04/21/2022 GFR 06/03/2023 12/03/2022, 08/0 03/2022, 04/25/2022, Additional history exists Depression Monitoring 09/03/2023 09/02/2022 CKD PHOS USE SMARTSET 20109 10/21/2023 10/20/2022 TSH 10/21/2023 10/20/2022, 04/21/2022 COVID-19 Vaccine ( season) 2023 Influenza Vaccine (FLU shot) (#1) 2023 01/08/2020, 01/08/2020, 01/16/2019, Additional history exists CKD HGB USE SMARTSET 48923 12/04/202312/03, 10/20/2022, 04/25/2022, Additional history exists Zoster Vaccines Discontinued 10/08/2015 DTap/Tdap Vaccines Discontinued [...] Not on filedocumented as of this encounter Visit Diagnoses Diagnosis EMILIA (obstructive sleep apnea) Obstructive sleep apnea (adult) (pediatric) Benign hypertension with CKD (chronic kidney disease) stage III (HCC) Benign hypertensive kidney disease with chronic kidney disease stage I through stage IV, or unspecified Acquired hypothyroidism Unspecified hypothyroidism Mixed hyperlipidemia Chronic kidney disease, unspecified CKD stage documented in this encounter Advance Directives * Full Code [...] Advance Directives occurred with: Patient Care Teams Manager Garden Relationship Specialty Start Date End Date Temi Santos MD [address] [place] [address] PCP - General Family Medicine 05/17/23 documented as of this encounter
--- OUTSIDE RECORDS SUMMARY | 2024-03-02 20:36 | External Medical Summary | Summary of Care ---
Author Name Unknown Organization [facility] Address [address] [place] [address] Phone [phone] Care Team Providers Care Weaver Axminster Name Role Phone Temi Santos MD Primary Care Provider [phone] Reason for Visit * Reason Comments Follow Up Encounter Details Date Type Department Care Team (Late st Contact Info) Description 01/05/2024 9:30 AM EDT Office Visit Cardiology, [facility] [address] [place] [address] Allyson Lackey CRNP [address] [place] [place] [address] Paroxysmal atrial fibrillation (HCC)*; Bradycardia; Mitral valve insufficiency, unspecified etiology; Hypertension goal BP (blood pressure) < 140/80; Mixed hyperlipidemia Allergies Active Allergy Reactions Criticality Noted Date Comments Amoxicillin Low 08/29/2021 Other reaction(s): Migraine migraine Atorvastatin Low 08/29/2021 Other reaction(s): Muscle Pain Myalgia Levofloxacin Low 08/29/2021 Other reaction(s): Migraine Lisinopril Low 10/02/2021 Dry cough Loratadine 08/29/2021 Other reaction(s): Migraine Losartan Low 08/29/2021 Other reaction(s): Migraine migraines Pseudoephedrine Low 08/29/2021 Other reaction(s): Migraine migraine documented as of this encounter (statuses as of 01/05/2024) Medications Medication Sig Dispensed Refills Start Date End Date Status Simethicone 80 MG Oral Tablet Chewable Take 1 Tablet by mouth every 6 hours as needed for Gas. Active Pantoprazole Sodium 20 MG Oral Tablet Delayed Release (Protonix) Take 2 Tablets by mouth in the morning. 180 Tablet 3 04/02/2023 Active Additional Information Patient taking differently: 20 mgOral Daily(AM), Informant: Patient, Reported on 01/05/2024 One-A-Day Womens 50 Plus Oral Tablet Take [...] every evening. Active Qulipta 60 MG Oral TabletIndications:Chr onic migraine w/o aura, not intractable, w/o stat [...] Active amLODIPine Besylate 5 MG Oral Tablet (Norvasc)Indications: Hypertension goal BP (blood pressure) < 140/80,Mitral valve insufficiency, unspecified etiology,Paroxysmal atrial fibrillation (HCC) Take 1 Tablet by mouth in the morning. 90 Tablet 3 08/18/2023 Active Metoprolol Succinate ER 25 MG Oral Tablet Extended Release 24 Hour (toPROL XL)Indications:Hypert ension goal BP (blood pressure) < 140/80,Mitral valve insufficiency, unspecified etiology,Paroxysmal atrial fibrillation (HCC) Take 1 Tablet by mouth in the morning. 90 Tablet 3 08/18/2023 Active FLUoxetine HCl 20 MG Oral Capsule (PROzac)Indications:P ersistent depressive disorder Take 1 capsule by mouth at bedtime 90 Capsule 1 10/12/2023 Active Levothyroxine Sodium 75 MCG Oral Tablet (Levoxyl) TAKE 1 TABLET BY MOUTH IN THE MORNING 90 Tablet 11/23/2023 Active Olopatadine HCl 0.1 % Ophthalmic Solution (Pataday) Instill 1 Drop into both eyes in the morning and 1 Drop before bedtime. 5 mL 1 12/10/2023 Active documented as of this encounter (statuses as of 01/05/2024) Active Problems Problem Noted Date Diagnosed Date Benign hypertension with stage 3a chronic kidney [...] as of this encounter (statuses as of 01/05/2024) Resolved Problems Problem Noted Date Diagnosed Date Resolved Date Benign hypertension with CKD (chronic kidney disease) stage III 04/22/2022 12/02/2023 Overview: Per CKD protocol Primary hypertension 10/02/2021 023 documented as of this encounter (statuses as of 01/05/2024) Immunizations Name Administration Dates Next Due Pneumococcal Conjugate Vacc, 13 Valent (Prevnar) 10/08/2015 Seasonal Influenza Virus Vac cine, Unspecified Formulation 01/08/2020,01/16/2019,01/14/2018,2016,12/26/2014,01/19/2014,12/09/2012 Varicella Zoster Vaccine (Adult) 10/08/2015 documented as of this encounter Social History Tobacco Use Types Packs/Day Years Used Date Smoking Tobacco: Former Cigarettes 1 40 1 963 - 2003 Passive Smoke Exposure: Past Smokeless Tobacco: Never Tobacco Cessation:Counseling Given: Not Answered Alcohol Use Standard Drinks/Week Comments Never 0 [...] No 04/26/2023 Does the household have a [facility] source of income? (Household - for ages [...] on file documented as of this encounter Last Filed Vital Signs Vital Sign Reading Time Taken Comments Blood Pressure 132/84 01/05/2024 9:20 AM EDT Pulse 58 01/05/2024 9:20 AM EDT Temperature - - Respiratory Rate - - Oxygen Saturation 98% 01/05/2024 9:20 AM EDT Inhaled Oxygen Concentration - - Weight 80.7 kg (178 lb) 01/05/2024 9:20 AM EDT Height - - Body Mass Index 38.52 05/10/2023 12:56 PM EST documented in this encounter Functional Status Functional Status Response [...] No 04/23/2022 documented as of this encounter Progress Notes * Allyson Lackey CRNP - 01/05/2024 9:30 AM EDT 01/05/2024 Cardiology Follow Up Primary Medical Secretary Teacher: SUSAN; formerly Dr. Leal Cardiac Problems: 1. Paroxysmal atrial fibrillation (HCC) 2. Bradycardia 3. Primary hypertension 4. Mixed hyperlipidemia 5. Cerebral aneurysm 6. EMILIA HPI: Rosalba Jeong is a 83 year old female presents for routine cardiology follow up. Last seen in the office by the undersigned on 06/25/2023 doing well from a cardiac perspective. Presents today feeling well from a cardiac perspective. Denies any change or decline in her functional capacity. She is present with her daughter today. Ambulates with a rolling walker. BP well controlled. Reports compliance on all medication therapies with no untoward effects. Has an appointment to see Rik tobar today as she's been noticing some decline in her vision. REVIEW OF SYSTEMS: See HPI for pertinent positives. All others negative other than those noted in the HPI. CONSTITUTIONAL: No change in weight, No weakness, No fatigue and No fevers, No sweats or chills. PULMONARY: No cough, sputum, or hemoptysis, No wheezing, No shortness or breath and No recent change in breathing. CARDIOVASCULAR: No chest pain, No dyspnea on exertion, No edema, No palpitations and No syncope. GASTROINTESTINAL: No abdominal pain, No change in bowel habits, No significant heartburn, No nausea, No vomiting, No diarrhea, No constipation, No blood in stools or black tarry stools. No dysphagia. HEMATOLOGIC: No abnormal bleeding and No bruising. NEUROLOGICAL: Normal balance, No headaches and No weakness. Review of patient's allergies indicates: Allergen Reactions Loratadine Other reaction(s): Migraine Amoxicillin Other reaction(s): Migraine migraine Atorvastatin Other reaction(s): Muscle Pain Myalgia Levofloxacin Other reaction(s): Migraine Lisinopril Dry cough Losartan Other reaction(s): Migraine migraines Pseudoephedrine Other reaction(s): Migraine migraine Current Outpatient Medications Medication Sig Dispense Refill Simethicone 80 MG Oral Tablet Chewable Take 1 Tablet by mouth every 6 hours as needed for Gas. Pantoprazole Sodium 20 MG Oral Tablet Delayed Release (Protonix) Take 2 Tablets by mouth in the morning. (Patient taking differently: Take 1 Tablet by mouth in the morning.) 180 Tablet 3 One-A-Day Womens 50 Plus Oral Tablet Take 1 Tablet by mouth every morning. Vitamin D3 25 MCG (1000 UT) Oral Capsule (Cholecalciferol) Take 1 Capsule by mouth in the morning. Benefiber On The GO Oral Powder Take 1 Package by mouth every morning. Levocetirizine Dihydrochloride 5 MG Oral Tablet (Xyzal Allergy 24HR) Take 1 Tablet by mouth every evening. Qulipta 60 MG Oral Tablet Take 1 Tablet by mouth in the morning. 30 Tablet 3 Ondansetron 4 MG Oral Tablet Disintegrating (Zofran) One pill by mouth every 12 hours as needed forNausea. 20 Tablet 3 Eliquis 5 MG Oral Tablet Take 1 Tablet by mouth in the morning and 1 Tablet before bedtime. 180 Tablet 1 amLODIPine Besylate 5 MG Oral Tablet (Norvasc) Take 1 Tablet by mouth in the morning. 90 Tablet 3 Metoprolol Succinate ER 25 MG Oral Tablet Extended Release 24 Hour (toPROL XL) Take 1 Tablet by mouth in the morning. 90 Tablet 3 FLUoxetine HCl 20 MG Oral Capsule (PROzac) Take 1 capsule by mouth at bedtime 90 Capsule 1 Levothyroxine Sodium 75 MCG Oral Tablet (Levoxyl) TAKE 1 TABLET BY MOUTH IN THE MORNING 90 Tablet 0 Olopatadine HCl 0.1 % Ophthalmic Solution (Pataday) Instill 1 Drop into both eyes in the morning and 1 Drop before bedtime. 5 mL 1 No current facility-administered medications for this visit. No past medical history on file. Family History Problem Relation Name Age of Onset Migraines Mother Hypertension Mother Other (sdh) Mother 91 Alzheimer's disease Father 92 Coronary Artery disease Father Breast Cancer Grandmother (Maternal) Hypertension Daughter Other (scleroderma) Daughter Social History Socioeconomic History Marital status: Tobacco Use Smoking status: Former Current packs/day: 0.00 Average packs/day: 1 pack/day for 40.0 years (40.0 ttl pk-yrs) Types: Cigarettes Start date: 1962 Quit date: 2002 Years since quittin.8 Passive exposure: Past Smokeless tobacco: Never Vaping Use Vaping status: Never Used Substance and Sexual Activity Alcohol use: Never Drug use: Never Social Determinants of Health Financial Resource Strain: Low Risk (04/26/2023) Financial Resource Strain Do you have any trouble paying for your medications, or do you think you might in the future? (Adult - for ages 18 years and over): No Food Insecurity: No Food Insecurity (04/26/2023) Food Insecurity Do you need food for this week? (Adult - for ages 18 years and over): No Transportation Needs: No Transportation Needs (04/26/2023) Transportation Needs Do you have trouble getting a ride to medical visits or work? (Adult - for ages 18 years and over):Never True Social Connections: Socially Integrated (04/26/2023) Social Connections How often do you feel lonely or isolated from those around you? (Adult - for ages 18 years and over): Rarely Housing Stability: Low Risk (04/26/2023) Housing Stability Do you currently live in a detention or have no steady place to sleep at night? (Adult - for ages 18 years and over): No Do you think you are at risk of becoming homeless? (Adult - for ages 18 years and over): No OBJECTIVE/PHYSICAL EXAMINATION: BP 132/84 | Pulse 58 | Wt 80.7 kg (178 lb) | SpO2 98% | BMI 38.52 kg/m | BSA 1.8 m General: No acute distress. A+Ox3. HEENT: Normocephalic. Atraumatic. PERRL. EOMI. Conjunctiva and sclera clear. NECK: No carotid bruits. No JVD. Carotid upstrokes are brisk. Heart: RRR. S1 and S2 noted. +1/6 systolic murmur. No rubs or gallops. PMI non displaced. Lungs: Clear to auscultation. No wheezes.No rhonchi. No rales. Abdomen: Normal bowel sounds. Soft. Nontender. No masses or organomegaly. No abdominal bruits. Extremities: No edema. No clubbing or cyanosis. Pulses: radial=2/4, posterior tibial=2/4, dorsalis pedis = 2/4. NEURO: No focal deficits. PSYCH: Appropriate affect and insight. DATA Labs & Imaging Reviewed Below: Echocardiogram: 04/15/2022 There is no previous study available for comparison. Normal LV chamber size with mild concentric LVH. Normal LV systolic function without regional wall motion abnormality. Calculated LV ejection Fraction = 64% (bi-plane method of discs). Grade II diastolic dysfunction. Mild aortic vavle sclerosis without stenosis. Mild mitral regurgitation. Moderate left atrial enlargement. Borderline pulmonary hypertension. The estimated pulmonary artery systolic pressure is 38mm Hg. EKG 04/15/22 Sinus bradycardia Left axis deviation Low voltage QRS, consider pulmonary disease, pericardial effusion, or normal variant ST & T wave abnormality, consider anterolateral ischemia Abnormal ECG Baseline artifact No previous ECGs available Ventricular Rate: 54 Lipid Panel Results: Results for orders placed or performed in visit on 11/24/23 LIPID PANEL WITH DIRECT LDL IF TG IS HIGH Result Value Ref Range Triglycerides 228 (H) <=174 mg/dL Cholesterol 210 (H) <200 mg/dL HDL Cholesterol 42 (L) >49 mg/dL Non-HDL Cholesterol 168 (H) <=159 mg/dL LDL Cholesterol 122 <=129 mg/dL ASSESSMENT/PLAN: 83 year old year old female 1. Paroxysmal atrial fibrillation (HCC) 2. Bradycardia -change or decline in functional capacity EKG today demonstrates sinus bradycardia first-degree AV block prior inferior infarct cited rate 53beats per minute -continue metoprolol succinate, amlodipine as per current regimen - EKG 3. Mitral valve insufficiency, unspecified etiology -mild valvular disease as per echocardiogram in March 2022 discussed with family and we will planfor echocardiogram next year for routine surveillance -patient is asymptomatic and euvolemic at this time 4. Hypertension goal BP (blood pressure) < 140/80 -at target -continue amlodipine and metoprolol succinate as per current regimen 5. Mixed hyperlipidemia -reviewed most recent lipid panel which demonstrates elevated total cholesterol and triglycerides -daughter does make note that patient really enjoys her sweets -discussed potential use of statin therapy which patient politely declines at this time. May give consideration to use of Zetia versus other triglyceride lowering drugs such as fenofibrate -encouraged cardiac prudent diet with moderation sugary foods DISPOSITION: Follow up 6 months or if symptoms worsen/fail to improve. All questions were answered to the patients satisfaction. Patient advised to report to ED with any and all emergencies. The patient agrees to the above plan and will call with additional questions or concerns. [facility], [address] [address] I spent a total of 30 minutes on the date of service in preparation, delivery, and documentation ofthe care provided to Rosalba Jeong excluding any time spent in the performance of separately billed services. This chart was completed in part utilizing [employer] Speech Voice Recognition Software. Grammatical errors, random word insertions, pronoun errors, and incomplete sentences are an occasional consequence of this system due to software limitations, ambient noise, and hardware issues. Any formal questions or concerns about the content, text, or information contained within the body of this dictation should be directly addressed to the provider for clarification. documented in this encounter Nursing Notes * Erika Khoury CMA - 01/05/2024 9:19 AM EDT Examination Room: 4 Name: Rosalba Jeong Date of : (1940) Reason for Visit: 6m Interim Hospitalization(s): September 03- back pain Problems/Concerns: denied Chest Pain/SOB: denied My [facility] is a way you can talk to your provider online through e-mail. Would you like to sign up? I can activate it for you? ALREADY ACTIVE Patient was instructed to not get up on the exam table until directed and assisted by their provider; patient is to remain seated in the chair/ wheelchair/ exam table for fall prevention and safety reasons. Patient is aware to have assistance to step down off exam table with personnel. Patient voiced full comprehension of instructions. documented in this encounter Plan of Treatment Upcoming Encounters Date Type Department Care Team (Late st Contact Info) Description 01/07/2024 10:00 AM EDT Office Visit Neurology [address] [place] [address] Hanny Stallings MD [address] [place] [address] [place] [address] 06/23/2024 11:00 AM EDT Office Visit Family Practice [facility] [address] [place] [address] Temi Santos MD [address] [place] [address] [place] [address] 07/19/2024 9:30 AM EDT Office Visit Cardiology, [facility] [address] [place] [address] Allyson Lackey CRNP [address] [place] [address] Scheduled Orders Name Type Priority Associated Diagnoses Orde r Schedule EKG EKG Routine Paroxysmal atrial fibrillation (HCC) Ordered: 01/05/2024 Health Maintenance Due Date Last Done Comments [...] 11/23/2024 11/24/2023, 03/24 CKD HGB USE SMARTSET 42750 11/23/202411/23, 11/24/2023, 12/03/2022, Additional history exists CKD PHOS USE SMARTSET 79425 11/23/2024 11/24/2023, 0 10/20/2022 TSH 11/23/2024 11/24/2023, [...] as of this encounter Visit Diagnoses Diagnosis Paroxysmal atrial fibrillation (HCC)- Primary Atrial fibrillation Bradycardia Other specified cardiac dysrhythmias Mitral valve insufficiency, unspecified etiology Hypertension goal BP (blood pressure) < 140/80 Unspecified essential hypertension Mixed hyperlipidemia documented in this encounter Advance Directives * [...] Advance Directives occurred with: Patient Care Teams Weaver Axminster Relationship Specialty Start Date End Date Temi Santos MD [address] [place] [address] PCP - General Family Medicine 05/17/23 documented as of this encounter"
--- OUTSIDE RECORDS SUMMARY | 2024-03-02 20:36 | External Medical Summary | Summary of Care ---
Author Name Unknown Organization [facility] Address [address] [place] [address] Phone [phone] Care Team Providers Care Recreation Coordinator Name Role Phone Temi Santos MD Primary Care Provider [phone] Reason for Visit * Reason Onset Date Comments Medication Refill 01/10/2024 Encounter Details Date Type Department Care Team (Late st Contact Info) Description 01/10/2024 Refill Rheumatology [facility], [place] [address] [facility] [place] [id number] Mildred Calvillo PA-C [address] [facility] [place] [address] Allergies Active Allergy Reactions Criticality Noted Date Comments Amoxicillin Low 08/29/2021 Other reaction(s): Migraine migraine Atorvastatin Low 08/29/2021 Other reaction(s): Muscle Pain Myalgia Levofloxacin Low 08/29/2021 Other reaction(s): Migraine Lisinopril Low 10/02/2021 Dry cough Loratadine 08/29/2021 Other reaction(s): Migraine Losartan Low 08/29/2021 Other reaction(s): Migraine migraines Pseudoephedrine Low 08/29/2021 Other reaction(s): Migraine migraine documented as of this encounter (statuses as of 01/10/2024) Medications Medication Sig Dispensed Refills Start Date [...] Active amLODIPine Besylate 5 MG Oral Tablet (Norvasc)Indications :Hypertension goal BP (blood pressure) < 140/80,Mitral valve insufficiency, unspecified etiology,Paroxysmal atrial fibrillation (HCC) Take 1 Tablet by mouth in the morning. 90 Tablet 3 08/18/2023 Active Metoprolol Succinate ER 25 MG Oral Tablet Extended Release 24 Hour (toPROL XL)Indications:Hyper tension goal BP (blood pressure) < 140/80,Mitral valve insufficiency, unspecified etiology,Paroxysmal atrial fibrillation (HCC) Take 1 Tablet by mouth in the morning. 90 Tablet 3 08/18/2023 Active FLUoxetine HCl 20 MG Oral Capsule (PROzac)Indications: Persistent depressive disorder Take 1 capsule by mouth at bedtime 90 Capsule 1 10/12/2023 Active Levothyroxine Sodium 75 MCG Oral Tablet (Levoxyl) TAKE 1 TABLET BY MOUTH IN THE MORNING 90 Tablet 11/23/2023 Active Qulipta 60 MG Oral TabletIndications:Ch ronic migraine w/o aura, not intractable, w/o stat migr Take 1 Tablet by mouth in the morning. 30 Tablet 3 01/05/2024 Active Ondansetron 4 MG Oral Tablet Disintegrating (Zofran)Indications: Nausea without vomiting One pill by mouth every 12 hours as needed for Nausea. 20 Tablet 3 01/07/2024 Active Turmeric 500 MG Oral Capsule Take 1 Capsule by mouth in the morning. Active Eliquis 5 MG Oral Tablet Take 1 Tablet by mouth in the morning and 1 Tablet before bedtime. 180 Tablet 1 01/10/2024 Active Eliquis 5 MG Oral Tablet Take 1 Tablet by mouth in the morning and 1 Tablet before bedtime. 180 Tablet 1 08/18/2023 01/10/20 24 Discontinu ed(Refill) documented as of this encounter (statuses as of 01/10/2024) Active Problems Problem Noted Date Diagnosed Date [...] as of this encounter (statuses as of 01/10/2024) Resolved Problems Problem Noted Date Diagnosed Date Resolved Date Benign hypertension with CKD (chronic kidney disease) stage III 04/22/2022 12/02/2023 Overview: Per CKD protocol Primary hypertension 10/02/2021 023 documented as of this encounter (statuses as of 01/10/2024) Immunizations Name Administration Dates Next Due Pneumococcal [...] (15 years old or older) Yes 04/23/19 23 Cognitive Status Response Date of Assessm ent Because of a physical, menta l, or emotional condition, do you have serious difficulty concentrating, remembering, or making decisions? (5 years old or older) No 04/23/2022 documented as of this encounter Miscellaneous Notes * Telephone Encounter - Cait Rich DO - 01/10/2024 4:33 PM EDTSigned Prescriptions: Disp Refills Eliquis 5 MG Oral Tablet 180 Ta*1 Sig: Take 1 Tablet by mouth in the morning and 1 Tablet before bedtime. Authorizing Provider: CAIT RICH * Telephone Encounter - Flor Douglass LPN - 01/10/2024 4:13 PM EDTPending Prescriptions: Disp Refills Eliquis 5 MG Oral Tablet 180 Ta*1 Sig: Take 1 Tablet by mouth in the morning and 1 Tablet before bedtime. documented in this encounter Plan of Treatment Upcoming Encounters Date Type Department Care Team (Late st Contact Info) Description 01/24/2024 4:00 PM EST Telemedicine Neurosurgery, [place] [address] [place] [address] Jakob Knight MD [address] [place] [id number] 06/23/2024 11:00 AM EDT Office Visit Family Practice [facility] [address] [facility] [place] [address] Temi Santos MD [address] [facility] [place] [address] 07/14/2024 10:00 AM EDT Office Visit Neurology [facility] [address] [facility] [place] [address] [facility]ings [facility] [address] 07/19/2024 9:30 AM EDT Office Visit Cardiology, [facility] [address] [facility] [address] Allyson Lackey CRNP [address] [facility] [place] [address] Health Maintenance Due Date Last Done Comments DXA Scan 2005 Adult Wellness Visit 2006 Pneumococcal Vaccine: 65+ Years (2 of 2 - PPSV23 or PCV20) 10/07/2016 10/08/2015 Depression Monitoring 09/03/2023 09/02/2022 COVID-19 Vaccine ( season) 2023 Influenza Vaccine (FLU shot) (#1) 2023 01/08/2020, 01/08/2020, 01/16/2019, Additional history exists GFR 05/23/2024 11/24/2023, 11/20, 10/20/2022, Additional history exists Albumin/Creatinine Ratio 11/23/2024 11/24/2023, 3 03/2022 CKD HGB USE SMARTSET 81992 11/23/202411/23, 11/24/2023, 12/03/2022, Additional history exists CKD PHOS USE SMARTSET 22687 11/23/2024 11/24/2023, 0 10/20/2022 TSH 11/23/2024 11/24/2023, [...] Advance Directives occurred with: Patient Care Teams Recreation Coordinator Relationship Specialty Start Date End Date Temi Santos MD [address] [place] [address] PCP - General Family Medicine 05/17/23 documented as of this encounter
--- OUTSIDE RECORDS SUMMARY | 2024-03-02 20:36 | External Medical Summary | Summary of Care ---
Author Name Unknown Organization [facility] Address [address] [place] [address] Phone [phone] Care Team Providers Care Crop Quantitative Geneticist Name Role Phone Temi Santos MD Primary Care Provider [phone] Reason for Visit * Reason Comments Return Neuro Migraine Headache Encounter Details Date Type Department Care Team (Late st Contact Info) Description 01/07/2024 10:00 AM EDT Office Visit Neurology [facility] [address] [facility] [place] [address] Hanny Stallings MD [address] [place] [address] Chronic migraine w/o aura, not intractable, w/o stat migr*; Intracranial aneurysm Allergies Active Allergy Reactions Criticality Noted Date Comments Amoxicillin Low 08/29/2021 Other reaction(s): Migraine migraine Atorvastatin Low 08/29/2021 Other reaction(s): Muscle Pain Myalgia Levofloxacin Low 08/29/2021 Other reaction(s): Migraine Lisinopril Low 10/02/2021 Dry cough Loratadine 08/29/2021 Other reaction(s): Migraine Losartan Low 08/29/2021 Other reaction(s): Migraine migraines Pseudoephedrine Low 08/29/2021 Other reaction(s): Migraine migraine documented as of this encounter (statuses as of 01/07/2024) Medications Medication Sig Dispensed Refills Start Date End Date Status Simethicone 80 MG Oral Tablet Chewable Take 1 Tablet by mouth every 6 hours as needed for Gas. Active Pantoprazole Sodium 20 MG Oral Tablet Delayed Release (Protonix) Take 2 Tablets by mouth in the morning. 180 Tablet 3 04/02/19 24 Active Additional Information Patient taking differently: 20 [...] 1 Tablet by mouth every evening. Active Eliquis 5 MG Oral Tablet Take 1 Tablet by mouth in the morning and 1 Tablet before bedtime. 180 Tablet 1 08/18/19 24 Active amLODIPine Besylate 5 MG Oral Tablet [...] morning. 90 Tablet 3 08/18/19 24 Active FLUoxetine HCl 20 MG Oral Capsule (PROzac)Indications :Persistent depressive disorder Take 1 capsule by mouth at bedtime 90 Capsule 1 10/12/19 24 Active Levothyroxine Sodium 75 MCG Oral Tablet (Levoxyl) TAKE 1 TABLET BY MOUTH IN THE MORNING 90 Tablet 11/23/19 24 Active Qulipta 60 MG Oral TabletIndications:C hronic migraine w/o aura, not intractable, w/o stat migr Take 1 Tablet by mouth in the morning. 30 Tablet 3 01/05/20 24 Active Turmeric 500 MG Oral Capsule Take 1 Capsule by mouth in the morning. Active Ondansetron 4 MG Oral Tablet Disintegrating (Zofran) One pill by mouth every 12 hours as needed for Nausea. 20 Tablet 3 08/18/19 24 024 Discontinued(Re fill) Olopatadine HCl 0.1 % Ophthalmic Solution (Pataday) Instill 1 Drop into both eyes in the morning and 1 Drop before bedtime. 5 mL 1 12/10/19 24 024 Discontinued documented as of this encounter (statuses as of 01/07/2024) Active Problems Problem Noted Date Diagnosed Date [...] as of this encounter (statuses as of 01/07/2024) Resolved Problems Problem Noted Date Diagnosed Date Resolved Date Benign hypertension with CKD (chronic kidney disease) stage III 04/22/2022 12/02/2023 Overview: Per CKD protocol Primary hypertension 10/02/2021 023 documented as of this encounter (statuses as of 01/07/2024) Immunizations Name Administration Dates Next Due Pneumococcal [...] Sign Reading Time Taken Comments Blood Pressure 132/86 01/07/2024 10:02 AM EDT Pulse 52 01/07/2024 10:02 AM EDT Temperature 36.4 C (97.5 F) 01/07/2024 10:02 AM E DT Respiratory Rate 16 01/07/2024 10:02 AM EDT Oxygen Saturation 96% 01/07/2024 10:02 AM EDT Inhaled Oxygen Concentration - - Weight 80.1 kg (176 lb 8 oz) 01/07/2024 10:02 AM EDT Height - - Body Mass Index 38.19 05/10/2023 12:56 PM EST documented in this [...] No 04/23/2022 documented as of this encounter Patient Instructions * Patient Instructions* Hanny Stallings MD - 01/07/2024 10:26 AM EDT After the first of the year consider decreasing Qulipta to every other day. If headaches increase let me know and we will resume the prior dose documented in this encounter Progress Notes * Hanny Stallings MD - 01/07/2024 10:39 AM EDT CLINIC NOTES Neurology [facility] [place] [address] [facility] [place] [place] [address] Rosalba Jeong : 1940 NEUROLOGY OUTPATIENT NOTE 01/07/2024 HISTORY: The patient is referred for consultation by Dr. Santos, who will be receiving a copy of this note. Patient comes today in follow-up of chronic migraine. She is doing well on daily Qulipta prophylaxis. She has a known intracranial aneurysms in his followed by Neurosurgery she has not had any significant headaches and has not had any sudden or severe headaches. No past medical history on file. Patient Active Problem List Diagnosis Cerebral aneurysm Mixed hyperlipidemia Paroxysmal atrial fibrillation (HCC) Bradycardia Acquired hypothyroidism Migraine without aura History of CVA (cerebrovascular accident) Persistent depressive disorder Statin intolerance Paraesophageal hernia EMILIA (obstructive sleep apnea) Diarrhea following gastrointestinal surgery Benign hypertension with stage 3a chronic kidney disease (HCC) Chronic kidney disease, stage 3a (HCC) Past Surgical History: Procedure Laterality Date ANKLE ARTHROSCOPY/SURGERY Right ORIF right ankle BREAST BIOPSY EGD, FLEXIBLE, DIAGNOSTIC N/A 04/23/2022 ESOPHAGOGASTRODUODENOSCOPY (EGD), FLEXIBLE, TRANSORAL, DIAGNOSTIC performed by Dustin Casper MD at [facility] EGD, FLEXIBLE, DIAGNOSTIC N/A 05/10/2023 ESOPHAGOGASTRODUODENOSCOPY (EGD), FLEXIBLE, TRANSORAL, DIAGNOSTIC performed by Daniel Cope MD at [facility] PARAESOPHAGEAL HERNIA REPAIR, LAP W/O MESH N/A 04/23/2022 LAPAROSCOPIC PARAESOPHAGEAL HERNIA REPAIR WO/ MESH performed by Dustin Casper MD at [place] [facility] [place] REPAIR INGUINAL HERNIA; SLIDING, ANY AGE Right [place] TOTAL ABDOMINAL HYSTERECT W/WO RMVL TUBE OVARY complete BEAN-SPO Social History Socioeconomic History Marital status: Spouse name: Not on file Number of children: Not on file Years of education: Not on file Highest education level: Not on file Occupational History Not on file Tobacco Use Smoking status: Former Current packs/day: 0.00 Average packs/day: 1 pack/day for 40.0 years (40.0 ttl pk-yrs) Types: Cigarettes Start date: 1962 Quit date: 2002 Years since quittin.8 Passive exposure: Past Smokeless tobacco: Never Vaping Use Vaping status: Never Used Substance and Sexual Activity Alcohol use: Never Drug use: Never Sexual activity: Not on file Other Topics Concern Not on file Social History Narrative Not on file Social Determinants of Health Financial Resource Strain: Low Risk (04/26/2023) Financial Resource Strain Do you have any trouble paying for your medications, or do you think you might in the future? (Adult - for ages 18 years and over): No Does your family have trouble paying for medicine? (Household - for ages 0-17 years): Not on file Food Insecurity: No Food Insecurity (04/26/2023) Food Insecurity Do you need food for this week? (Adult - for ages 18 years and over): No Are you able to get enough food for your family? (Household - for ages 0-17 years): Not on file Does your family need food this week? (Household - for ages 0-17 years): Not on file Do you always have enough food for your family? (Household - for ages 0-17 years): Not on file Transportation Needs: No Transportation Needs (04/26/2023) Transportation Needs Do you have trouble getting a ride to medical visits or work? (Adult - for ages 18 years and over):Never True Does your family have a hard time getting a ride to doctors visits? (Household - for ages 0-17 years): Not on file Has lack of transportation kept you from medical appointments, meetings, work, or from getting things needed for daily living? Check all that apply. (Adult - for ages 18 years and over): Not on file Do you (or your family) have trouble finding or paying for a ride (transportation)? (Household - for ages 0-17 years): Not on file Social Connections: Socially Integrated (04/26/2023) Social Connections How often do you feel lonely or isolated from those around you? (Adult - for ages 18 years and over): Rarely Housing Stability: Low Risk (04/26/2023) Housing Stability Do you currently live in a assisted or have no steady place to sleep at night? (Adult - for ages 18 years and over): No Do you think you are at risk of becoming homeless? (Adult - for ages 18 years and over): No Does your family worry about paying for your home or becoming homeless? (Household - for ages 0-17 years): Not on file Are you homeless or worried that you might be in the future? (Adult - for ages 18 years and over): Not on file Are you (or your family) homeless or worried that you might be in the future? (Household - for ages0-17 years): Not on file Family History Problem Relation Name Age of Onset Migraines Mother Hypertension Mother Other (sdh) Mother 91 Alzheimer's disease Father 92 Coronary Artery disease Father Breast Cancer Grandmother (Maternal) Hypertension Daughter Other (scleroderma) Daughter Current Outpatient Medications Medication Sig Dispense Refill [...] Take 1 Tablet by mouth every evening. Eliquis 5 MG Oral Tablet Take 1 [...] MOUTH IN THE MORNING 90 Tablet 0 Qulipta 60 MG Oral Tablet Take 1 Tablet by mouth in the morning. 30 Tablet 3 Turmeric 500 MG Oral Capsule Take 1 Capsule by mouth in the morning. Ondansetron 4 MG Oral Tablet Disintegrating (Zofran) One pill by mouth every 12 hours as needed forNausea. 20 Tablet 3 No current facility-administered medications for this visit. Review of patient's allergies indicates: Allergen Reactions Loratadine Other reaction(s): Migraine Amoxicillin Other reaction(s): Migraine migraine Atorvastatin Other reaction(s): Muscle Pain Myalgia Levofloxacin Other reaction(s): Migraine Lisinopril Dry cough Losartan Other reaction(s): Migraine migraines Pseudoephedrine Other reaction(s): Migraine migraine Results for orders placed or performed in visit on 11/24/23 CBC Result Value Ref Range WBC 7.79 4.00 - 10.80 K/uL RBC 4.44 3.85 - 5.15 M/uL HGB 13.2 12.0 - 15.3 g/dL HCT 42.0 36.0 - 45.2 % MCV 94.6 81.5 - 97.5 fL MCH 29.7 27.0 - 34.0 pg MCHC 31.4 32.0 - 36.0 g/dL RDW 13.5 11.5 - 15.5 % PLT 205 140 - 400 K/uL MPV 10.9 6.6 - 11.1 fL Results for orders placed or performed during the hospital encounter of 04/23/22 BASIC METABOLIC PANEL Result Value Ref Range BUN 17 6 - 20 mg/dL CREATININE 1.0 0.5 - 1.0 mg/dL EGFR 59 (L) >=60 mL/min SODIUM 137 135 - 146 mmol/L POTASSIUM 3.9 3.5 - 5.1 mmol/L CHLORIDE 103 98 - 107 mmol/L CO2 25 22 - 32 mmol/L ANION GAP 9 7 - 15 mmol/L GLUCOSE 88 70 - 120 mg/dL CALCIUM 8.7 8.4 - 10.2 mg/dL Results for orders placed or performed in visit on 11/24/23 LIPID PANEL WITH DIRECT LDL IF TG IS HIGH Result Value Ref Range Triglycerides 228 (H) <=174 mg/dL Cholesterol 210 (H) <200 mg/dL HDL Cholesterol 42 (L) >49 mg/dL Non-HDL Cholesterol 168 (H) <=159 mg/dL LDL Cholesterol 122 <=129 mg/dL No results found for: "HEMOGLOBIN A1C" Lab Results Component Value Date/Time TSH - [facility] 2.83 11/24/2023 08:55 AM TSH - [facility] 1.53 10/20/2022 09:37 AM TSH - [facility] 3.50 04/21/2022 08:52 AM No results found for: "ELOY" No results found for: "[id number]" No results found for: "RILL06OFC7" No results found for: "[id number]" No results found for: "25OHVITAMIND" Vitamin D Level Interpretation deficient: <20 ng/ml insufficient: 20-30 ng/ml normal: 31-100 ng/ml REVIEW OF SYSTEMS: As above PHYSICAL EXAM: BP 132/86 | Pulse 52 | Temp 36.4 C (97.5 F) (Tympanic) | Resp 16 | Wt 80.1 kg (176 lb 8 oz) | SpO2 96% | BMI 38.19 kg/m | BSA 1.79 m Patient is awake and alert speech and language are normal affect appropriate IMPRESSION: Chronic migraine doing well on Q lip after the of the year reduced Qulipta every other if headaches escalate notify me and we will resume daily. Intracranial aneurysm follow-up Neurosurgery, asymptomatic return in 6 months Hanny Stallings MD 01/07/2024 10:39 AM documented in this encounter Nursing Notes * Sobeida Colunga MED ASSIST - 01/07/2024 10:00 AM EDT Chief Complaint Patient presents with Return Neuro Migraine Headache documented in this encounter Plan of Treatment Upcoming Encounters Date Type Department Care Team (Late st Contact Info) Description 01/24/2024 4:00 PM EST Telemedicine Neurosurgery, [place] [address] [place] [address] Jakob Knight MD [address] [place] [id number] 06/23/2024 11:00 AM EDT Office Visit Family Practice [facility] [address] [facility] [place] [address] Temi Santos MD [address] [facility] [place] [address] 07/14/2024 10:00 AM EDT Office Visit Neurology [facility] [address] [facility] [place] [address] Hanny Stallings MD [address] [facility] [place] [address] 07/19/2024 9:30 AM EDT Office Visit Cardiology, [facility] [address] [place] [address] Allyson Lackey CRNP [address] [place] [address] Health Maintenance Due Date Last Done Comments [...] 11/23/2024 11/24/2023, 03/24 CKD HGB USE SMARTSET 85489 11/23/202411/23, 11/24/2023, 12/03/2022, Additional history exists CKD PHOS USE SMARTSET [id number] 11/23/2024 11/24/2023, 0 10/20/2022 TSH 11/23/2024 11/24/2023, [...] as of this encounter Visit Diagnoses Diagnosis Chronic migraine w/o aura, not intractable, w/o stat migr- Primary Intracranial aneurysm Cerebral aneurysm, nonruptured documented in this encounter Advance Directives * [...] Advance Directives occurred with: Patient Care Teams Crop Quantitative Geneticist Relationship Specialty Start Date End Date Temi Santos MD [address] [place] [address] PCP - General Family Medicine 05/17/23 documented as of this encounter
--- OUTSIDE RECORDS SUMMARY | 2024-03-02 20:36 | External Medical Summary | Summary of Care ---
Author Name Unknown Organization [facility] Address [address] [facility] [place] [address] Phone [phone] Care Team Providers Care Therapeutic Radiologist Name Role Phone Temi Santos MD Primary Care Provider [phone] Reason for Referral * Precert (Within 10 days (routine)) - Authorized Specialty Diagnoses / Procedures Referred By Contmari t Referred To Contact Radiology Diagnoses Cerebral aneurysm Procedures MRA HEAD WO CONTRAST Cherie Luis PA-C [address] [place] [facility] [place] [address] Referral ID Status Reason Start Date Expiration Date V isits Requested Visits Authorized [id number] Authorized 01/22/2025 [id number] Encounter Details Date Type Department Care Team (Late st Contact Info) Description 01/24/2024 4:00 PM EST Telemedicine Neurosurgery, [place] [address] [facility] [place] [id number] Jakob Knight MD [address] [facility] [place] [address] Cerebral aneurysm* Allergies Active Allergy Reactions Criticality Noted Date Comments Amoxicillin Low 08/29/2021 Other reaction(s): Migraine migraine Atorvastatin Low 08/29/2021 Other reaction(s): Muscle Pain Myalgia Levofloxacin Low 08/29/2021 Other reaction(s): Migraine Lisinopril Low 10/02/2021 Dry cough Loratadine 08/29/2021 Other reaction(s): Migraine Losartan Low 08/29/2021 Other reaction(s): Migraine migraines Pseudoephedrine Low 08/29/2021 Other reaction(s): Migraine migraine documented as of this encounter (statuses as of 01/25/2024) Medications Medication Sig Dispensed Refills Start Date [...] the morning. 90 Tablet 3 08/18/2023 Active Levothyroxine Sodium 75 MCG Oral Tablet (Levoxyl) TAKE 1 TABLET BY MOUTH IN THE MORNING 90 Tablet 11/23/2023 Active Qulipta 60 MG Oral TabletIndications:Chron ic migraine w/o aura, not intractable, w/o stat migr Take 1 Tablet by mouth in the morning. 30 Tablet 3 01/05/2024 Active Ondansetron 4 MG Oral Tablet Disintegrating (Zofran)Indications:Nikko sea without vomiting One pill by mouth every 12 hours as needed for Nausea. 20 Tablet 3 01/07/2024 Active Turmeric 500 MG Oral Capsule Take 1 Capsule by mouth in the morning. Active Eliquis 5 MG Oral Tablet Take 1 Tablet by mouth in the morning and 1 Tablet before bedtime. 180 Tablet 1 01/10/2024 Active FLUoxetine HCl 20 MG Oral Capsule (PROzac)Indications:Per sistent depressive disorder Take 1 Capsule by mouth at bedtime. 90 Capsule 1 01/11/2024 Active Pantoprazole Sodium 20 MG Oral Tablet Delayed Release (Protonix) Take 2 Tablets by mouth in the morning. 180 Tablet 3 01/12/2024 Active documented as of this encounter (statuses as of 01/25/2024) Active Problems Problem Noted Date Diagnosed Date [...] as of this encounter (statuses as of 01/25/2024) Resolved Problems Problem Noted Date Diagnosed Date Resolved Date Benign hypertension with CKD (chronic kidney disease) stage III 04/22/2022 12/02/2023 Overview: Per CKD protocol Primary hypertension 10/02/2021 023 documented as of this encounter (statuses as of 01/25/2024) Immunizations Name Administration Dates Next Due Pneumococcal [...] as of this encounter Progress Notes * Cherie Luis PA-C - 01/24/2024 4:17 PM EST Patient location: HOME. I was in a hospital or clinic location. After connecting through televideo,patient was verified with two unique identifiers. 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 Methods to assure confidentiality were taken. Patient acknowledged consent and understanding of pr ivacy and security of the Telemedicine visit. The patient agreed to participate. 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 She has known about this aneurysm for approximately 12 years. Most of her records have been imported into our system includingall imaging. She recently had a CVA which required her to move in with her daughter who has been helping provide care. Both her and her daughter feels that she is doing well. The patient denies STRONG, nausea, vomiting, dizziness, double vision, numbness or tingling in the arms or legs, change in bowelor bladder, chest pain, and SOB. PAST MEDICAL HISTORY: No past medical history on file. History of stroke: Had a CVA PAST SURGICAL HISTORY: Past Surgical History: Procedure Laterality Date ANKLE ARTHROSCOPY/SURGERY Right ORIF right ankle BREAST BIOPSY EGD, FLEXIBLE, DIAGNOSTIC N/A 04/23/2022 ESOPHAGOGASTRODUODENOSCOPY (EGD), FLEXIBLE, TRANSORAL, DIAGNOSTIC performed by Dustin Casper MD at [facility] EGD, FLEXIBLE, DIAGNOSTIC N/A 05/10/2023 ESOPHAGOGASTRODUODENOSCOPY (EGD), FLEXIBLE, TRANSORAL, DIAGNOSTIC performed by Daniel Cope MD at [facility] PARAESOPHAGEAL HERNIA REPAIR, LAP W/O MESH N/A 04/23/2022 LAPAROSCOPIC PARAESOPHAGEAL HERNIA REPAIR WO/ MESH performed by Dustin Casper MD at [facility] ND REPAIR INGUINAL HERNIA; SLIDING, ANY AGE Right ND TOTAL ABDOMINAL HYSTERECT W/WO RMVL TUBE OVARY complete BEAN-SPO SOCIAL HISTORY: Social History Socioeconomic History Marital status: Spouse [...] Stability Do you currently live in a fpc or have no steady place to sleep [...] - for ages0-17 years): Not on file Tobacco Use: Former - 40 pack years EtOH use: Denies Recreational/Illicit Drug Use: Denies FAMILY HISTORY: Family History Problem Relation Name Age of Onset Migraines Mother Hypertension Mother Other (sdh) Mother 91 Alzheimer's disease Father 92 Coronary Artery disease Father Breast Cancer Grandmother (Maternal) Hypertension Daughter Other (scleroderma) Daughter Subarachnoid hemorrhage: Denies Aneurysms: Denies Stroke: Cousin from an aneurysm Vascular Malformations: Denies MEDICATIONS: Current Outpatient Medications Medication Sig Dispense Refill Simethicone 80 MG Oral Tablet Chewable Take 1 Tablet by mouth every 6 hours as needed for Gas. One-A-Day Womens 50 Plus Oral Tablet Take 1 Tablet by mouth every morning. Vitamin D3 25 MCG (1000 UT) Oral Capsule (Cholecalciferol) Take 1 Capsule by mouth in the morning. Benefiber On The GO Oral Powder Take 1 Package by mouth every morning. Levocetirizine Dihydrochloride 5 MG Oral Tablet (Xyzal Allergy 24HR) Take 1 Tablet by mouth every evening. amLODIPine Besylate 5 MG Oral Tablet (Norvasc) Take 1 Tablet by mouth in the morning. 90 Tablet 3 Metoprolol Succinate ER 25 MG Oral Tablet Extended Release 24 Hour (toPROL XL) Take 1 Tablet by mouth in the morning. 90 Tablet 3 Levothyroxine Sodium 75 MCG Oral Tablet (Levoxyl) TAKE 1 TABLET BY MOUTH IN THE MORNING 90 Tablet 0 Qulipta 60 MG Oral Tablet Take 1 Tablet by mouth in the morning. 30 Tablet 3 Ondansetron 4 MG Oral Tablet Disintegrating (Zofran) One pill by mouth every 12 hours as needed forNausea. 20 Tablet 3 Turmeric 500 MG Oral Capsule Take 1 Capsule by mouth in the morning. Eliquis 5 MG Oral Tablet Take 1 Tablet by mouth in the morning and 1 Tablet before bedtime. 180 Tablet 1 FLUoxetine HCl 20 MG Oral Capsule (PROzac) Take 1 Capsule by mouth at bedtime. 90 Capsule 1 Pantoprazole Sodium 20 MG Oral Tablet Delayed Release (Protonix) Take 2 Tablets by mouth in the morning. 180 Tablet 3 No current facility-administered medications for this visit. Antiplatelet/Anti-coagulation regimen: Eliquis daily - afib ALLERGIES: Review of patient's allergies indicates: Allergen Reactions Loratadine Other reaction(s): Migraine Amoxicillin Other reaction(s): Migraine migraine Atorvastatin Other reaction(s): Muscle Pain Myalgia Levofloxacin Other reaction(s): Migraine Lisinopril Dry cough Losartan Other reaction(s): Migraine migraines Pseudoephedrine Other reaction(s): Migraine migraine Allergy to EMANUEL: No Patient Active Problem List Diagnosis Cerebral aneurysm Mixed hyperlipidemia Paroxysmal atrial fibrillation (HCC) Bradycardia Acquired hypothyroidism Migraine without aura History of CVA (cerebrovascular accident) Persistent depressive disorder Statin intolerance Paraesophageal hernia EMILIA (obstructive sleep apnea) Diarrhea following gastrointestinal surgery Benign hypertension with stage 3a chronic kidney disease (HCC) Chronic kidney disease, stage 3a (HCC) REVIEW OF SYSTEMS: All ROS was reviewed and are only positive for the above noted pertinent complaints PHYSICAL EXAMINATION: Visit vital signs: There were no vitals taken for this visit. Patient found sitting comfortably in chair in the room upon arrival Alert Awake and Oriented x3 Following commands appropriately Pleasant and cooperative Cranial Nerves II-XII Intact 5/5 strength in all 4 extremities Sensation intact in all 4 extremities No Pronator Drift Using a rolling walker without difficulty IMAGES: CTA Head/Neck 08/29/2021 Impression: 1. 1.5 cm aneurysm of the supraclinoid right internal carotid artery. There is no evidence of rupture. 2. Otherwise unremarkable CTA of brain 3. Plaque causes less than 50% luminal narrowing of the proximal right internal carotid artery 4. Otherwise unremarkable CTA of neck VISIT DIAGNOSIS/PRE-OP ORDERS: Cerebral aneurysm (Primary) - MRA HEAD WO CONTRAST; Future; Expected date: 01/22/2025 IMPRESSION: Rosalba Jeong is a very pleasant 83 year old female that returns to the clinic for evaluation of a Rsupraclinoid unruptured aneurysm of the ICA. She has known about this aneurysm for approximately 12years. Most of her records have been imported into our system including all imaging. She recently had a CVA which required her to move in with her daughter who has been helping provide care. Both herand her daughter feels that she is doing well. PLAN: All questions and concerns addressed Imaging reviewed Follow up in clinic in 1 year MRA of the head to be completed in 1 year prior to follow up Encouraged to call with new questions or concerns Patient to be discussed with Dr. Eugene Luis PA-C Neuroscience [place] [address] [facility] [place] [address] 01/25/2024 8:32 AM documented in this encounter Plan of Treatment Upcoming Encounters Date Type Department Care Team (Late st Contact Info) Description 06/23/2024 11:00 AM EDT Office Visit Family Practice [facility] [address] [facility] [place] [address] Temi Santos MD [address] [facility] [place] [address] 07/14/2024 10:00 AM EDT Office Visit Neurology [facility] [address] [facility] [place] [address] Hanny Stallings MD [address] [facility] [place] [address] 07/19/2024 9:30 AM EDT Office Visit Cardiology, [facility] [address] [facility] [place] [address] Allyson Lackey CRNP [address] [place] [address] Scheduled Orders Name Type Priority Associated Diagnoses Orde r Schedule MRA HEAD WO CONTRAST Medical Imaging Routine Cerebral aneurysm Expected: 01/22/2025 (Approximate), Expires: 02/23/2025 Health Maintenance Due Date Last Done Comments [...] 11/23/2024 11/24/2023, 03/24 CKD HGB USE SMARTSET 34795 11/23/202411/23, 11/24/2023, 12/03/2022, Additional history exists CKD PHOS USE SMARTSET [id number] 11/23/2024 11/24/2023, 0 10/20/2022 TSH 11/23/2024 11/24/2023, [...] as of this encounter Visit Diagnoses Diagnosis Cerebral aneurysm- Primary Cerebral aneurysm, nonruptured documented in this encounter [...] Advance Directives occurred with: Patient Care Teams Therapeutic Radiologist Relationship Specialty Start Date End Date Temi Santos MD [address] [place] [address] PCP - General Family Medicine 05/17/23 documented as of this encounter
--- OUTSIDE RECORDS SUMMARY | 2024-03-02 20:36 | External Medical Summary | Summary of Care ---
Author Name Unknown Organization [facility] Address [address] [place] [address] Phone [phone] Care Team Providers Care On Site Manager Name Role Phone Temi Santos MD Primary Care Provider [phone] Reason for Visit * Reason Onset Date Comments Medication Refill 01/10/2024 Encounter Details Date Type Department Care Team (Late st Contact Info) Description 01/10/2024 Refill General Internal Medicine [facility] [address] [facility] [address] Morris Frank MD [address] [place] [address] Allergies Active Allergy Reactions Criticality Noted Date Comments Amoxicillin Low 08/29/2021 Other reaction(s): Migraine migraine Atorvastatin Low 08/29/2021 Other reaction(s): Muscle Pain Myalgia Levofloxacin Low 08/29/2021 Other reaction(s): Migraine Lisinopril Low 10/02/2021 Dry cough Loratadine 08/29/2021 Other reaction(s): Migraine Losartan Low 08/29/2021 Other reaction(s): Migraine migraines Pseudoephedrine Low 08/29/2021 Other reaction(s): Migraine migraine documented as of this encounter (statuses as of 01/12/2024) Medications Medication Sig Dispensed Refills Start Date [...] Tablet 11/23/2023 Active Qulipta 60 MG Oral TabletIndications:Chr onic migraine w/o aura, not intractable, w/o stat migr Take 1 Tablet by mouth in the morning. 30 Tablet 3 01/05/2024 Active Ondansetron 4 MG Oral Tablet Disintegrating (Zofran)Indications:N ausea without vomiting One pill by mouth every [...] Capsule (PROzac)Indications:P ersistent depressive disorder Take 1 Capsule by mouth at bedtime. 90 Capsule 1 01/11/2024 Active Pantoprazole Sodium 20 MG Oral Tablet Delayed Release (Protonix) Take 2 Tablets by mouth in the morning. 180 Tablet 3 01/12/2024 Active Pantoprazole Sodium 20 MG Oral Tablet Delayed Release (Protonix) Take 2 Tablets by mouth in the morning. 180 Tablet 3 04/02/2023 4 Discontinue d(Refill) documented as of this encounter (statuses as of 01/12/2024) Active Problems Problem Noted Date Diagnosed Date [...] as of this encounter (statuses as of 01/12/2024) Resolved Problems Problem Noted Date Diagnosed Date Resolved Date Benign hypertension with CKD (chronic kidney disease) stage III 04/22/2022 12/02/2023 Overview: Per CKD protocol Primary hypertension 10/02/2021 023 documented as of this encounter (statuses as of 01/12/2024) Immunizations Name Administration Dates Next Due Pneumococcal [...] No 04/26/2023 Does the household have a [facility] hospitall[facility] source of income? (Household - for ages [...] encounter Miscellaneous Notes * Telephone Encounter - Teo Dickerson [facility] - 01/12/2024 2:28 PM EDTSigned Prescriptions: Disp Refills Pantoprazole Sodium 20 MG Oral Tablet Josey*180 Ta*3 Sig: Take 2 Tablets by mouth in the morning.Authorizing Provider: MORRIS FRANK User: TEO DICKERSON documented in this encounter Plan of Treatment Upcoming Encounters Date Type Department Care Team (Late st Contact Info) Description 01/24/2024 4:00 PM EST Telemedicine Neurosurgery, [place] [address] [place] [address] Jakob Knight MD [address] [place] [place] [address] 06/23/2024 11:00 AM EDT [facility] [place] [address] [place] [address] Temi Santos MD [address] [place] [address] 07/14/2024 10:00 AM EDT Office Visit Neurology [facility] [address] [facility] [place] [address] Hanny Stallings MD [address] [facility] [place] [address] 07/19/2024 9:30 AM EDT Office Visit Cardiology, [facility] [address] [place] [address] Allyson Lackey CRNP [address] [place] [address] Health Maintenance Due Date Last Done Comments [...] 11/23/2024 11/24/2023, 03/24 CKD HGB USE SMARTSET 21506 11/23/202411/23, 11/24/2023, 12/03/2022, Additional history exists CKD PHOS USE SMARTSET [id number] 11/23/2024 11/24/2023, 0 10/20/2022 TSH 11/23/2024 11/24/2023, [...] Advance Directives occurred with: Patient Care Teams On Site Manager Relationship Specialty Start Date End Date Temi Santos MD [address] [place] [address] PCP - General Family Medicine 05/17/23 documented as of this encounter
--- OUTSIDE RECORDS SUMMARY | 2024-03-02 20:36 | External Medical Summary | Summary of Care ---
Author Name Unknown Organization [facility] Address [address] [place] [address] Phone [phone] Care Team Providers Care Assistant Store Leader Name Role Phone Teim Santos MD Primary Care Provider Reason for Visit * Reason Onset Date Comments Medication Refill 01/05/2024 Encounter Details Date Type Department Care Team (Late st Contact Info) Description 01/05/2024 Refill Cardiology, [facility] [address] [place] [address] Allyson Lackey CRNP [address] [place] [address] Hypertension goal BP (blood pressure) < 140/80; Mitral valve insufficiency, unspecified etiology; Paroxysmal atrial fibrillation (HCC) Allergies Active Allergy Reactions Criticality Noted Date Comments Amoxicillin Low 08/29/2021 Other reaction(s): Migraine migraine Atorvastatin Low 08/29/2021 Other reaction(s): Muscle Pain Myalgia Levofloxacin Low 08/29/2021 Other reaction(s): Migraine Lisinopril Low 10/02/2021 Dry cough Loratadine 08/29/2021 Other reaction(s): Migraine Losartan Low 08/29/2021 Other reaction(s): Migraine migraines Pseudoephedrine Low 08/29/2021 Other reaction(s): Migraine migraine documented as of this encounter (statuses as of 01/06/2024) Medications Medication Sig Dispensed Refills Start Date [...] 1 Tablet by mouth every evening. Active Ondansetron 4 MG Oral Tablet Disintegrating [...] Active Olopatadine HCl 0.1 % Ophthalmic Solution (Patadadeanne) Instill 1 Drop into both eyes in the morning and 1 Drop before bedtime. 5 mL 1 12/10/2023 Active documented as of this encounter (statuses as of 01/06/2024) Active Problems Problem Noted Date Diagnosed Date [...] as of this encounter (statuses as of 01/06/2024) Resolved Problems Problem Noted Date Diagnosed Date Resolved Date Benign hypertension with CKD (chronic kidney disease) stage III 04/22/2022 12/02/2023 Overview: Per CKD protocol Primary hypertension 10/02/2021 023 documented as of this encounter (statuses as of 01/06/2024) Immunizations Name Administration Dates Next Due Pneumococcal [...] encounter Miscellaneous Notes * Telephone Encounter - Mi Murrieta RPh - 01/06/2024 3:35 PM EDTRefused Prescriptions: Disp Refills amLODIPine Besylate 5 MG Oral Tablet (Norv*90 Tab*3 Sig: Take 1Tablet by mouth in the morning.Refused By: Lynda MURRIETA for Refusal: Too soonReason for Refusal Comment: year supply sent on 07/2023 Metoprolol Succinate ER 25 MG Oral Tablet *90 Tab*3 Sig: Take 1 Tablet by mouth in the morning.Refused By: Lynda MURRIETA for Refusal: Too soon documented in this encounter Plan of Treatment Upcoming Encounters Date Type Department Care Team (Late st Contact Info) Description 01/07/2024 10:00 AM EDT Office Visit Neurology [facility] [address] [place] [address] aHnny Stallings MD [address] [place] [address] 01/24/2024 4:00 PM [facility] Neurosurgery, [address] [place] [address] Jakob Knight MD [address] [place] [address] 06/23/2024 11:00 AM EDT Office Visit Family Practice [facility] [address] [facility] [place] [address] Temi Santos MD [address] [facility] [place] [address] 07/19/2024 9:30 AM EDT Office Visit Cardiology, [facility] [address] [facility] [place] [address] Allyson Lackey CRNP [address] [facility] [place] [address] Health Maintenance Due Date Last Done Comments [...] 11/23/2024 11/24/2023, 03/24 CKD HGB USE SMARTSET 77202 11/23/202411/23, 11/24/2023, 12/03/2022, Additional history exists CKD PHOS USE SMARTSET 42767 11/23/2024 11/24/2023, 0 10/20/2022 TSH 11/23/2024 11/24/2023, [...] as of this encounter Visit Diagnoses Diagnosis Hypertension goal BP (blood pressure) < 140/80 Unspecified essential hypertension Mitral valve insufficiency, unspecified etiology Paroxysmal atrial fibrillation (HCC) Atrial fibrillation documented in this encounter Advance Directives * [...] Advance Directives occurred with: Patient Care Teams Assistant Store Leader Relationship Specialty Start Date End Date Temi Santos MD [address] [place] [address] PCP - General Family Medicine 05/17/23 documented as of this encounter
--- OUTSIDE RECORDS SUMMARY | 2024-03-02 20:36 | External Medical Summary | Summary of Care ---
Author Name Unknown Organization [facility] Address [address] [place] [address] Phone [phone] Care Team Providers Care Deputy Of Counter Intelligence Name Role Phone Nasima Santos MD Primary Care Provider [phone] Reason for Visit * Reason Comments eRx-Medication Refill Encounter Details Date Type Department Care Team (Late st Contact Info) Description 11/21/2023 Refill Family Practice [facility] [address] [place] [address] Nasima Santos MD [address] [place] [address] Allergies Active Allergy Reactions Criticality Noted Date Comments Amoxicillin Low 08/29/2021 Other reaction(s): Migraine migraine Atorvastatin Low 08/29/2021 Other reaction(s): Muscle Pain Myalgia Levofloxacin Low 08/29/2021 Other reaction(s): Migraine Lisinopril Low 10/02/2021 Dry cough Loratadine 08/29/2021 Other reaction(s): Migraine Losartan Low 08/29/2021 Other reaction(s): Migraine migraines Pseudoephedrine Low 08/29/2021 Other reaction(s): Migraine migraine documented as of this encounter (statuses as of 11/25/2023) Medications Medication Sig Dispensed Refills Start Date [...] every evening. Active Qulipta 60 MG Oral TabletIndications:Ch ronic [...] IN THE MORNING 90 Tablet 11/23/2023 Active Levothyroxine Sodium 75 MCG Oral Tablet (Levoxyl) Take 1 Tablet by mouth in the morning. 90 Tablet 3 12/04/2022 4 Discontinued documented as of this encounter (statuses as of 11/25/2023) Active Problems Problem Noted Date Diagnosed Date [...] as of this encounter (statuses as of 11/25/2023) Resolved Problems Problem Noted Date Diagnosed Date Resolved Date Primary hypertension 10/02/2021 023 documented as of this encounter (statuses as of 11/25/2023) Immunizations Name Administration Dates Next Due Pneumococcal [...] No 04/26/2023 Does the household have a up health systemr source of income? (Household - for ages [...] encounter Miscellaneous Notes * Telephone Encounter - En Quintana - 11/25/2023 11:00 PM EDT Received message from [facility] regarding patient needing labs. Patient was notified. Successfully contacted patient and provided [facility] message. * Telephone Encounter - Aleena Alcocer [facility] - 11/23/2023 2:01 PM EDTSigned Prescriptions: Disp Refills Levothyroxine Sodium 75 MCG Oral Tablet (L*90 Tab*0 Sig: TAKE 1 TABLET BY MOUTH IN THE MORNING Authorizing Provider: NASIMA SANTOS User: ALEENA ALCOCER * Telephone Encounter - Aleena Alcocer [facility] - 11/23/2023 2:00 PM EDT Provided 90 days supply with 0 refill(s) until upcoming appointment. Per refill protocol patient should have tsh/t4 on file within past year. Reviewed AMP report, Care Gaps/Health Maintenance, medications list, and for any routine labs typically ordered for this patient. Lab orders placed. Please contact patient to advise of labs ordered for blood draw. Recommend patient to fast if able for labs. Patient may still have water and regular medications. Advise to obtain labs before her scheduled office visit 12/17/2023. Thanks, Aleena Alcocer, PharmD Clinical Pharmacist [facility] [phone] 11/23/2023 2:01 PM documented in this encounter Plan of Treatment Upcoming Encounters Date Type Department Care Team (Late st Contact Info) Description 12/17/2023 10:00 AM EDT Office Visit Family Practice [facility] [address] [facility] [place] [address] Nasima Santos MD 200 [facility] [place] [address] 01/05/2024 9:30 AM EDT Office Visit Cardiology, [facility] [address] [place] [address] Allyson Lackey CRNP [address] [place] [address] 01/07/2024 10:00 AM EDT Office Visit Neurology [facility] [address] [facility] [place] [address] Hanny Stallings MD 200 [facility] [place] [address] Health Maintenance Due Date Last Done Comments [...] 11/23/2024 11/24/2023, 03/24 CKD HGB USE SMARTSET 99208 11/23/202411/23, 11/24/2023, 12/03/2022, Additional history exists CKD PHOS USE SMARTSET 51211 11/23/2024 11/24/2023, 0 10/20/2022 TSH 11/23/2024 11/24/2023, [...] Advance Directives occurred with: Patient Care Teams Deputy Of Counter Intelligence Relationship Specialty Start Date End Date Nasima Santos MD 200 [facility] [place] [address] PCP - General Family Medicine 05/17/23 documented as of this encounter
--- OUTSIDE RECORDS SUMMARY | 2024-03-02 20:36 | External Medical Summary | Summary of Care ---
Author Name Unknown Organization [facility] Address [address] [place] [address] Phone [phone] Care Team Providers Care Forensic Accountant Name Role Phone Temi Santos MD Primary Care Provider [phone] Reason for Visit * Reason Comments Eye Infection X 1 WEEK, BILAT EYE DRAINAGE, ITCHING Encounter Details Date Type Department Care Team (Latest Contact Info) Description 12/10/2023 3:00 PM EDT Office Visit Family [facility] [address] [place] [address] Rose Mary Gonzalez CRNP [address] [place] [address] Allergic conjunctivitis of both eyes* Allergies Active Allergy Reactions Criticality Noted Date Comments Amoxicillin Low 08/29/2021 Other reaction(s): Migraine migraine Atorvastatin Low 08/29/2021 Other reaction(s): Muscle Pain Myalgia Levofloxacin Low 08/29/2021 Other reaction(s): Migraine Lisinopril Low 10/02/2021 Dry cough Loratadine 08/29/2021 Other reaction(s): Migraine Losartan Low 08/29/2021 Other reaction(s): Migraine migraines Pseudoephedrine Low 08/29/2021 Other reaction(s): Migraine migraine documented as of this encounter (statuses as of 12/10/2023) Medications Medication Sig Dispensed Refills Start Date [...] as of this encounter (statuses as of 12/10/2023) Active Problems Problem Noted Date Diagnosed Date [...] as of this encounter (statuses as of 12/10/2023) Resolved Problems Problem Noted Date Diagnosed Date Resolved Date Benign hypertension with CKD (chronic kidney disease) stage III 04/22/2022 12/02/2023 Overview: Per CKD protocol Primary hypertension 10/02/2021 023 documented as of this encounter (statuses as of 12/10/2023) Immunizations Name Administration Dates Next Due Pneumococcal [...] Sign Reading Time Taken Comments Blood Pressure 100/60 12/10/2023 3:08 PM EDT Pulse 54 12/10/2023 3:08 PM EDT Temperature - - Respiratory Rate - - Oxygen Saturation - - Inhaled Oxygen Concentration - - Weight - - Height - - Body Mass Index - - documented in this encounter Functional Status Functional [...] as of this encounter Progress Notes * Rose Mary Gonzalez CRNP - 12/10/2023 3:11 PM EDT Acute Family Medicine Visit CC: Chief Complaint Patient presents with Eye Infection X 1 WEEK, BILAT EYE DRAINAGE, ITCHING History of Present Illness: Rosalba Jeong is a 83 year old female presenting today for complaints of bilateral eye drainage. Present for 1 week. +EYE ITCHING +FEELS IRRITATED -FEVER +SNEEZING +RUBBING EYES Takes xyzal daily Social History Socioeconomic History Marital status: Spouse name: Not on file Number of children: Not on file Years of education: Not on file Highest education level: Not on file Occupational History Not on file Tobacco Use Smoking status: Former Current packs/day: 0.00 Average packs/day: 1 pack/day for 40.0 years (40.0 ttl pk-yrs) Types: Cigarettes Start date: 1962 Quit date: 2002 Years since quittin.7 Passive exposure: Past Smokeless tobacco: Never Vaping [...] Stability Do you currently live in a custodial or have no steady place to sleep [...] - for ages0-17 years): Not on file PMH: No past medical history on file. Past Surgical History: Procedure Laterality Date ANKLE ARTHROSCOPY/SURGERY Right ORIF right ankle BREAST BIOPSY EGD, FLEXIBLE, DIAGNOSTIC N/A 04/23/2022 ESOPHAGOGASTRODUODENOSCOPY (EGD), FLEXIBLE, TRANSORAL, DIAGNOSTIC performed by Dustin Casper MD [place] [facility] [place]GD, FLEXIBLE, DIAGNOSTIC N/A 05/10/2023 ESOPHAGOGASTRODUODENOSCOPY (EGD), FLEXIBLE, TRANSORAL, DIAGNOSTIC performed by Daniel Cope MD at [place] [facility] PARAESOPHAGEAL HERNIA REPAIR, LAP W/O MESH N/A 04/23/2022 LAPAROSCOPIC PARAESOPHAGEAL HERNIA REPAIR WO/ MESH performed by Dustin Casper MD at [place] [facility] PA REPAIR INGUINAL HERNIA; SLIDING, ANY AGE Right PA TOTAL ABDOMINAL HYSTERECT W/WO RMVL TUBE OVARY complete BEAN-SPO Current Outpatient Medications Medication Sig Dispense Refill Levothyroxine Sodium 75 MCG Oral Tablet (Levoxyl) TAKE 1 TABLET BY MOUTH IN THE MORNING 90 Tablet 0 FLUoxetine HCl 20 MG Oral Capsule (PROzac) Take 1 capsule by mouth at bedtime 90 Capsule 1 amLODIPine Besylate 5 MG Oral Tablet (Norvasc) Take 1 Tablet by mouth in the morning. 90 Tablet 3 Eliquis 5 MG Oral Tablet Take 1 Tablet by mouth in the morning and 1 Tablet before bedtime. 180 Tablet 1 Metoprolol Succinate ER 25 MG Oral Tablet Extended Release 24 Hour (toPROL XL) Take 1 Tablet by mouth in the morning. 90 Tablet 3 Ondansetron 4 MG Oral Tablet Disintegrating (Zofran) One pill by mouth every 12 hours as needed forNausea. 20 Tablet 3 Qulipta 60 MG Oral Tablet Take 1 Tablet by mouth in the morning. 30 Tablet 3 Benefiber On The GO Oral Powder Take 1 Package by mouth every morning. Levocetirizine Dihydrochloride 5 MG Oral Tablet (Xyzal Allergy 24HR) Take 1 Tablet by mouth every evening. One-A-Day Womens 50 Plus Oral Tablet Take 1 Tablet by mouth every morning. Vitamin D3 25 MCG (1000 UT) Oral Capsule (Cholecalciferol) Take 1 Capsule by mouth in the morning. Pantoprazole Sodium 20 MG Oral Tablet Delayed Release (Protonix) Take 2 Tablets by mouth in the morning. 180 Tablet 3 Simethicone 80 MG Oral Tablet Chewable Take 1 Tablet by mouth every 6 hours as needed for Gas. No current facility-administered medications for this visit. Review of patient's allergies indicates: Allergen Reactions Loratadine Other reaction(s): Migraine Amoxicillin Other reaction(s): Migraine migraine Atorvastatin Other reaction(s): Muscle Pain Myalgia Levofloxacin Other reaction(s): Migraine Lisinopril Dry cough Losartan Other reaction(s): Migraine migraines Pseudoephedrine Other reaction(s): Migraine migraine Most Recent Immunizations Administered Date(s) Administered Pneumococcal Conjugate Vacc, 13 Valent (Prevnar) 10/08/2015 Seasonal Influenza Virus Vaccine, Unspecified Formulation 01/08/2020 Varicella Zoster Vaccine (Adult) 10/08/2015 Review of Systems: Review of Systems Eyes: Positive for pain and itching. Negative for discharge and redness. Physical Exam: BP 100/60 | Pulse 54 Physical Exam HENT: Head: Normocephalic. Eyes: General: Lids are normal. Conjunctiva/sclera: Right eye: Right conjunctiva is not injected. No exudate. Left eye: Left conjunctiva is not injected. No exudate. Cardiovascular: Rate and Rhythm: Normal rate. Pulmonary: Effort: Pulmonary effort is normal. Breath sounds: Normal breath sounds. Neurological: Mental Status: She is alert. Assessment and Plan: 1. Allergic conjunctivitis of both eyes Bilateral No evidence of infection Consider hepa filter Avoid sleeping with windows open I have advised the patient to call our office incase of any worsening or new symptoms. I spent a total of 20-29 minutes (exact time 20 mins) on the date of service in preparation, delivery, and documentation of the care provided to Rosalba Jeong excluding any time spent in the performance of separately billed services. Curtis, ASA, [place] [facility] documented in this encounter Plan of Treatment Upcoming Encounters Date Type Department Care Team (Late st Contact Info) Description 12/17/2023 10:00 AM EDT Office Visit Family [facility] [address] [place] [address] [place] [address] Temi Santos MD [address] [place] [address] 01/05/2024 9:30 AM EDT Office Visit Cardiology, [facility] [address] [place] [address] Allyson Lackey CRNP [address] [place] [address] 01/07/2024 10:00 AM EDT Office Visit Neurology [facility] 200 [facility] [place] [address] Hanny Stallings MD [address] [facility] [place] [address] Health Maintenance Due Date Last Done Comments [...] 11/23/2024 11/24/2023, 03/24 CKD HGB USE SMARTSET 89742 11/23/202411/23, 11/24/2023, 12/03/2022, Additional history exists CKD PHOS USE SMARTSET 14876 11/23/2024 11/24/2023, 0 10/20/2022 TSH 11/23/2024 11/24/2023, [...] as of this encounter Visit Diagnoses Diagnosis Allergic conjunctivitis of both eyes- Primary Other chronic allergic conjunctivitis documented in this encounter Advance Directives * [...] Advance Directives occurred with: Patient Care Teams Forensic Accountant Relationship Specialty Start Date End Date Temi Santos MD [address] [place] [address] PCP - General Family Medicine 05/17/23 documented as of this encounter"
--- OUTSIDE RECORDS SUMMARY | 2024-03-02 20:36 | External Medical Summary | Summary of Care ---
Author Name Unknown Organization [facility] Address [address] [place] [address] Phone [phone] Care Team Providers Care Antique Furniture Reproducer Name Role Phone Nasima Santos MD Primary Care Provider [phone] Reason for Referral * Medication Prior Authorization - Closed Specialty Diagnoses / Procedures Referred By Contmari t Referred To Contact Diagnoses Nausea without vomiting Nasima Santos MD [address] [place] [address] Referral ID Status Reason Start Date Expiration Date Visits Re quested Visits Authorized [id number] Closed 999 999 Reason for Visit * Reason Onset Date Comments Medication Refill 01/05/2024 Encounter Details Date Type Department Care Team (Late st Contact Info) Description 01/05/2024 Refill General [facility] [address] [place] [address] [address] Nasima Santos MD [address] [place] [address] Nausea without vomiting* Allergies Active Allergy Reactions Criticality Noted Date [...] by mouth in the morning. 90 Tablet 08/18/19 24 Active FLUoxetine HCl 20 MG Oral Capsule (PROzac)Indications :Persistent depressive disorder Take 1 capsule by mouth at bedtime 90 Capsule 1 10/12/19 24 Active Levothyroxine Sodium 75 MCG Oral Tablet (Levoxyl) TAKE 1 TABLET BY MOUTH IN THE MORNING 90 Tablet 11/23/19 24 Active Ondansetron 4 MG Oral Tablet Disintegrating (Zofran)Indications :Nausea without vomiting One pill by mouth every 12 hours as needed for Nausea. 20 Tablet 3 01/07/20 24 Active Ondansetron 4 MG Oral Tablet Disintegrating (Zofran) One pill by mouth every 12 hours as needed for Nausea. 20 Tablet 3 08/18/19 24 024 Discontinued(Re fill) Olopatadine HCl 0.1 % Ophthalmic Solution (Dominick) Instill 1 Drop into both eyes in [...] encounter Miscellaneous Notes * Telephone Encounter - Nasima Santos MD - 01/07/2024 10:38 AM EDTSigned Prescriptions: Disp Refills Ondansetron 4 MG Oral Tablet Disintegratin*20 Tab*3 Sig: One pill by mouth every 12 hours as needed for Nausea. Authorizing Provider: NASIMA SANTOS * Telephone Encounter - Yajaira Pickard [facility] - 01/06/2024 3:48 PM EDT Pending Prescriptions: Disp Refills Ondansetron 4 MG Oral Tablet Disintegratin*20 Tab*3 Sig: One pill by mouth every 12 hours as needed for Nausea. * Telephone Encounter - Yajaira Pickard RPh - 01/06/2024 3:46 PM EDT Forwarding to provider for further evaluation. Please approve and authorize additional refills if you would like patient to continue this medication. [facility]: [facility] [facility] Pending Prescriptions: Disp Refills Ondansetron 4 MG Oral Tablet Disintegrati*20 Tab*3 Sig: One pill by mouth every 12 hours as needed for Nausea. Last Visit: 12/03/2022 (in office), Visit date not found (telemedicine) Next Visit: Visit date not found If no future appointments scheduled, and last appointment is greater than a year ago, please schedule patient for a follow-up appointment Last date the medication was ordered: 08/18/23 Is this request for a controlled substance?No Urine Drug Screen:No results found for this or any previous visit. Patient Phone Numbers Labs: Lab Results Component Value Date/Time CREAT 1.1 (H) 11/24/2023 08:55 AM POTASSIUM 4.6 11/24/2023 08:55 AM TSH 2.83 11/24/2023 08:55 AM LDL 122 11/24/2023 08:55 AM ALT 12 11/24/2023 08:55 AM ALT <9 02/24/2022 07:17 AM documented in this encounter Plan of Treatment Upcoming Encounters Date Type Department Care Team (Late st Contact Info) Description 01/24/2024 4:00 PM EST Telemedicine Neurosurgery, [address] [address] Jakob Knight MD [address] [facility] [place], [place] [id number] 06/23/2024 11:00 AM EDT Office Visit Family Practice [facility] 200 [facility] [place] [address] Nasima Santos MD 200 [facility] [place] [address] 07/14/2024 10:00 AM EDT Office Visit Neurology [facility] 200 [facility] [place] [address] Hanny Stallings MD 200 [facility] [place] [address] 07/19/2024 9:30 AM EDT Office Visit Cardiology, [facility] [address] [place] [address] Allyson Lackey CRNP [address] [place] [address] Health Maintenance Due Date Last Done Comments [...] 11/23/2024 11/24/2023, 03/24 CKD HGB USE SMARTSET 84727 11/23/202411/23, 11/24/2023, 12/03/2022, Additional history exists CKD PHOS USE SMARTSET 94408 11/23/2024 11/24/2023, 0 10/20/2022 TSH 11/23/2024 11/24/2023, [...] as of this encounter Visit Diagnoses Diagnosis Nausea without vomiting- Primary documented in this encounter Advance Directives * [...] Advance Directives occurred with: Patient Care Teams Antique Furniture Reproducer Relationship Specialty Start Date End Date Nasima Santos MD [address] [place], [place] [address] PCP - General Family Medicine 05/17/23 documented as of this encounter
--- OUTSIDE RECORDS SUMMARY | 2024-03-02 20:36 | External Medical Summary | Summary of Care ---
Author Name Unknown Organization [facility] Address [address] [place] [address] Phone [phone] Care Team Providers Care Piece Work Checker Name Role Phone Temi Santos MD Primary Care Provider [phone] Reason for Visit * Reason Comments Re-Check Encounter Details Date Type Department Care Team (Late st Contact Info) Description 12/17/2023 10:00 AM EDT Office Visit [facility] [address] [facility] [place] [address] Temi Santos MD 200 [facility] [place] [address] Paroxysmal atrial fibrillation (HCC)*; Mixed hyperlipidemia; Acquired hypothyroidism; Benign hypertension with stage 3a chronic kidney disease (HCC); History of CVA (cerebrovascular accident); Persistent depressive disorder; Blepharitis of left upper eyelid, unspecified type Allergies Active Allergy Reactions Criticality Noted Date Comments Amoxicillin Low 08/29/2021 Other reaction(s): Migraine migraine Atorvastatin Low 08/29/2021 Other reaction(s): Muscle Pain Myalgia Levofloxacin Low 08/29/2021 Other reaction(s): Migraine Lisinopril Low 10/02/2021 Dry cough Loratadine 08/29/2021 Other reaction(s): Migraine Losartan Low 08/29/2021 Other reaction(s): Migraine migraines Pseudoephedrine Low 08/29/2021 Other reaction(s): Migraine migraine documented as of this encounter (statuses as of 12/31/2023) Medications Medication Sig Dispensed Refills Start Date [...] as of this encounter (statuses as of 12/31/2023) Active Problems Problem Noted Date Diagnosed Date [...] as of this encounter (statuses as of 12/31/2023) Resolved Problems Problem Noted Date Diagnosed Date Resolved Date Benign hypertension with CKD (chronic kidney disease) stage III 04/22/2022 12/02/2023 Overview: Per CKD protocol Primary hypertension 10/02/2021 023 documented as of this encounter (statuses as of 12/31/2023) Immunizations Name Administration Dates Next Due Pneumococcal [...] No 04/26/2023 Does the household have a [facility] source of income? (Household - for ages [...] Sign Reading Time Taken Comments Blood Pressure 130/86 12/17/2023 10:05 AM EDT Pulse 54 12/17/2023 10:05 AM EDT Temperature 36.4 C (97.6 F) 12/17/2023 10:05 AM E DT Respiratory Rate 17 12/17/2023 10:05 AM EDT Oxygen Saturation 95% 12/17/2023 10:05 AM EDT Inhaled Oxygen Concentration - - Weight 80.8 kg (178 lb 1.9 oz) 12/17/2023 10:05 AM EDT Height - - Body Mass Index 38.54 05/10/2023 12:56 PM EST documented in this [...] as of this encounter Progress Notes * Temi Santos MD - 12/17/2023 10:11 AM EDT Subjective Chief Complaint Patient presents with Re-Check HPI: Rosalba Jeong is a 83 year old female. Patient is accompanied by her daughter. The following issues were addressed today: Patient has been having watery discharge from left eye. Eyelid is slightly swollen and red. She wasseen on Wednesday and given eye drops but has not noticed an improvement. She follows with cardiology for paroxysmal atrial fibrillation and bradycardia. She is on Toprol XLand anticoagulated with Eliquis. She denies chest pain, palpitations, shortness of breath, or edema. Has seen cerebrovascular surgery for unruptured cerebral aneurysm. Has known about aneurysm for about 10 years. Stable MRA. Had CVA in 2022. She is currently on amlodipine 5mg for hypertension which is well-controlled. Taking levothyroxine 75mcg daily for hypothyroidism. Mood is stable on Prozac 20mg. Review of Systems: See HPI Objective BP 130/86 | Pulse 54 | Temp 36.4 C (97.6 F) (Tympanic) | Resp 17 | Wt 80.8 kg (178 lb 1.9 oz) |SpO2 95% | BMI 38.54 kg/m | BSA 1.8 m Wt Readings from Last 3 Encounters: 12/17/23 80.8 kg (178 lb 1.9 oz) 07/01/23 79.4 kg (175 lb 1.6 oz) 06/25/23 80.5 kg (177 lb 8 oz) BP Readings from Last 3 Encounters: 12/17/23 130/86 12/10/23 100/60 07/01/23 116/72 General: Well-appearing, no acute distress Head: Normocephalic and atraumatic Eyes: No conjunctival injection, no scleral icterus, extraocular movements are intact, left upper eyelid mildly edematous and erythematous, scant watery drainage Cardiovascular: Regular rate and rhythm, no murmur Respiratory: Good respiratory effort, breath sounds equal and clear to auscultation bilaterally Extremities: No edema Neurological: Alert and oriented, no focal deficits noted Psychiatric: Appropriate mood and affect Assessment & Plan 1. Paroxysmal atrial fibrillation (HCC) Stable. Continue current medications. 2. Mixed hyperlipidemia Stable. 3. Acquired hypothyroidism Stable. Continue current dose levothyroxine. 4. Benign hypertension with stage 3a chronic kidney disease (HCC) Stable. 5. History of CVA (cerebrovascular accident) Stable. Continue current medications. 6. Persistent depressive disorder Stable. Continue Prozac. 7. Blepharitis of left upper eyelid, unspecified type Can stop Pataday drops. Recommended warm compresses, lid cleaning wipes. Return in about 6 months (around 06/15/2024). This note was electronically signed by Temi Santos MD documented in this encounter Nursing Notes * Margaret Powell LPN - 12/17/2023 10:03 AM EDT Rosalba Jeong presents for 6 month recheck. Medications & HM reviewed. Was seen on Wednesday for her eyes. Says they have been bothersome. Was put on eye drops but so far not any better. Left eye is blurry and itchy. documented in this encounter Plan of Treatment Upcoming Encounters Date Type Department Care Team (Late st Contact Info) Description 01/05/2024 9:30 AM EDT Office Visit Cardiology, [facility] [address] [place] [address] Allyson Lackey CRNP [address] [place] [address] 01/07/2024 10:00 AM EDT Office Visit Neurology [facility] 200 [facility] [place] [address] Hanny Stallings MD 200 [facility] [place] [address] 06/23/2024 11:00 AM EDT Office Visit Family Practice [facility] 200 [facility] [place] [address] Temi Santos MD 200 [facility] [address] Health Maintenance Due Date Last Done Comments [...] 11/23/2024 11/24/2023, 03/24 CKD HGB USE SMARTSET 24492 11/23/202411/23, 11/24/2023, 12/03/2022, Additional history exists CKD PHOS USE SMARTSET 96917 11/23/2024 11/24/2023, 0 10/20/2022 TSH 11/23/2024 11/24/2023, [...] Paroxysmal atrial fibrillation (HCC)- Primary Atrial fibrillation Mixed hyperlipidemia Acquired hypothyroidism Unspecified hypothyroidism Benign hypertension with stage 3a chronic kidney disease (HCC) History of CVA (cerebrovascular accident) Transient ischemic attack (TIA), and cerebral infarction without residual deficits Persistent depressive disorder Blepharitis of left upper eyelid, unspecified type documented in this encounter Advance Directives * [...] Advance Directives occurred with: Patient Care Teams Piece Work Checker Relationship Specialty Start Date End Date Temi Santos MD 200 [facility] [place] [address] PCP - General Family Medicine 05/17/23 documented as of this encounter"
--- OUTSIDE RECORDS SUMMARY | 2024-03-02 20:36 | External Medical Summary | Summary of Care ---
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 5 mL 1 12/10/2023 Active Qulipta 60 MG Oral TabletIndications:Ch ronic migraine w/o aura, not intractable, w/o stat migr Take 1 Tablet by mouth in the morning. 30 Tablet 3 01/05/2024 Active Qulipta 60 MG Oral TabletIndications:Ch ronic migraine w/o aura, not intractable, w/o stat migr Take 1 Tablet by mouth in the morning. 30 Tablet 3 08/17/2023 01/05/20 24 Discontinu ed(Refill) documented as of this [...] encounter Miscellaneous Notes * Telephone Encounter - Jay Stallings MD - 01/05/2024 12:39 PM EDTSigned Prescriptions: Disp Refills Qulipta 60 MG Oral Tablet 30 Tab*3 Sig: Take 1 Tablet by mouth in the morning. Authorizing Provider: JAY STALLINGS * Telephone Encounter - Sobeida Colunga, Flux - 01/05/2024 10:32 AM EDTPending Prescriptions: Disp Refills Qulipta 60 MG Oral Tablet 30 Tab*3 Sig: Take 1 Tablet by mouth in the morning. documented in this encounter Plan of Treatment Upcoming Encounters Date Type Department Care Team (Late st Contact Info) Description 01/07/2024 10:00 AM EDT Office Visit Neurology [facility] [address] [place] [address] Jay Stallings MD 200 [facility] [address] 06/23/2024 11:00 AM EDT Office Visit Family Practice [facility] [address] [facility] [address] Temi Santos MD 200 [facility] [address] 07/19/2024 9:30 AM EDT Office Visit Cardiology, [facility] [address] [place] [address] Allyson Lackey CRNP [address] [place] [address] Health Maintenance Due Date Last Done Comments [...] 11/23/2024 11/24/2023, 03/24 CKD HGB USE SMARTSET 21363 11/23/202411/23, 11/24/2023, 12/03/2022, Additional history exists CKD PHOS USE SMARTSET 96256 11/23/2024 11/24/2023, 0 10/20/2022 TSH 11/23/2024 11/24/2023, [...] w/o aura, not intractable, w/o stat migr documented in this encounter Advance Directives * [...] Advance Directives occurred with: Patient Care Teams Yarding Engineer Relationship Specialty Start Date End Date Temi Santos MD [address] [place] [address] PCP - General Family Medicine 05/17/23 documented as of this encounter
--- OUTSIDE RECORDS SUMMARY | 2024-03-02 20:36 | External Medical Summary | Summary of Care ---
Author Name Unknown Organization [facility] Address [address] [place] [address] Phone [phone] Care Team Providers Care Typewriter Operator Automatic Name Role Phone Nasima Santos MD Primary Care Provider [phone] Reason for Visit * Reason Onset Date Comments Medication Refill 01/10/2024 Encounter Details Date Type Department Care Team (Late st Contact Info) Description 01/10/[address], [place] [address] [facility] [place] [address] Bk Ruiz PA-C [address] [facility] [address] Persistent depressive disorder Allergies Active Allergy Reactions Criticality Noted Date Comments Amoxicillin Low 08/29/2021 Other reaction(s): Migraine migraine Atorvastatin Low 08/29/2021 Other reaction(s): Muscle Pain Myalgia Levofloxacin Low 08/29/2021 Other reaction(s): Migraine Lisinopril Low 10/02/2021 Dry cough Loratadine 08/29/2021 Other reaction(s): Migraine Losartan Low 08/29/2021 Other reaction(s): Migraine migraines Pseudoephedrine Low 08/29/2021 Other reaction(s): Migraine migraine documented as of this encounter (statuses as of 01/11/2024) Medications Medication Sig Dispensed Refills Start Date [...] Capsule (PROzac)Indications: Persistent depressive disorder Take 1 Capsule by mouth at bedtime. 90 Capsule 1 01/11/2024 Active FLUoxetine HCl 20 MG Oral Capsule (PROzac)Indications: Persistent depressive disorder Take 1 capsule by mouth at bedtime 90 Capsule 1 10/12/2023 01/10/20 24 Discontinu ed(Refill) documented as of this encounter (statuses as of 01/11/2024) Active Problems Problem Noted Date Diagnosed Date [...] as of this encounter (statuses as of 01/11/2024) Resolved Problems Problem Noted Date Diagnosed Date Resolved Date Benign hypertension with CKD (chronic kidney disease) stage III 04/22/2022 12/02/2023 Overview: Per CKD protocol Primary hypertension 10/02/2021 023 documented as of this encounter (statuses as of 01/11/2024) Immunizations Name Administration Dates Next Due Pneumococcal [...] Telephone Encounter - Nasima Santos MD - 01/11/2024 12:40 PM EDTSigned Prescriptions: Disp Refills FLUoxetine HCl 20 MG Oral Capsule (PROzac) 90 Cap*1 Sig: Take 1 Capsule by mouth at bedtime. Authorizing Provider: NASIMA SANTOS * Telephone Encounter - Kassidy Adler LPN - 01/11/2024 10:01 AM EDTPending Prescriptions: Disp Refills FLUoxetine HCl 20 MG Oral Capsule (PROzac) 90 Cap*1 Sig: Take 1 Capsule by mouth at bedtime. * Telephone Encounter - Kassidy Adler LPN - 01/11/2024 10:01 AM EDT Did you pend patient's preferred pharmacy and medication before forwarding?yes Pharmacy: [facility] [address] [address] [place]- [place] Pending Prescriptions: Disp Refills FLUoxetine HCl 20 MG Oral Capsule (PROzac)90 Cap*1 Sig: Take 1 Capsule by mouth at bedtime. Last Visit: Visit date not found (in office), Visit date not found (telemedicine) Next Visit: Visit date not found If no future appointments scheduled, and last appointment is greater than a year ago, please schedule patient for a follow-up appointment Last date the medication was ordered: 10/12/23 Is this request for a controlled substance? Urine Drug Screen:No results found for this or any previous visit. Patient Phone Numbers Labs: Lab Results Component Value Date/Time CREAT 1.1 (H) 11/24/2023 08:55 AM POTASSIUM 4.6 11/24/2023 08:55 AM TSH 2.83 11/24/2023 08:55 AM LDL 122 11/24/2023 08:55 AM ALT 12 11/24/2023 08:55 AM ALT <9 02/24/2022 07:17 AM * Telephone Encounter - Flor Douglass LPN - 01/10/2024 4:13 PM EDTPending Prescriptions: Disp Refills FLUoxetine HCl 20 MG Oral Capsule (PROzac) 90 Cap*1 Sig: Take 1Capsule by mouth at bedtime. documented in this encounter Plan of Treatment Upcoming Encounters Date Type Department Care Team (Late st Contact Info) Description 01/24/2024 4:00 PM EST Telemedicine Neurosurgery, [place] [address] [place] [address] Jkaob Knight MD [address] [place] [phone] 06/23/2024 11:00 AM EDT Office Visit Family Practice [facility] 200 [place] [address] Nasima Santos MD [address] [place] [address] 07/14/2024 10:00 AM EDT Office Visit Neurology [facility] [address] [place] [address] Hanny Stallings MD [address] [place] [address] 07/19/2024 9:30 AM EDT Office Visit Cardiology, [facility] [address] [facility] [place] [address] Allyson Lackey CRNP [address] [place] [address] Health Maintenance Due Date Last Done Comments DXA Scan 2005 Adult Wellness Visit 2006 Pneumococcal Vaccine: 65+ Years (2 of 2 - PPSV23 or PCV20) 10/07/2016 10/08/2015 Depression Monitoring 09/03/2023 09/02/2022 COVID-19 Vaccine ( - season) 2023 Influenza Vaccine (FLU shot) (#1) 2023 01/08/2020, 01/08/2020, 01/16/2019, Additional history exists GFR 05/23/2024 11/24/2023, 11/20, 10/20/2022, Additional history exists Albumin/Creatinine Ratio 11/23/2024 11/24/2023, 03/24 CKD HGB USE SMARTSET 94526 11/23/202411/23, 11/24/2023, 12/03/2022, Additional history exists CKD PHOS USE SMARTSET 01752 11/23/2024 11/24/2023, 0 10/20/2022 TSH 11/23/2024 11/24/2023, [...] as of this encounter Visit Diagnoses Diagnosis Persistent depressive disorder documented in this encounter Advance Directives * [...] Advance Directives occurred with: Patient Care Teams Typewriter Operator Automatic Relationship Specialty Start Date End Date Nasima Santos MD [address] [place] [address] PCP - General Family Medicine 05/17/23 documented as of this encounter
--- OUTSIDE RECORDS SUMMARY | 2024-03-02 20:36 | External Medical Summary | Summary of Care ---
Author Name Unknown Organization [facility] Address [address] [place] [address] Phone [phone] Care Team Providers Care Tablet Making Machine Operator Helper Name Role Phone Temi Santos MD Primary Care Provider [phone] Reason for Visit * Reason Comments Outpatient Testing Encounter Details Date Type Department Care Team (Late st Contact Info) Description 11/24/2023 9:00 AM EDT Laboratory Laboratory, [facility] 132 [facility] [place] [id number] [facility] [address] [facility] [place] [address] EMILIA (obstructive sleep apnea); Benign hypertension with [...] No 04/26/2023 Does the household have a [facility] source of income? (Household - for [...] shopping? (15 years old or older) Yes 02/02/20 23 Cognitive Status Response Date of Assessm ent Because of a physical, menta l, or emotional condition, do you have serious difficulty concentrating, remembering, or making decisions? (5 years old or older) No 04/23/2022 documented as of this encounter Plan of Treatment Upcoming Encounters Date Type Department Care Team (Late st Contact Info) Description 12/17/2023 10:00 AM EDT Office Visit Family Practice [facility] 200 [facility] [place] [address] Temi Santos MD [address] [facility] [place] [address] 01/05/2024 9:30 AM EDT Office Visit Cardiology, [facility] [address] [place] [address] Allyson Lackey CRNP [address] [place] [address] 01/07/2024 10:00 AM EDT Office Visit Neurology [facility] [address] [facility] [place] [address] Hanny Stallings MD 200 [facility] [place] [address] Pending Results Name Type Priority Associated Diagnoses [...] (obstructive sleep apnea) 11/24/2023 8:55 AM EDT Health Maintenance Due Date Last Done Comments DXA Scan 2005 Adult Wellness Visit 2006 Pneumococcal Vaccine: 65+ Years (2 of 2 - PPSV23 or PCV20) 10/07/2016 10/08/2015 Albumin/Creatinine Ratio 04/21/2023 04/21/2022 GFR 06/03/2023 12/03/2022, 08/0 03/2022, 04/25/2022, Additional history exists Depression Monitoring 09/03/2023 09/02/2022 CKD PHOS USE SMARTSET 55592 10/21/2023 10/20/2022 TSH 10/21/2023 10/20/2022, 04/21/2022 COVID-19 Vaccine ( season) 2023 Influenza Vaccine (FLU shot) (#1) 2023 01/08/2020, 01/08/2020, 01/16/2019, Additional history exists CKD HGB USE SMARTSET 88386 12/04/202312/03, 10/20/2022, 04/25/2022, Additional history exists Zoster [...] Advance Directives occurred with: Patient Care Teams Tablet Making Machine Operator Helper Relationship Specialty Start Date End Date Temi Santos MD [address] [place], [place] [address] PCP - General Family Medicine 05/17/23 documented as of this encounter
--- OUTSIDE RECORDS SUMMARY | 2024-03-02 20:37 | External Medical Summary ---
Author Name Unknown Address Unknown Organization [id number]:[facility] [place] [address] Laboratory Report Ordering Provider Test Date Status AISHA DEL REAL 11/24/2023 08:55:38 Final Observation Date Value Abnormality Reference (Units ) Status BUN 11/24/2023 08:55:38 21 Above high normal 6-20 (mg/dL) Final Creatinine 11/24/2023 08:55:38 1.1 Above high normal 0.5-1.0 (mg/dL) Final Glomerular filtration rate/1.73 sq M.predicted [Volume Rate/Area] in Serum, Plasma or Blood by Creatinine-based formula (CKD-EPI) 11/24/2023 08:55:38 52 Below low normal >=60 (mL/min) Final eGFR is calculated based on the CKD-EPI 2020 equation. Sodium 11/24/2023 08:55:38 140 135-146 (m mol/L) Final Potassium 11/24/2023 08:55:38 4.6 3.5-5.1 (m mol/L) Final Cl 11/24/2023 08:55:38 105 98-107 (mm ol/L) Final CO2 11/24/2023 08:55:38 29 22-32 (mmo l/L) Final Anion gap 11/24/2023 08:55:38 6 Below low normal 7-1 5 (mmol/L) Final Glucose 11/24/2023 08:55:38 83 70-120 (mg /dL) Final Albumin 11/24/2023 08:55:38 3.7 Below low normal 3.8 -5.0 (g/dL) Final AST (Aspartate aminotransferase) 11/24/2023 08:55:38 13 10-35 (U/L) Fin al Alk Phos 11/24/2023 08:55:38 96 35-130 (U/ L) Final Bilirubin, Total 11/24/2023 08:55:38 0.4 <=1 .2 (mg/dL) Final Calcium 11/24/2023 08:55:38 9.2 8.4-10.2 ( mg/dL) Final Protein 11/24/2023 08:55:38 6.0 6.0-8.3 (g /dL) Final ALT (Alanine aminotransferase) 11/24/2023 08:55:38 12 10-35 (U/L) Ko koenig Performing Location [facility] [place] [facility] - [address] [facility] [address]
--- OUTSIDE RECORDS SUMMARY | 2024-03-02 20:37 | External Medical Summary ---
Author Name Unknown Address Unknown Organization [id number][facility] [address] [place] [address] Laboratory Report Ordering Provider Test Date Status AISHA DEL REAL 11/24/2023 08:55:38 Final Observation Date Value Abnormality Reference (Units ) Status TSH 11/24/2023 08:55:38 2.83 0.27-4.20 (uIU/mL) Final Performing Location [facility] [place] [address] [place] [address]
--- OUTSIDE RECORDS SUMMARY | 2024-03-02 20:37 | External Medical Summary ---
Author Name Unknown Address Unknown Organization [id number]:[facility] [place] [facility] [address] [place] [address] Laboratory Report Ordering Provider Test Date Status IRA DEL REALOLLY 11/24/2023 09:21:53 Final Normal: <30 mg/g creatinine< br/>High: 30-300 mg/g creatinine
Very High: >300 mg/g creatinine
Nephrotic: >2200 mg/g creatinine Observation Date Value Abnormality Reference (Units ) Status Albumin, Urine 11/24/2023 09:21:53 2.00 (mg/dL) Final Creatinine, Urine 11/24/2023 09:21:53 150 (mg/dL) Final Albumin/Creatinine [Mass Ratio] in Urine 11/24/2023 09:21:53 13 <30 (mg/g Creat) Final Performing Location [facility] [place] [facility] [address] [place] [address]
--- OUTSIDE RECORDS SUMMARY | 2024-03-02 20:37 | External Medical Summary | Summary of Care ---
Author Name Unknown Organization [facility] Address [address] [place] [address] Phone [phone] Care Team Providers Care Clinical Application Consultant Name Role Phone Temi Santos MD Primary Care Provider [phone] Reason for Visit * Reason Comments eRx-Medication Refill Encounter Details Date Type Department Care Team (Late st Contact Info) Description 10/12/2023 Refill General Internal Medicine [facility] [address] [facility] [place] [address] Hailee Murillo PA-C [facility] [place] [address] Persistent depressive disorder Allergies Active Allergy Reactions [...] as of this encounter (statuses as of 10/12/2023) Medications Medication Sig Dispensed Refills Start Date End Date Status Levothyroxine Sodium 75 MCG Oral Tablet (Levoxyl) Take 1 Tablet by mouth in the morning. 90 Tablet 3 12/04/2022 Active Simethicone 80 MG Oral Tablet Chewable Take [...] at bedtime 90 Capsule 1 10/12/2023 Active FLUoxetine HCl 20 MG Oral Capsule (PROzac)Indications: Persistent depressive disorder Take 1 Capsule by mouth at bedtime. 90 Capsule 3 10/23/2022 4 Discontinued documented as of this encounter (statuses as of 10/12/2023) Active Problems Problem Noted Date Diagnosed Date [...] as of this encounter (statuses as of 10/12/2023) Resolved Problems Problem Noted Date Diagnosed Date Resolved Date Primary hypertension 10/02/2021 023 documented as of this encounter (statuses as of 10/12/2023) Immunizations Name Administration Dates Next Due Pneumococcal [...] No 04/26/2023 Does the household have a healthsource [place] source of income? (Household - for ages [...] encounter Miscellaneous Notes * Telephone Encounter - Greg Beltrán [facility] - 10/12/2023 1:32 PM EDTSigned Prescriptions: Disp Refills FLUoxetine HCl 20 MG Oral Capsule (PROzac) 90 Cap*1 Sig: Take 1capsule by mouth at bedtimeAuthorizing Provider: HAILEE MURILLO User: GREG BELTRÁN--- documented in this encounter Plan of Treatment Upcoming Encounters Date Type Department Care Team (Late st Contact Info) Description 11/24/2023 9:00 AM EDT Laboratory Laboratory, [facility] [address] [facility] [place] [phone] [facility]manzar [address] [facility] [place] [address] 12/03/2023 10:40 AM EDT Office Visit Family Practice [facility] [address] [place] [address] Temi Santos MD [address] [place] [address] 01/05/2024 9:30 AM EDT Office Visit Cardiology, [facility] [address] [place] [address] Allyson Lackey CRNP [address] [facility] [place] [address] 01/07/2024 10:00 AM EDT Office Visit Neurology [facility] [place] [address] [place] [address] Hanny Stallings MD [address] [place] [address] 01/10/2024 11:00 AM EDT Office Visit Neurosurgery, [place] [address] [place] [address] Jakob Knight MD [address] [place] [address] Health Maintenance Due Date Last Done Comments DXA Scan 2005 Pneumococcal Vaccine: 65+ Years (2 of 2 - PPSV23 or PCV20) 10/07/2016 10/08/2015 COVID-19 Vaccine (1 - season) 2022 Albumin/Creatinine Ratio 04/21/2023 04/21/2022 GFR 06/03/2023 12/03/2022, 08/0 03/2022, 04/25/2022, Additional history exists Depression Monitoring 09/03/2023 09/02/2022 CKD PHOS USE SMARTSET 43876 10/21/2023 10/20/2022 TSH 10/21/2023 10/20/2022, 04/21/2022 Influenza Vaccine (FLU shot) (#1) 2023 01/08/2020, 01/08/2020, 01/16/2019, Additional history exists CKD HGB USE SMARTSET 82619 12/04/202312/03, 10/20/2022, 04/25/2022, Additional history exists Zoster Vaccines Discontinued 10/08/2015 DTaP,Tdap,and Td Vaccines Discontinued HPV (Gardasil) Vaccine Aged Out [...] Advance Directives occurred with: Patient Care Teams Clinical Application Consultant Relationship Specialty Start Date End Date Temi Santos MD [address] [place] [address] PCP - General Family Medicine 05/17/23 documented as of this encounter
--- OUTSIDE RECORDS SUMMARY | 2024-03-02 20:37 | External Medical Summary ---
Author Name Unknown Address Unknown Organization [facility] [address] [place] [address] Laboratory Report Ordering Provider Test Date Status AISHA DEL REAL 11/24/2023 08:55:38 Final Observation Date Value Abnormality Reference (Units ) Status WBC, Total 11/24/2023 08:55:38 7.79 4.00-10.8 0 (K/uL) Final RBC 11/24/2023 08:55:38 4.44 3.85-5.15 (M/uL) Final Hemoglobin 11/24/2023 08:55:38 13.2 12.0-15.3 (g/dL) Final HCT 11/24/2023 08:55:38 42.0 36.0-45.2 (%) Final MCV 11/24/2023 08:55:38 94.6 81.5-97.5 (fL) Final MCH 11/24/2023 08:55:38 29.7 27.0-34.0 (pg) Final MCHC 11/24/2023 08:55:38 31.4 32.0-36.0 (g/dL) Final RDW 11/24/2023 08:55:38 13.5 11.5-15.5 (%) Final Platelets 11/24/2023 08:55:38 205 140-400 (K /uL) Final MPV 11/24/2023 08:55:38 10.9 6.6-11.1 ( fL) Final Performing Location [facility] [address] [place] [address]
--- OUTSIDE RECORDS SUMMARY | 2024-03-02 20:37 | External Medical Summary ---
Author Name Unknown Address Unknown Organization [facility] [address] [place] [address] Laboratory Report Ordering Provider Test Date Status AISHA DEL REAL 11/24/2023 08:55:38 Final Observation Date Value Abnormality Reference (Units ) Status SYNC LEUKOCYTES IN BLOOD BY AUTOMATED COUNT 11/24/2023 08:55:38 7.79 4.00-10.80 (K/uL) Final Segs 11/24/2023 08:55:38 72.3 40.0-75.0 (%) Final Lymphs % 11/24/2023 08:55:38 15.5 Below low normal 18.0-42.0 (%) Final Monos 11/24/2023 08:55:38 7.7 1.0-11.0 (%) Final Eosinophils 11/24/2023 08:55:38 4.2 0.0-6.0 (%) Final Basos 11/24/2023 08:55:38 0.3 0.0-2.0 (%) Final Absolute Segs 11/24/2023 08:55:38 5.63 1.80-7.70 (K/uL) Final Lymphs, absolute 11/24/2023 08:55:38 1.21 1.00-4.80 (K/ul) Final Monos, Abs 11/24/2023 08:55:38 0.60 0.00-1.10 (K/uL) Final Eos, Abs 11/24/2023 08:55:38 0.33 0.00-0.70 (K/uL) Final Basos, Abs 11/24/2023 08:55:38 0.02 0.00-0.20 (K/uL) Final Performing Location [facility] [address] [place] [address]
== END 2024-03-02 18:00 | disposition home or self-care (01) | DRG 309 ==
LOC: ED 09:57 → 2W 11:34 → INTOOBSV 11:34 → SUATTDRO 11:34 → 2W 12:35